=== PATIENT | female | born 1935 | race Caucasian/White ===

== ENCOUNTER 2016-05-27 10:36 | Outpatient (CLI) | payer MEDICARE, OTHER | END 2016-05-27 10:37 | disposition home or self-care (01) | DX: Z00.00 Encounter for general adult medical examination without abnormal findings (principal); E78.5 Hyperlipidemia, unspecified; J30.9 Allergic rhinitis, unspecified; K21.9 Gastro-esophageal reflux disease without esophagitis; M25.552 Pain in left hip; R73.01 Impaired fasting glucose; E66.9 Obesity, unspecified; I83.10 Varicose veins of unspecified lower extremity with inflammation; I10 Essential (primary) hypertension; R32 Unspecified urinary incontinence; I87.2 Venous insufficiency (chronic) (peripheral) ==

== ENCOUNTER 2016-06-18 14:01 | Outpatient (CLI) | payer MEDICARE, OTHER | END 2016-06-18 14:02 | disposition home or self-care (01) | DX: M19.012 Primary osteoarthritis, left shoulder (principal) ==

== ENCOUNTER 2016-07-02 17:47 | Outpatient (CLI) | payer MEDICARE, OTHER | END 2016-07-02 17:48 | disposition home or self-care (01) | DX: M75.102 Unspecified rotator cuff tear or rupture of left shoulder, not specified as traumatic (principal); M19.012 Primary osteoarthritis, left shoulder; M62.512 Muscle wasting and atrophy, not elsewhere classified, left shoulder ==

== ENCOUNTER 2017-05-15 11:55 | Outpatient (CLI) | payer MEDICARE, OTHER | END 2017-05-15 11:56 | disposition critical access hospital (66) | LOC: EMS 11:55 | PROVIDERS: ATTEND Surgery | DX: M25.561 Pain in right knee (principal); R21 Rash and other nonspecific skin eruption | CPT/HCPCS: A0425; A0427 ==

== ENCOUNTER 2017-05-15 12:23 | Inpatient (IN) | payer MEDICARE, OTHER ==
[2017-05-15] MEDS ORDERED: SODIUM CHLORIDE 0.9% 1,000 ML IV ONE (12:42)
[2017-05-15] MEDS ORDERED: ACETAMINOPHEN 1,000 MG/100 ML 100 ML IV STA (12:49)
[2017-05-15 13:14] LABS: BASOPHILS % (AUTO) 0.2 %; HGB - HEMOGLOBIN 12.3 g/dL (12.0-16.0); LYMPHOCYTES # (AUTO) 0.7 10^3/uL (1.5-3.5); LYMPHOCYTES % (AUTO) 4.2 %; MEAN CORPUSCULAR HEMOGLOBIN 29.8 pg (27.0-31.0); MEAN CORPUSCULAR HGB CONC 32.8 g/dL (32.0-36.0); MEAN CORPUSCULAR VOLUME 90.7 fL (81.0-99.0); MEAN PLATELET VOLUME 7.1 fL (7.9-10.8); MONOCYTES # (AUTO) 1.1 10^3/uL (0.0-1.0); MONOCYTES % (AUTO) 6.6 %; NEUTROPHILS # (AUTO) 15.1 10^3/uL (1.5-6.6); PLT - PLATELET COUNT 210 10^3/uL (130-450); RED BLOOD COUNT 4.12 10^6/uL (4.20-5.40); RED CELL DISTRIBUTION WIDTH 14.2 % (12.0-15.0)
[2017-05-15 13:24] LABS: CALCIUM 9.4 mg/dL (8.5-10.3); CREATININE 0.8 mg/dL (0.4-1.0)
[2017-05-15] MEDS ORDERED: VANCOMYCIN INJ 1 GM in SODIUM CHLORIDE 0.9% 250 ML IV STA (13:35)
[2017-05-15] MEDS ORDERED: PIPERACILLIN/TAZOBACTAM 3.375 GM in SODIUM CHLORIDE 0.9% MINIBAG 100 ML IV STA (13:35)
--- NOTE | 2017-05-15 13:55 | ED Physician Documentation ---
History of Present Illness - Stated complaint Stated Complaint: R KNEE PX - Chief complaint Chief Complaint: Ext Problem - Additonal information Additional information: hx from pt 81 female s/p R total knee by Dr Garcia [facility] 2014 has venous insuff and an ulcer to her RLE and recurrent strep cellulitis 4 days of "flu like sx" fever myalgia fatigue and 2 days of severe R knee pain RLE is warm and red more than normal for her no cough NVD Review of Systems Constitutional: reports: Fever, Chills, Myalgias, Fatigue Respiratory: denies: Cough GI: denies: Abdominal Pain, Nausea, Vomiting, Diarrhea : denies: Dysuria Skin: reports: Rash Musculoskeletal: reports: Extremity pain, Joint pain Endocrine: denies: Easy bruising / bleeding Immunocompromised: denies: Immunocompromised PD PAST MEDICAL HISTORY - Past Medical History Neuro: Headache/migraine GI: GERD, Hiatal hernia - Past Surgical History Past Surgical History: Yes Ortho: Knee replacement /OPERATIONS CONSULTANT: Hysterectomy - Present Medications Home Medications: Ambulatory Orders Medication Instructions Recorded Confirmed Fexofenadine HCl 180 mg PO DAILY 02/22/16 02/22/16 Losartan Potassium [Losartan 100 mg PO DAILY 02/22/16 05/15/17 Potassium] Omeprazole 20 mg PO BID 02/22/16 02/22/16 - Allergies Allergies/Adverse Reactions: Allergies Allergy/AdvReac Type Severity Reaction Status Date / Time naproxen AdvReac Unknown Verified 02/22/16 20:27 - Social History Does the pt smoke?: No Smoking Status: Never smoker Does the pt drink ETOH?: Yes Does the pt have substance abuse?: No - Immunizations Immunizations are current?: Yes - POLST Patient has POLST: No PD ED PE NORMAL - Vitals Vital signs reviewed: Yes - General General: Alert and oriented X 3 - Cardiac Cardiac: RRR, No murmur - Respiratory Respiratory: No respiratory distress, Clear bilaterally - Abdomen Abdomen: Soft, Non tender - Derm Derm: Other (cellulitis RLE, approx 2 cm ulcer distal medial pretibial region with eschar, R knee warm red and swollen and severely painful to try and range, + MSV to foot, no crepitus or bullae) - Extremities Extremities: Other (see derm exam) - Neuro Neuro: Alert and oriented X 3, No motor deficit, No sensory deficit - Psych Psych: Normal mood Results - Vitals Vitals: Vital Signs - 24 hr 05/15/17 05/15/17 12:30 16:04 Temperature 36.8 C 36.8 C Heart Rate 87 81 Respiratory 18 20 Rate Blood Pressure 181/69 H 129/72 O2 Saturation 97 97 Oxygen O2 Source Room air - Labs Labs: Microbiology 05/15/17 13:30 Gram Stain - Final Synovial Fluid Laboratory Tests 05/15/17 05/15/17 05/15/17 12:42 13:07 13:07 WBC 17.0 H RBC 4.12 L Hgb 12.3 Hct 37.4 MCV 90.7 MCH 29.8 MCHC 32.8 RDW 14.2 Plt Count 210 MPV 7.1 L Neut # 15.1 H Lymph # 0.7 L Beckham # 1.1 H Eos # 0.0 Baso # 0.0 Absolute Nucleated RBC 0.00 Nucleated RBC % 0.0 Sodium 136 Potassium 3.4 L Chloride 97 L Carbon Dioxide 24 Anion Gap 15.0 H BUN 18 Creatinine 0.8 Estimated GFR (MDRD) 69 L Glucose 156 H Lactic Acid 1.1 Calcium 9.4 Fluid Source Fluid Color Fluid Clarity Fluid WBC Fluid RBC Fluid Neutrophils % Fluid Lymphocytes % Fluid Monocytes % Fld Mesothelial Cell % Fluid Crystals 05/15/17 05/15/17 13:30 13:30 WBC RBC Hgb Hct MCV MCH MCHC RDW Plt Count MPV Neut # Lymph # Beckham # Eos # Baso # Absolute Nucleated RBC Nucleated RBC % Sodium Potassium Chloride Carbon Dioxide Anion Gap BUN Creatinine Estimated GFR (MDRD) Glucose Lactic Acid Calcium Fluid Source SYNOVIAL FLUID Fluid Color BLOODY Fluid Clarity CLOUDY Fluid WBC 95169 Fluid RBC 53764 Fluid Neutrophils % 92 Fluid Lymphocytes % 2 Fluid Monocytes % 6 Fld Mesothelial Cell % Not Reportable Fluid Crystals NONE SEEN - Rads (name of study) knee Radiology: See rad report (total knee hardware, no subcut gas) PD MEDICAL DECISION MAKING - ED course ED course: RLE cellultiis likely 2/2 venous insuff ulcer, hx strep cellulitis, now spread to knee and exam suggests septic prosthetic knee spoke to Prov ortho and Dr Garcia is not the television production technician - so television production technician ortho advises could be tapped here at [facility] by ortho Dr Rios promptly to ER to see pt and agrees with concern and tapped knee - approx 40 cc cloudy pinkish fluid synovial fluid shows 40K WBC which is borderline - no organisms on gram stain d/w ortho Dr Rios again and he rec tx for cellultiis and wait for cultures on synovial fluid - if + growth will need surgery will admit to hospitalist with ortho consulting Departure - Departure Disposition: 66 [facility] DC/Xfer Clinical Impression: Cellulitis Qualifiers: Site of cellulitis: extremity Site of cellulitis of extremity: lower extremity Laterality: right Qualified Code(s): L03.115 - Cellulitis of right lower limb Condition: Fair
--- NOTE | 2017-05-15 13:56 | XRAY Report ---
EXAM: RIGHT KNEE RADIOGRAPHY EXAM DATE: 05/15/2017 01:21 PM. CLINICAL HISTORY: Infected total knee. COMPARISON: None. TECHNIQUE: 2 views. FINDINGS: Bones: Status post total knee arthroplasty with expected position of the components. No rachel-hardware lucency. No acute fracture. Joints: No dislocation. Small effusion. Soft Tissues: Diffuse soft tissue edema. IMPRESSION: Knee joint effusion. No evidence of hardware loosening. LYNDSEY Referring Provider Line: [phone] SITE ID: [id number]
[2017-05-15 14:02] LABS: CC,BF RBC 17188 /mm^3
[2017-05-15 15:30] LABS: LYMPHOCYTES %,BODY FLUID 2
[2017-05-15 15:31] LABS: BF SOURCE SYNOVIAL FLUID; MONOCYTES %,BODY FLUID 6 %
[2017-05-15 15:33] LABS: BF COLOR BLOODY
[2017-05-15] MEDS ORDERED: POTASSIUM CHLORIDE 20 MEQ TABLET PO STA (17:09)
[2017-05-15] MEDS ORDERED: SODIUM CHLORIDE FLUSH 0.9% 10 ML SYRINGE IVP PRN (17:10)
[2017-05-15] MEDS ORDERED: ZOLPIDEM 5 MG TABLET PO PRN (17:10)
[2017-05-15] MEDS ORDERED: ONDANSETRON 4 MG/2 ML VIAL IVP PRN (17:10)
--- NOTE | 2017-05-15 17:20 | HISTORY & PHYSICAL EXAMINATION ---
Chief Complaint - Chief Complaint Chief Complaint: right knee pain History of Present Illness - Admitted From Admitted From:: ER - History Obtained From History obtained from: pt - History of Present Illness HPI Comment/Other: Ms. Jo is a 81-year-old female with a past medical history significant for recurrence cellulits on bilateral lower extremities, mainly on right lower extremity, venous insufficiency, right knee replacement on 2013, headache/ migraine, GERD, hiatal hernia, who present ER complaint of right knee pain. Pt report she had right knee replacement on 2013 on [facility] by Dr. Garcia. Pt report since this surgery her right lower extremity appear size bigger than left one. Pt also report she usually got cellulitis on bilateral lower extremities every six months, right lower extremity more than left one. In last infection, her skin on right lower extremity was teared, and Pt report the wound culture was positive for staphylococcus aureus. Pt report she had 4 days of Flu-like symptoms, lower degree fever at 100.6, fatigue, myalgia. She also report she had 2 days severe right knee pain. She report her right lower extremity is warm, erythema than her normal status. Pt denies chest pain, shortness of breath, cough, abdominal pain, nausea, vomiting, diarrhea, vision changing. Xray of knee reveals joint effusion, but no evidence of hardware loosening. Surgeon Dr. Rios drain synovial fluid from right knee. The fluid reveals no positive gram staining [place] preliminary [place] [address]. The synovial culture is pending. In lab test, there is elevated WBC in CBC, K is 3.4 , otherwise, it is unremarkable. History - Past Medical History Neuro: reports: Headache/migraine GI: reports: GERD, Hiatal hernia MRSA Hx?: No - Past Surgical History Ortho: reports: Knee replacement /BUFFERER: reports: Hysterectomy - Family & Social History Family History Comment/Other: pt with her is living at [facility], no child. Living arrangement: At home Living Situation: With spouse/s.o. Social History Notes: pt denies cigarette smoking, alcoholic or drug abuse. - Substance History Use: Uses substance without health or social issues: NONE Abuse: Recurrent use of substance despite neg consequences: NONE Dependence: Experiences withdrawal or developed tolerances: NONE - POLST Patient has POLST: No POLST Status: Full Code (with CPR but no incubation.) Meds/Allgy - Home Medications Home Medications: Ambulatory Orders Medication Instructions Recorded Confirmed Fexofenadine HCl 180 mg PO DAILY 02/22/16 02/22/16 Losartan Potassium [Losartan 100 mg PO DAILY 02/22/16 05/15/17 Potassium] Omeprazole 20 mg PO BID 02/22/16 02/22/16 - Allergies Allergies/Adverse Reactions: Allergies Allergy/AdvReac Type Severity Reaction Status Date / Time naproxen AdvReac Unknown Verified 02/22/16 20:27 Review of Systems - Constitutional Constitutional: reports: Fever, Chills, Malaise. denies: Fatigue, Weakness, Poor appetite, Diaphoresis, Night sweats - Eyes Eyes: denies: Pain, Irritation, Amaurosis, Blurred vision, Spots in vision, Field loss, Vision loss, Dipolpia - Ears, Nose & Throat Ears, Nose & Throat: denies: Ear pain, Hearing loss, Hearing aids, Vertigo, Nasal pain, Nasal discharge, Nosebleeds, Nasal congestion, Dentures, Sore throat , Hoarseness, Mouth lesions, Bleeding gums - Cardiovascular Cariovascular: denies: Irregular heart rate, Palpitations, Chest pain, Edema, Lightheadedness, Syncope, Exertional dyspnea, Decr. exercise tolerance - Respiratory Respiratory: denies: Cough, Sputum production, Wheezing, Snoring, Hemoptysis, Orthopnea, SOB at rest, SOB with exertion, Apnea - Gastrointestinal Gastrointestinal: denies: Abdominal pain, Abdominal distention, Constipation, Diarrhea, Change in bowel habits, Rectal bleeding, Black stools, Bloody stools, Nausea, Vomiting, Wong blood emesis, Coffee grounds emesis - Genitourinary Genitourinary: denies: Dysuria, Frequency, Urgency, Hematuria, Incontinence, Flank pain, Nocturia - Musculoskeletal Musculoskeletal: reports: Joint pain, Joint swelling. denies: Muscle pain, Back pain, Muscle aches, Stiffness, Limited range of motion, Muscle weakness, Gout - Integumentary Integumentary: reports: Rash. denies: Pruritis, Lesions, Dryness, Lumps, Acne, Pigment changes, Nail changes - Neurological Neurological: denies: General weakness, Focal weakness, Headache, Dizziness, Numbness, Memory problems, Pre-existing deficit, Abnormal gait, Seizures, Incoordination, Slurred speech - Psychiatric Psychiatric: denies: Depression, Anxiety, Suicidal, Delusions, Hallucinations, Homicidal - Endocrine Endocrine: denies: Polyuria, Polydypsia, Polyphagia, Intolerance to cold - Hematologic/Lymphatic Hematologic/Lymphatic: reports: Recurrent infections. denies: Anemia, Bruising , Petechiae, Blood clots, Lymphadenopathy, Bleeding tendencies Exam - Vital Signs Reviewed Vital Signs: Yes Vital Signs: Vital Signs x48h Temp Pulse Resp BP Pulse Ox 05/15/17 16:04 36.8 C 81 20 129/72 97 05/15/17 12:30 36.8 C 87 18 181/69 H 97 - Physical Exam General Appearance: positive: No acute distress, Alert. negative: Lethargic Eyes Bilateral: positive: Normal inspection, PERRL, No lid inflammation, Conjunctivae nml ENT: positive: ENT inspection nml, Pharynx nml, No signs of dehydration. negative: Purulent nasal drainage, Pharyngeal erythema, Oral lesions Neck: positive: Nml inspection, Thyroid nml, No JVD, Trachea midline. negative : Thyromegaly, Lymphadenopathy (R), Lymphadenopathy (L), Stiff neck, Carotid bruit, Swelling/bruising, Tracheal deviation Respiratory: positive: Chest non-tender, No respiratory distress, Breath sounds nml. negative: Wheezes, Rales, Rhonchi Cardiovascular: positive: Regular rate & rhythm, No murmur, No gallop. negative : Irregularly irregular, Extrasystoles, Tachycardia, Bradycardia, Systolic murmur, Diastolic murmur Peripheral Pulses: positive: 2+ Abdomen: positive: Non-tender, No organomegaly, Nml bowel sounds, No distention. negative: Tenderness, Guarding, Rebound Back: positive: Nml inspection. negative: CVA tenderness (R), CVA tenderness (L ) Skin: positive: Color nml, Warm, Dry, Skin rash. negative: Cyanosis, Diaphoresis, Pallor Extremities: positive: Non-tender, Full ROM, Nml appearance. negative: Calf tenderness, Joint swelling, Dolores's sign/cords Neurologic/Psychiatric: positive: Oriented x3, Sensation nml, Mood/affect nml. negative: Sensory loss, Facial droop, Slurred/abnml speech, Depressed mood/ affect Conclusion/Plan - Problem List (1) Cellulitis Conclusion/Plan: recurrent cellulits, positive staph., and possible knee synovial infection. reported fever at home, significant elevated WBC, consideration of SIRS or pre- septic condition Vancomycin Zosyn follow knee synovial culture follow blood culture IVF elevate lower extremity for venous insufficiency Qualifiers: Site of cellulitis: extremity Site of cellulitis of extremity: lower extremity Laterality: right Qualified Code(s): L03.115 - Cellulitis of right lower limb (2) Right knee pain Conclusion/Plan: consult with Orthopedics follow up synovial culture continue antibiotics pain control status post of knee replacement, consult with PT (3) HTN (hypertension) Conclusion/Plan: stable, resume of Losartan vital monitor (4) Migraine Conclusion/Plan: hx of headache/migraine, stable, continue monitor (5) GERD (gastroesophageal reflux disease) Conclusion/Plan: stable, Pepcid prophylaxis daily (6) DVT prophylaxis Conclusion/Plan: SCD and Lovenox (7) Full code status Conclusion/Plan: pt request clearly full code with CPR but without incubation. - Lab Results Fish Bones: 05/16/17 05:00 05/16/17 05:00 Core Measures - Anticipated LOS I expect patient to be DC'd or transferred within 96 hours.: Yes
[2017-05-15] MEDS ORDERED: VANCOMYCIN PER PHARMACY 1.5 GM in SODIUM CHLORIDE 0.9% 250 ML IV SCH (18:00)
[2017-05-15] MEDS: ACETAMINOPHEN 325 MG TABLET PO PRN (18:37)
[2017-05-15] MEDS: PIPERACILLIN/TAZOBACTAM 3.375 GM in SODIUM CHLORIDE 0.9% MINIBAG 100 ML IV SCH (19:43)
[2017-05-15] MEDS: SODIUM CHLORIDE 0.9% 1,000 ML IV SCH (19:43)
[2017-05-15] MEDS: SODIUM CHLORIDE FLUSH 0.9% 10 ML SYRINGE IVP SCH (19:49)
[2017-05-16] MEDS: ACETAMINOPHEN 325 MG TABLET PO PRN ×5 (00:35→22:45)
[2017-05-16] MEDS: PIPERACILLIN/TAZOBACTAM 3.375 GM in SODIUM CHLORIDE 0.9% MINIBAG 100 ML IV SCH ×4 (02:14→20:02)
[2017-05-16] MEDS: SODIUM CHLORIDE FLUSH 0.9% 10 ML SYRINGE IVP SCH ×3 (03:37→22:27)
[2017-05-16 05:23] LABS: BASOPHILS % (AUTO) 0.3 %; HGB - HEMOGLOBIN 11.4 g/dL (12.0-16.0); LYMPHOCYTES # (AUTO) 1.1 10^3/uL (1.5-3.5); LYMPHOCYTES % (AUTO) 8.5 %; MEAN CORPUSCULAR HEMOGLOBIN 30.1 pg (27.0-31.0); MEAN CORPUSCULAR VOLUME 91.3 fL (81.0-99.0); MEAN PLATELET VOLUME 7.5 fL (7.9-10.8); NEUTROPHILS # (AUTO) 10.7 10^3/uL (1.5-6.6); NEUTROPHILS % (AUTO) 83.2 %; PLT - PLATELET COUNT 202 10^3/uL (130-450); RED BLOOD COUNT 3.78 10^6/uL (4.20-5.40); RED CELL DISTRIBUTION WIDTH 14.2 % (12.0-15.0); WHITE BLOOD COUNT 12.8 x10^3/uL (4.8-10.8)
[2017-05-16 05:32] LABS: ALBUMIN 2.8 g/dL (3.2-5.5); ALBUMIN/GLOBULIN RATIO 0.9 (1.0-2.2); BILIRUBIN,TOTAL 0.7 mg/dL (0.2-1.0); CALCIUM 8.1 mg/dL (8.5-10.3); CREATININE 0.8 mg/dL (0.4-1.0); MAGNESIUM 1.9 mg/dL (1.7-2.8)
[2017-05-16] MEDS: SODIUM CHLORIDE 0.9% 1,000 ML IV SCH (08:12)
[2017-05-16] MEDS ORDERED: VANCOMYCIN INJ 1.25 GM in SODIUM CHLORIDE 0.9% 250 ML IV SCH (09:00)
[2017-05-16] MEDS ORDERED: VANCOMYCIN 1.5 GM/NS 500 ML 1.5 GM/500 ML BAG IV SCH (10:00)
[2017-05-16] MEDS: ENOXAPARIN 40 MG/0.4 ML SYRINGE SUBQ SCH (10:01)
[2017-05-16] MEDS: LOSARTAN 50 MG TABLET PO SCH (10:02)
[2017-05-16] MEDS: FAMOTIDINE 20 MG TABLET PO SCH (10:02)
[2017-05-16] MEDS: POLYETHYLENE GLYCOL 3350 17 GM PACKET PO SCH (10:07)
--- NOTE | 2017-05-16 12:36 | PROVIDER PROGRESS NOTE ---
Subjective - Prog Note Date Prog Note Date: 05/16/17 Prog Note Time: 12:34 - Subjective Pt reports feeling: Improved (Less pain. Still painful with knee motion.) Objective - Vital Signs/Intake & Output Vital Signs: Vital Signs x48h Temp Pulse Resp BP Pulse Ox 05/16/17 12:26 36.6 C 90 20 154/45 H 98 05/16/17 08:07 36.9 C 83 18 146/50 H 96 05/16/17 05:00 36.9 C 85 18 133/89 H 95 Intake & Output: Intake & Output 05/13/17 05/14/17 05/15/17 05/16/17 23:59 23:59 23:59 23:59 Intake Total 200 1877.583 Balance 200 1877.583 - Lab Results Fish Bones: 05/16/17 05:00 05/16/17 05:00 Other Labs: Lab Results x24hrs 05/16/17 05/16/17 Range/Units 05:00 05:00 WBC 12.8 H (4.8-10.8) x10^3/uL RBC 3.78 L (4.20-5.40) 10^6/uL Hgb 11.4 L (12.0-16.0) g/dL Hct 34.5 L (37.0-47.0) % MCV 91.3 (81.0-99.0) fL MCH 30.1 (27.0-31.0) pg MCHC 33.0 (32.0-36.0) g/dL RDW 14.2 (12.0-15.0) % Plt Count 202 (130-450) 10^3/uL MPV 7.5 L (7.9-10.8) fL Neut # 10.7 H (1.5-6.6) 10^3/uL Lymph # 1.1 L (1.5-3.5) 10^3/uL Ashley # 1.0 (0.0-1.0) 10^3/uL Eos # 0.0 (0.0-0.7) 10^3/uL Baso # 0.0 (0.0-0.1) 10^3/uL Absolute Nucleated RBC 0.00 x10^3/uL Nucleated RBC % 0.0 /100WBC Sodium 140 (135-145) mmol/L Potassium 3.7 (3.5-5.0) mmol/L Chloride 108 (101-111) mmol/L Carbon Dioxide 22 (21-32) mmol/L Anion Gap 10.0 (6-13) BUN 15 (6-20) mg/dL Creatinine 0.8 (0.4-1.0) mg/dL Estimated GFR (MDRD) 69 L (>89) Glucose 150 H (70-100) mg/dL Calcium 8.1 L (8.5-10.3) mg/dL Magnesium 1.9 (1.7-2.8) mg/dL Total Bilirubin 0.7 (0.2-1.0) mg/dL AST 14 (10-42) IU/L ALT 15 (10-60) IU/L Alkaline Phosphatase 53 (42-121) IU/L Total Protein 6.0 L (6.7-8.2) g/dL Albumin 2.8 L (3.2-5.5) g/dL Globulin 3.2 (2.1-4.2) g/dL Albumin/Globulin Ratio 0.9 L (1.0-2.2) - Other Results/Comments Other Results/Comments: EXAM: Less calf swelling/tenderness/redness. Knee swelling less since aspiration. ROM: 20 degrees and painful. C&S: preliminary finding of probable beta streptococcal species growing out. 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 Cultures are growing out Streptococcal organisms from knee aspiration done in ER yesterday. PLAN: Will transfer to [facility] to patient's operating surgeon, Dr. Jose French , if possible, for definitive surgical treatment of infection. Qualifiers: Encounter type: initial encounter Qualified Code(s): T84.53XA - Infection and inflammatory reaction due to internal right knee prosthesis, initial encounter
--- NOTE | 2017-05-16 12:58 | PROVIDER PROGRESS NOTE ---
Subjective - Prog Note Date Prog Note Date: 05/16/17 - Subjective Pt reports feeling: Improved Subjective: pt report her pain in knee is improved. Erythema and swelling in right lower extremity is better improved. Pt denies fever, chill, cough,chest pain, shortness of breath, headache. Dr Rios call me say, the synovial Cultures are growing out Streptococcal organisms from knee aspiration done in ER yesterday, pt may be transferred to [facility] to patient's operating surgeon, Dr. Jose French , if possible, for definitive surgical treatment of infection Current Medications - Current Medications Current Medications: Active Medications Acetaminophen (Tylenol) 650 mg PO Q4HR PRN PRN Reason: Pain 1 to 4 Last Admin: 05/16/17 11:11 Dose: 650 mg Enoxaparin Sodium (Lovenox) 40 mg SUBQ DAILY [facility] Last Admin: 05/16/17 10:01 Dose: 40 mg Famotidine (Pepcid) 20 mg PO DAILY [facility] Last Admin: 05/16/17 10:02 Dose: 20 mg Sodium Chloride (Normal Saline 0.9%) 1,000 mls @ 85 mls/hr IV .[id number] [facility] Last Infusion: 05/16/17 10:05 Dose: 0 mls/hr Piperacillin Sod/Tazobactam (Sod 3.375 gm/ Sodium Chloride) 100 mls @ 200 mls/ hr IV Q6H [facility] Last Infusion: 05/16/17 08:45 Dose: Infused Vancomycin/Sodium Chloride (Vanco/Sod Chloride 0.9%) 1.5 gm in 500 mls @ 250 mls/hr IV Q24H [facility] Last Admin: 05/16/17 10:02 Dose: 250 mls/hr Losartan Potassium (Cozaar) 100 mg PO DAILY [facility] Last Admin: 05/16/17 10:02 Dose: 100 mg Ondansetron HCl (Zofran Inj) 4 mg IVP Q6HR PRN PRN Reason: Nausea / Vomiting Polyethylene Glycol (Miralax) 17 gm PO DAILY [facility] Last Admin: 05/16/17 10:07 Dose: Not Given Sodium Chloride (Normal Saline Flush 0.9%) 10 ml IVP PRN PRN PRN Reason: NEEDED PER PROVIDER ORDERS Sodium Chloride (Normal Saline Flush 0.9%) 10 ml IVP Q8HR [facility] Last Admin: 05/16/17 03:37 Dose: Not Given Zolpidem Tartrate (Ambien) 5 mg PO QPM PRN PRN Reason: Insomnia Fexofenadine HCl 180 mg PO DAILY 02/22/16 Losartan Potassium [Losartan Potassium] 100 mg PO DAILY 02/22/16 raNITIdine [Zantac] 150 mg PO BID 05/16/17 Objective - Vital Signs/Intake & Output Reviewed Vital Signs: Yes Vital Signs: Vital Signs x48h Temp Pulse Resp BP Pulse Ox 05/16/17 12:26 36.6 C 90 20 154/45 H 98 05/16/17 08:07 36.9 C 83 18 146/50 H 96 05/16/17 05:00 36.9 C 85 18 133/89 H 95 Intake & Output: Intake & Output 05/13/17 05/14/17 05/15/17 05/16/17 23:59 23:59 23:59 23:59 Intake Total 200 1877.583 Balance 200 1877.583 - Objective General Appearance: positive: No acute distress, Alert. negative: Lethargic Eyes Bilateral: positive: Normal inspection, PERRL, No lid inflammation, Conjunctivae nml ENT: positive: ENT inspection nml, Pharynx nml, No signs of dehydration. negative: Purulent nasal drainage, Pharyngeal erythema, Oral lesions, Dry mucous membranes Neck: positive: Nml inspection, Thyroid nml, No JVD, Trachea midline. negative : Thyromegaly, Lymphadenopathy (R), Lymphadenopathy (L), Stiff neck, Carotid bruit, Swelling/bruising, Tracheal deviation Respiratory: positive: Chest non-tender, No respiratory distress, Breath sounds nml. negative: Wheezes, Rales, Rhonchi Cardiovascular: positive: Regular rate & rhythm, No murmur, No gallop. negative : Irregularly irregular, Extrasystoles, Tachycardia, Bradycardia, Systolic murmur, Diastolic murmur Peripheral Pulses: 2+ Radial (R), 2+ Radial (L), 2+ Dorsalis pedis (R), 2+ Dorsalis pedis (L) Abdomen: positive: Non-tender, No organomegaly, Nml bowel sounds, No distention. negative: Tenderness, Guarding, Rebound Back: positive: Nml inspection. negative: CVA tenderness (R), CVA tenderness (L ) Skin: positive: Color nml, Warm, Dry. negative: Cyanosis, Diaphoresis, Pallor, Skin rash Extremities: positive: Non-tender, Nml appearance. negative: Calf tenderness, Joint swelling, Dolores's sign/cords Neurologic/Psychiatric: positive: Oriented x3, Sensation nml, Mood/affect nml. negative: Sensory loss, Facial droop, Slurred/abnml speech - Lab Results Fish Bones: 05/16/17 05:00 05/16/17 05:00 Other Labs: Lab Results x24hrs 05/16/17 05/16/17 Range/Units 05:00 05:00 WBC 12.8 H (4.8-10.8) x10^3/uL RBC 3.78 L (4.20-5.40) 10^6/uL Hgb 11.4 L (12.0-16.0) g/dL Hct 34.5 L (37.0-47.0) % MCV 91.3 (81.0-99.0) fL MCH 30.1 (27.0-31.0) pg MCHC 33.0 (32.0-36.0) g/dL RDW 14.2 (12.0-15.0) % Plt Count 202 (130-450) 10^3/uL MPV 7.5 L (7.9-10.8) fL Neut # 10.7 H (1.5-6.6) 10^3/uL Lymph # 1.1 L (1.5-3.5) 10^3/uL [place]ham # 1.0 (0.0-1.0) 10^3/uL Eos # 0.0 (0.0-0.7) 10^3/uL Baso # 0.0 (0.0-0.1) 10^3/uL Absolute Nucleated RBC 0.00 x10^3/uL Nucleated RBC % 0.0 /100WBC Sodium 140 (135-145) mmol/L Potassium 3.7 (3.5-5.0) mmol/L Chloride 108 (101-111) mmol/L Carbon Dioxide 22 (21-32) mmol/L Anion Gap 10.0 (6-13) BUN 15 (6-20) mg/dL Creatinine 0.8 (0.4-1.0) mg/dL Estimated GFR (MDRD) 69 L (>89) Glucose 150 H (70-100) mg/dL Calcium 8.1 L (8.5-10.3) mg/dL Magnesium 1.9 (1.7-2.8) mg/dL Total Bilirubin 0.7 (0.2-1.0) mg/dL AST 14 (10-42) IU/L ALT 15 (10-60) IU/L Alkaline Phosphatase 53 (42-121) IU/L Total Protein 6.0 L (6.7-8.2) g/dL Albumin 2.8 L (3.2-5.5) g/dL Globulin 3.2 (2.1-4.2) g/dL Albumin/Globulin Ratio 0.9 L (1.0-2.2) Assessment/Plan - Problem List (1) Cellulitis Impression: (1) Cellulitis Conclusion/Plan: pt report she feel better. Erythema and swelling are better, WBc from 17 to 12 continue antibiotics follow up blood culture recurrent cellulits, positive staph., and possible knee synovial infection. reported fever at home, significant elevated WBC, consideration of SIRS or pre- septic condition Vancomycin Zosyn follow knee synovial culture follow blood culture IVF elevate lower extremity for venous insufficiency (2) Right knee pain Conclusion/Plan: culture of synovial fluid reveals positive to Strep Agalactiae, per orthopedics recommend, pt is planned to transfer to [facility] her original knee replacement surgeon for advanced care on tomorrow. continue current antibiotics, sensitive study is pending now. consult with Orthopedics follow up synovial culture continue antibiotics pain control status post of knee replacement, consult with PT (3) HTN (hypertension) Conclusion/Plan: stable, continue current regime stable, resume of Losartan vital monitor (4) Migraine Conclusion/Plan: denies headache hx of headache/migraine, stable, continue monitor (5) GERD (gastroesophageal reflux disease) Conclusion/Plan: stable, Pepcid prophylaxis daily Qualifiers: Site of cellulitis: extremity Site of cellulitis of extremity: lower extremity Laterality: right Qualified Code(s): L03.115 - Cellulitis of right lower limb
--- NOTE | 2017-05-16 13:26 | CONSULTATION NOTE ---
DATE OF SERVICE: 05/16/2017 Physician: Les Rios MD REFERRING PHYSICIAN: Dr. Sharmila Cazares of the Emergency Room Department. 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 Garcia of [facility] in [place] in 2013, who presents initially to the emergency room with acute onset of right knee swelling and painful motion along with a flare-up of her right lower extremity cellulitis. She was seen in the emergency room and we were highly suspicious of possible infected right total knee. An aspiration was done in the emergency room after sterile skin preparation, and we obtained approximately 25 mL of cloudy fluid from her knee. The initial synovial fluid analysis showed a white count of 40,828, which were 92% neutrophils with no crystals seen. The initial Gram stain showed many white cells, but no organisms seen. She was admitted to the hospitalist service for IV antibiotics for treatment of her cellulitis as well as waiting for any culture results from the knee aspiration. This morning, check with microbiology shows that her initial plates from the knee aspirate fluid is growing out organisms which are presumably beta streptococcal organisms. PHYSICAL EXAMINATION: Patient initially presented with a swollen, somewhat tense knee effusion on the right knee. Has a healed anterior skin incision consistent with her prior total knee replacement. The patient only had about a 10-15 degrees of motion, which was very painful. Today, her exam has little change from her presentation in the emergency room. Neurovascularly she is intact. This redness and swelling in her distal calf is improving. MICROBIOLOGY: Discussion with the resource technician this morning indicates that she is preliminarily is growing out what appears to be beta streptococcal organisms from her knee aspirate. ASSESSMENT: 1. 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 2. 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 PLAN: Patient will continue with IV antibiotics, as she has already been started. I have discussed with the patient the need for her to be transferred to another facility to have definitive surgical management for her infected knee prostheses. Best recommendation would be to have her return to Dr. Garcia 's service over in [facility] for definitive orthopedic management of this infected total knee. TD: 05/16/2017 14:20
[2017-05-17] MEDS: SODIUM CHLORIDE 0.9% 1,000 ML IV SCH ×3 (01:58→20:47)
[2017-05-17] MEDS: PIPERACILLIN/TAZOBACTAM 3.375 GM in SODIUM CHLORIDE 0.9% MINIBAG 100 ML IV SCH ×4 (02:10→20:42)
[2017-05-17] MEDS: ACETAMINOPHEN 325 MG TABLET PO PRN ×4 (06:07→23:42)
[2017-05-17] MEDS: SODIUM CHLORIDE FLUSH 0.9% 10 ML SYRINGE IVP SCH ×3 (06:08→20:46)
[2017-05-17 06:35] LABS: BASOPHILS % (AUTO) 0.4 %; EOSINOPHILS % (AUTO) 0.1 %; HGB - HEMOGLOBIN 10.9 g/dL (12.0-16.0); LYMPHOCYTES % (AUTO) 7.9 %; MEAN CORPUSCULAR HEMOGLOBIN 29.9 pg (27.0-31.0); MEAN CORPUSCULAR HGB CONC 32.6 g/dL (32.0-36.0); MEAN CORPUSCULAR VOLUME 91.8 fL (81.0-99.0); MEAN PLATELET VOLUME 7.8 fL (7.9-10.8); MONOCYTES % (AUTO) 7.7 %; NEUTROPHILS # (AUTO) 10.5 10^3/uL (1.5-6.6); NEUTROPHILS % (AUTO) 83.9 %; PLT - PLATELET COUNT 216 10^3/uL (130-450); RED BLOOD COUNT 3.64 10^6/uL (4.20-5.40); RED CELL DISTRIBUTION WIDTH 14.3 % (12.0-15.0); WHITE BLOOD COUNT 12.5 x10^3/uL (4.8-10.8)
[2017-05-17 06:51] LABS: ALBUMIN 2.7 g/dL (3.2-5.5); ALBUMIN/GLOBULIN RATIO 0.8 (1.0-2.2); BILIRUBIN,TOTAL 0.7 mg/dL (0.2-1.0); CALCIUM 7.9 mg/dL (8.5-10.3); CREATININE 0.7 mg/dL (0.4-1.0); TOTAL PROTEIN 6.3 g/dL (6.7-8.2)
[2017-05-17] MEDS ORDERED: POTASSIUM CHLORIDE 20 MEQ TABLET PO ONE (07:47)
[2017-05-17] MEDS ORDERED: CALCIUM GLUCONATE 1,000 MG in SODIUM CHLORIDE 0.9% 50 ML IV ONE (08:30)
[2017-05-17] MEDS: LOSARTAN 50 MG TABLET PO SCH (08:49)
[2017-05-17] MEDS: FAMOTIDINE 20 MG TABLET PO SCH (08:50)
[2017-05-17] MEDS: ENOXAPARIN 40 MG/0.4 ML SYRINGE SUBQ SCH (08:50)
[2017-05-17] MEDS: POLYETHYLENE GLYCOL 3350 17 GM PACKET PO SCH (08:51)
--- NOTE | 2017-05-17 09:06 | PROVIDER PROGRESS NOTE ---
Subjective - Prog Note Date Prog Note Date: 05/17/17 Prog Note Time: 09:04 - Subjective Pt reports feeling: No change Objective - Vital Signs/Intake & Output Vital Signs: Vital Signs x48h Temp Pulse Resp BP Pulse Ox 05/17/17 08:00 36.5 C 88 28 H 153/52 H 97 05/17/17 05:00 37.7 C H 98 18 143/87 H 96 Intake & Output: Intake & Output 05/14/17 05/15/17 05/16/17 05/17/17 23:59 23:59 23:59 23:59 Intake Total 200 3630.750 565.667 Balance 200 3630.750 565.667 - Lab Results Fish Bones: 05/17/17 05:58 05/17/17 05:58 Other Labs: Lab Results x24hrs 05/17/17 05/17/17 Range/Units 05:58 05:58 WBC 12.5 H (4.8-10.8) x10^3/uL RBC 3.64 L (4.20-5.40) 10^6/uL Hgb 10.9 L (12.0-16.0) g/dL Hct 33.4 L (37.0-47.0) % MCV 91.8 (81.0-99.0) fL MCH 29.9 (27.0-31.0) pg MCHC 32.6 (32.0-36.0) g/dL RDW 14.3 (12.0-15.0) % Plt Count 216 (130-450) 10^3/uL MPV 7.8 L (7.9-10.8) fL Neut # 10.5 H (1.5-6.6) 10^3/uL Lymph # 1.0 L (1.5-3.5) 10^3/uL Door # 1.0 (0.0-1.0) 10^3/uL Eos # 0.0 (0.0-0.7) 10^3/uL Baso # 0.0 (0.0-0.1) 10^3/uL Absolute Nucleated RBC 0.00 x10^3/uL Nucleated RBC % 0.0 /100WBC Sodium 138 (135-145) mmol/L Potassium 3.3 L (3.5-5.0) mmol/L Chloride 109 (101-111) mmol/L Carbon Dioxide 21 (21-32) mmol/L Anion Gap 8.0 (6-13) BUN 10 (6-20) mg/dL Creatinine 0.7 (0.4-1.0) mg/dL Estimated GFR (MDRD) 81 L (>89) Glucose 150 H (70-100) mg/dL Calcium 7.9 L (8.5-10.3) mg/dL Total Bilirubin 0.7 (0.2-1.0) mg/dL AST 12 (10-42) IU/L ALT 15 (10-60) IU/L Alkaline Phosphatase 57 (42-121) IU/L Total Protein 6.3 L (6.7-8.2) g/dL Albumin 2.7 L (3.2-5.5) g/dL Globulin 3.6 (2.1-4.2) g/dL Albumin/Globulin Ratio 0.8 L (1.0-2.2) - Other Results/Comments Other Results/Comments: Exam: Knee still swolen and painful motion Assessment/Plan - Problem List (1) Infection of prosthetic right knee joint Impression: stable PLAN: Discussed with orthopedic hospitalist communications planner at [facility]. They will be the consulting service for patient's infect right TKR when she is transferred back to [facility] onto medical hospitalist service. Qualifiers: Encounter type: initial encounter Qualified Code(s): T84.53XA - Infection and inflammatory reaction due to internal right knee prosthesis, initial encounter
[2017-05-17] MEDS ORDERED: VANCOMYCIN INJ 1 GM, VANCOMYCIN INJ 500 MG in SODIUM CHLORIDE 0.9% 500 ML IV SCH (10:00)
--- NOTE | 2017-05-17 15:33 | PROVIDER PROGRESS NOTE ---
Subjective - Prog Note Date Prog Note Date: 05/17/17 - Subjective Pt reports feeling: Improved Subjective: pt's pain on righ knee is continuing to be improved. I called [facility] twice, there is no bed is available. I will call on 4pm again to see if available bed. Current Medications - Current Medications Current Medications: Active Medications Acetaminophen (Tylenol) 650 mg PO Q4HR PRN PRN Reason: Pain 1 to 4 Last Admin: 05/17/17 15:06 Dose: 650 mg Enoxaparin Sodium (Lovenox) 40 mg SUBQ DAILY [facility] Last Admin: 05/17/17 08:50 Dose: 40 mg Famotidine (Pepcid) 20 mg PO DAILY [facility] Last Admin: 05/17/17 08:50 Dose: 20 mg Sodium Chloride (Normal Saline 0.9%) 1,000 mls @ 85 mls/hr IV .[id number] [facility] Last Infusion: 05/17/17 06:02 Dose: 85 mls/hr Piperacillin Sod/Tazobactam (Sod 3.375 gm/ Sodium Chloride) 100 mls @ 200 mls/ hr IV Q6H [facility] Last Infusion: 05/17/17 14:59 Dose: Infused Vancomycin HCl 1 gm/Vancomycin HCl 500 mg/ Sodium Chloride 500 mls @ 250 mls/ hr IV Q24H [facility] Last Infusion: 05/17/17 13:01 Dose: Infused Losartan Potassium (Cozaar) 100 mg PO DAILY [facility] Last Admin: 05/17/17 08:49 Dose: 100 mg Ondansetron HCl (Zofran Inj) 4 mg IVP Q6HR PRN PRN Reason: Nausea / Vomiting Polyethylene Glycol (Miralax) 17 gm PO DAILY [facility] Last Admin: 05/17/17 08:51 Dose: Not Given Sodium Chloride (Normal Saline Flush 0.9%) 10 ml IVP PRN PRN PRN Reason: NEEDED PER PROVIDER ORDERS Sodium Chloride (Normal Saline Flush 0.9%) 10 ml IVP Q8HR [facility] Last Admin: 05/17/17 14:30 Dose: Not Given Zolpidem Tartrate (Ambien) 5 mg PO QPM PRN PRN Reason: Insomnia Fexofenadine HCl 180 mg PO DAILY 02/22/16 Losartan Potassium [Losartan Potassium] 100 mg PO DAILY 02/22/16 raNITIdine [Zantac] 150 mg PO BID 05/16/17 Objective - Vital Signs/Intake & Output Vital Signs: Vital Signs x48h Temp Pulse Resp BP Pulse Ox 05/17/17 13:00 37.4 C 95 16 161/64 H 95 05/17/17 08:00 36.5 C 88 28 H 153/52 H 97 Intake & Output: Intake & Output 05/14/17 05/15/17 05/16/17 05/17/17 23:59 23:59 23:59 23:59 Intake Total 200 3630.750 1860.667 Balance 200 3630.750 1860.667 - Objective General Appearance: positive: No acute distress, Alert. negative: Lethargic Eyes Bilateral: positive: Normal inspection, PERRL, No lid inflammation, Conjunctivae nml ENT: positive: ENT inspection nml, Pharynx nml, No signs of dehydration. negative: Purulent nasal drainage, Pharyngeal erythema, Oral lesions Neck: positive: Nml inspection, Thyroid nml, No JVD, Trachea midline. negative : Thyromegaly, Lymphadenopathy (R), Lymphadenopathy (L), Stiff neck, Carotid bruit, Swelling/bruising, Tracheal deviation Respiratory: positive: Chest non-tender, No respiratory distress, Breath sounds nml. negative: Wheezes, Rales, Rhonchi Cardiovascular: positive: Regular rate & rhythm, No murmur, No gallop. negative : Irregularly irregular, Extrasystoles, Tachycardia, Bradycardia, Systolic murmur, Diastolic murmur Peripheral Pulses: 2+ Radial (R), 2+ Radial (L), 2+ Dorsalis pedis (R), 2+ Dorsalis pedis (L) Abdomen: positive: Non-tender, No organomegaly, Nml bowel sounds, No distention. negative: Tenderness, Guarding, Rebound Back: positive: Nml inspection. negative: CVA tenderness (R), CVA tenderness (L ) Skin: positive: Color nml, No rash, Warm, Dry. negative: Cyanosis, Diaphoresis , Pallor Extremities: positive: Non-tender, Full ROM, Nml appearance. negative: Calf tenderness, Joint swelling, Dolores's sign/cords Neurologic/Psychiatric: positive: Oriented x3, Sensation nml, Mood/affect nml. negative: Sensory loss, Facial droop, Slurred/abnml speech, Depressed mood/ affect - Lab Results Fish Bones: 05/17/17 05:58 05/17/17 05:58 Other Labs: Lab Results x24hrs 05/17/17 05/17/17 Range/Units 05:58 05:58 WBC 12.5 H (4.8-10.8) x10^3/uL RBC 3.64 L (4.20-5.40) 10^6/uL Hgb 10.9 L (12.0-16.0) g/dL Hct 33.4 L (37.0-47.0) % MCV 91.8 (81.0-99.0) fL MCH 29.9 (27.0-31.0) pg MCHC 32.6 (32.0-36.0) g/dL RDW 14.3 (12.0-15.0) % Plt Count 216 (130-450) 10^3/uL MPV 7.8 L (7.9-10.8) fL Neut # 10.5 H (1.5-6.6) 10^3/uL Lymph # 1.0 L (1.5-3.5) 10^3/uL Davie # 1.0 (0.0-1.0) 10^3/uL Eos # 0.0 (0.0-0.7) 10^3/uL Baso # 0.0 (0.0-0.1) 10^3/uL Absolute Nucleated RBC 0.00 x10^3/uL Nucleated RBC % 0.0 /100WBC Sodium 138 (135-145) mmol/L Potassium 3.3 L (3.5-5.0) mmol/L Chloride 109 (101-111) mmol/L Carbon Dioxide 21 (21-32) mmol/L Anion Gap 8.0 (6-13) BUN 10 (6-20) mg/dL Creatinine 0.7 (0.4-1.0) mg/dL Estimated GFR (MDRD) 81 L (>89) Glucose 150 H (70-100) mg/dL Calcium 7.9 L (8.5-10.3) mg/dL Total Bilirubin 0.7 (0.2-1.0) mg/dL AST 12 (10-42) IU/L ALT 15 (10-60) IU/L Alkaline Phosphatase 57 (42-121) IU/L Total Protein 6.3 L (6.7-8.2) g/dL Albumin 2.7 L (3.2-5.5) g/dL Globulin 3.6 (2.1-4.2) g/dL Albumin/Globulin Ratio 0.8 L (1.0-2.2) Assessment/Plan - Problem List (1) Cellulitis Impression: (1) Cellulitis Conclusion/Plan: pt report she feel better. Erythema and swelling in the right lower extremity are much better, WBc from 17 to 12 continue antibiotics blood culture preliminary is negative recurrent cellulits, positive staph., and possible knee synovial infection. reported fever at home, significant elevated WBC, consideration of SIRS or pre- septic condition Vancomycin Zosyn follow knee synovial culture follow blood culture IVF elevate lower extremity for venous insufficiency (2) Right knee pain Conclusion/Plan: I called for transferring pt to [place]. The first twice, [facility] state they did not have bad available. The third time they asked me wait for hospitalist to call me back. But as far no hospitalist called me. Dr. rios called at this morning, per Dr. Rios state the on-call orthopedics in [place] accepted pt. culture of synovial fluid reveals positive to Strep Agalactiae, per orthopedics recommend, pt is planned to transfer to [facility] [place], her original knee replacement surgeon for advanced care on tomorrow. continue current antibiotics, sensitive study is pending now. consult with Orthopedics follow up synovial culture continue antibiotics pain control status post of knee replacement, consult with PT (3) HTN (hypertension) Conclusion/Plan: stable stable, continue current regime stable, resume of Losartan vital monitor (4) Migraine Conclusion/Plan: denies headache hx of headache/migraine, stable, continue monitor (5) GERD (gastroesophageal reflux disease) Conclusion/Plan: stable, Pepcid prophylaxis daily Qualifiers: Site of cellulitis: extremity Site of cellulitis of extremity: lower extremity Laterality: right Qualified Code(s): L03.115 - Cellulitis of right lower limb
[2017-05-17] MEDS: SACCHAROMYCES BOULARDII 250 MG CAPSULE PO SCH (23:42)
[2017-05-18] MEDS: PIPERACILLIN/TAZOBACTAM 3.375 GM in SODIUM CHLORIDE 0.9% MINIBAG 100 ML IV SCH ×2 (02:03→08:27)
[2017-05-18] MEDS: ACETAMINOPHEN 325 MG TABLET PO PRN (05:42)
[2017-05-18 05:48] LABS: BASOPHILS % (AUTO) 0.4 %; EOSINOPHILS # (AUTO) 0.1 10^3/uL (0.0-0.7); EOSINOPHILS % (AUTO) 0.6 %; LYMPHOCYTES % (AUTO) 9.2 %; MEAN CORPUSCULAR HGB CONC 31.5 g/dL (32.0-36.0); MEAN CORPUSCULAR VOLUME 95.1 fL (81.0-99.0); MEAN PLATELET VOLUME 7.8 fL (7.9-10.8); MONOCYTES # (AUTO) 0.8 10^3/uL (0.0-1.0); MONOCYTES % (AUTO) 7.3 %; NEUTROPHILS # (AUTO) 8.9 10^3/uL (1.5-6.6); NEUTROPHILS % (AUTO) 82.5 %; PLT - PLATELET COUNT 233 10^3/uL (130-450); RED BLOOD COUNT 3.67 10^6/uL (4.20-5.40); RED CELL DISTRIBUTION WIDTH 15.2 % (12.0-15.0); WHITE BLOOD COUNT 10.8 x10^3/uL (4.8-10.8)
[2017-05-18 06:02] LABS: ALBUMIN 2.7 g/dL (3.2-5.5); ALBUMIN/GLOBULIN RATIO 0.7 (1.0-2.2); BILIRUBIN,TOTAL 0.8 mg/dL (0.2-1.0); CALCIUM 8.2 mg/dL (8.5-10.3); CREATININE 0.7 mg/dL (0.4-1.0); TOTAL PROTEIN 6.4 g/dL (6.7-8.2)
[2017-05-18] MEDS: SODIUM CHLORIDE FLUSH 0.9% 10 ML SYRINGE IVP SCH ×2 (06:56→08:55)
[2017-05-18] MEDS ORDERED: POTASSIUM CHLORIDE 20 MEQ TABLET PO ONE (07:16)
[2017-05-18] MEDS: LOSARTAN 50 MG TABLET PO SCH (08:26)
[2017-05-18] MEDS: SACCHAROMYCES BOULARDII 250 MG CAPSULE PO SCH (08:26)
[2017-05-18] MEDS: ENOXAPARIN 40 MG/0.4 ML SYRINGE SUBQ SCH ×2 (08:26→08:41)
--- NOTE | 2017-05-18 08:27 | DISCHARGE SUMMARY ---
"Discharge Summary Discharge Date: 05/18/17 Discharging Provider: DUDLEY Primary Care Provider: Ronald Fuentes Condition at Discharge: Fair Discharge Disposition: 02 Transfer Acute Care Hosp Discharge Facility Name: [facility] - DIAGNOSES Admission Diagnoses: (1) Cellulitis (2) Right knee pain (3) HTN (hypertension) (4) Migraine (5) GERD (gastroesophageal reflux disease) Discharge Diagnoses with Status of Each Condition: (1) Cellulitis Great improved after treated with Vancomycin and Zosyn, transfer pt to [facility] for continue treatment (2) Right knee pain pain is controlled by pain management (3) knee synovial fluid infection fluid culture is positive for Strep., Agalactiae. Pt is transferred to [facility] for advanced care. (4) HTN (hypertension) stable (5) Migraine stable, no migraine headache (6) GERD (gastroesophageal reflux disease) stable - HPI History of Present Illness: Ms. Jo is a 81-year-old female with a past medical history significant for recurrence cellulits on bilateral lower extremities, mainly on right lower extremity, venous insufficiency, right knee replacement on 2013, headache/ migraine, GERD, hiatal hernia, who present ER complaint of right knee pain. Pt report she had right knee replacement on 2013 on [facility] by Dr. Garcia. Pt report since this surgery her right lower extremity appear size bigger than left one. Pt also report she usually got cellulitis on bilateral lower extremities every six months, right lower extremity more than left one. In last infection, her skin on right lower extremity was teared, and Pt report the wound culture was positive for staphylococcus aureus. Pt report she had 4 days of Flu-like symptoms, lower degree fever at 100.6, fatigue, myalgia. She also report she had 2 days severe right knee pain. She report her right lower extremity is warm, erythema than her normal status. Pt denies chest pain, shortness of breath, cough, abdominal pain, nausea, vomiting, diarrhea, vision changing. Xray of knee reveals joint effusion, but no evidence of hardware loosening. Surgeon Dr. Rios drain synovial fluid from right knee. The fluid reveals no positive gram staining [place] [address]. The synovial culture is pending. In lab test, there is elevated WBC in CBC, K is 3.4 , otherwise, it is unremarkable. - CONSULTS | PROCEDURES Consultations: Dr. Les Rios Procedures: right knee aspiration - HOSPITAL COURSE Hospital Course: Pt was admitted for right lower extremity cellulitis and right knee pain. Pt had right knee synovial fluid aspiration by Dr. Rios. The preliminary staining of fluid reveals no Gram positive or negative. But the culture of knee fluid was positive for Strep., Agalactiae. Pt was transferred to [facility] for advanced care of pt's right knee. Pt was treated with Vancomycin and Zosyn. The cellulitis has great improved. The erythema, swelling, and tenderness are great improved. Pt state she feels much better. - ALLERGIES Allergies/Adverse Reactions: Allergies Allergy/AdvReac Type Severity Reaction Status Date / Time naproxen AdvReac Unknown Verified 02/22/16 20:27 - MEDICATIONS Home Medications: Ambulatory Orders Medication Instructions Recorded Confirmed Fexofenadine HCl 180 mg PO DAILY 02/22/16 05/16/17 Losartan Potassium [Losartan 100 mg PO DAILY 02/22/16 05/15/17 Potassium] raNITIdine [Zantac] 150 mg PO BID 05/16/17 05/16/17 - PHYSICAL EXAM AT DISCHARGE General Appearance: positive: No acute distress, Alert. negative: Lethargic Eyes Bilateral: positive: Normal inspection, PERRL, No lid inflammation, Conjunctivae nml ENT: positive: ENT inspection nml, Pharynx nml, No signs of dehydration. negative: Purulent nasal drainage, Pharyngeal erythema, Oral lesions Neck: positive: Nml inspection, Thyroid nml, No JVD, Trachea midline. negative : Thyromegaly, Lymphadenopathy (R), Lymphadenopathy (L), Stiff neck, Carotid bruit, Swelling/bruising, Tracheal deviation Respiratory: positive: Chest non-tender, No respiratory distress, Breath sounds nml. negative: Wheezes, Rales, Rhonchi Cardiovascular: positive: Regular rate & rhythm, No murmur, No gallop. negative : Irregularly irregular, Extrasystoles, Tachycardia, Bradycardia, JVD present, Systolic murmur, Diastolic murmur Peripheral Pulses: positive: 2+ Abdomen: positive: Non-tender, No organomegaly, Nml bowel sounds, No distention. negative: Tenderness, Guarding, Rebound Back: positive: Nml inspection. negative: CVA tenderness (R), CVA tenderness (L ) Skin: positive: Color nml, Warm, Dry, Skin rash. negative: Cyanosis, Diaphoresis, Pallor Extremities: positive: Non-tender, Nml appearance. negative: Pedal edema, Calf tenderness, Joint swelling, Dolores's sign/cords Neurologic/Psychiatric: positive: Oriented x3, Motor nml, Sensation nml, Mood/ affect nml. negative: Sensory loss, Facial droop, Slurred/abnml speech, Depressed mood/affect - LABS Result Diagrams: 05/18/17 05:26 05/18/17 05:26 - FOLLOW UP Follow Up: pt was transferred to [facility] for advanced care - TIME SPENT Time Spent in Discharge (Minutes): 50"
[2017-05-18] MEDS: FAMOTIDINE 20 MG TABLET PO SCH (08:29)
[2017-05-18] MEDS: POLYETHYLENE GLYCOL 3350 17 GM PACKET PO SCH (08:29)
[2017-05-18] MEDS ORDERED: hydrALAZINE INJ 20 MG/ML VIAL IVP PRN (08:48)
[2017-05-18] MEDS ORDERED: hydrALAZINE INJ 20 MG/ML VIAL ONE (08:59)
[2017-05-18 10:04] VITALS: BP 181/75
== END 2017-05-18 09:25 | disposition short-term general hospital (02) | DRG 560 ==
LOC: ED 12:23 → MS2 17:10
PROVIDERS: ADMIT Nurse Practitioner Gerontology; ATTEND Nurse Practitioner Gerontology
DX: T84.53XA Infection and inflammatory reaction due to internal right knee prosthesis, initial encounter (principal); B95.5 Unspecified streptococcus as the cause of diseases classified elsewhere; Z96.651 Presence of right artificial knee joint; L03.115 Cellulitis of right lower limb; L97.819 Non-pressure chronic ulcer of other part of right lower leg with unspecified severity; B95.1 Streptococcus, group B, as the cause of diseases classified elsewhere; B95.61 Methicillin susceptible Staphylococcus aureus infection as the cause of diseases classified elsewhere; Y83.1 Surgical operation with implant of artificial internal device as the cause of abnormal reaction of the patient, or of later complication, without mention of misadventure at the time of the procedure; I87.2 Venous insufficiency (chronic) (peripheral); I10 Essential (primary) hypertension; K21.9 Gastro-esophageal reflux disease without esophagitis; G43.909 Migraine, unspecified, not intractable, without status migrainosus
CPT/HCPCS: 36415; 80048; 80053; 83605; 83735; 85025; 87040; 87070; 87205; 87493; 89051; 89060; 96365; 96366; 96367; 96368; 99283; 99284

== ENCOUNTER 2017-05-18 09:32 | Outpatient (CLI) | payer MEDICARE, OTHER | END 2017-05-18 09:33 | disposition short-term general hospital (02) | LOC: EMS 09:32 | PROVIDERS: ATTEND Surgery | DX: L03.115 Cellulitis of right lower limb (principal); Z96.651 Presence of right artificial knee joint | CPT/HCPCS: A0425; A0428 ==

== ENCOUNTER 2017-07-27 08:00 | Outpatient (CLI) | payer MEDICARE, OTHER | END 2017-07-27 23:59 | disposition home or self-care (01) | LOC: LAB.R 08:00 | PROVIDERS: ATTEND Internal Medicine Infectious Disease | DX: R19.7 Diarrhea, unspecified (principal) | CPT/HCPCS: 87493 ==

== ENCOUNTER 2017-08-18 06:08 | Outpatient (CLI) | payer MEDICARE, OTHER | END 2017-08-18 06:09 | disposition EMS.NT | LOC: EMS 06:08 | PROVIDERS: ATTEND Surgery | DX: Z03.89 Encounter for observation for other suspected diseases and conditions ruled out (principal); W18.39XA Other fall on same level, initial encounter; Y93.01 Activity, walking, marching and hiking; Y92.002 Bathroom of unspecified non-institutional (private) residence as the place of occurrence of the external cause ==

== ENCOUNTER 2017-08-18 08:43 | Outpatient (CLI) | payer MEDICARE, OTHER | END 2017-08-18 08:44 | disposition critical access hospital (66) | LOC: EMS 08:43 | PROVIDERS: ATTEND Surgery | DX: R53.1 Weakness (principal); R11.2 Nausea with vomiting, unspecified; R19.7 Diarrhea, unspecified; S09.90XA Unspecified injury of head, initial encounter; W18.30XA Fall on same level, unspecified, initial encounter; W22.8XXA Striking against or struck by other objects, initial encounter; Y92.002 Bathroom of unspecified non-institutional (private) residence as the place of occurrence of the external cause | CPT/HCPCS: A0425; A0429 ==

== ENCOUNTER 2017-08-18 09:11 | Inpatient (IN) | payer MEDICARE, OTHER ==
[2017-08-18] MEDS ORDERED: ACETAMINOPHEN 325 MG TABLET PO STA (09:19)
--- NOTE | 2017-08-18 09:22 | ED Physician Documentation ---
History of Present Illness - Stated complaint Stated Complaint: GLF - Chief complaint Chief Complaint: General - Additonal information Additional information: 82 female just released from [facility] 08[facility]16 after prosthetic knee infection wash out dc dx infected prothetic knee and c-diff (dx by stool cx and txed with flagyl for 10 days) dc on keflex and probiotics ws not having diarrhea until today - then TNTC, no blood felt weak and dizzy with standing up and fell several times hit her head on shower and has large L frontal hematoma and a MONCADA, no LOC mild neck pain no numbness or weakness no CP no SOA cough no NV no abd pain L knee bruised and swollen R knee pain as well (has been addressed by ortho and being txed) Review of Systems Constitutional: denies: Fever Cardiac: denies: Chest pain / pressure Respiratory: denies: Dyspnea, Cough GI: reports: Diarrhea. denies: Vomiting Skin: denies: Rash Musculoskeletal: reports: Neck pain, Joint pain Neurologic: reports: Generalized weakness, Headache, Head injury. 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 HEENT: Tonsil/Adenoidectomy - Present Medications Home Medications: Ambulatory Orders Medication Instructions Recorded Confirmed Fexofenadine HCl 180 mg PO DAILY 02/22/16 05/16/17 Losartan Potassium [Losartan 100 mg PO DAILY 02/22/16 05/15/17 Potassium] Cephalexin [Keflex] 500 mg TID 08/18/17 08/18/17 Pantoprazole [Protonix] 40 mg DAILY 08/18/17 08/18/17 Vancomycin [Vancocin] 125 mg PO QID 10 Days #39 capsule 08/18/17 traZODone [Desyrel] 50 mg DAILY 08/18/17 08/18/17 - Allergies Allergies/Adverse Reactions: Allergies Allergy/AdvReac Type Severity Reaction Status Date / Time naproxen AdvReac Unknown Verified 08/18/17 09:18 - Social History Does the pt smoke?: No Smoking Status: Former smoker Does the pt drink ETOH?: Yes Does the pt have substance abuse?: No - Immunizations Immunizations are current?: Yes - POLST Patient has POLST: No POLST Status: Full Code (with CPR but no incubation.) PD ED PE NORMAL - Vitals Vital signs reviewed: Yes - HEENT HEENT: PERRL. No: Atraumatic (large L frontal hematoma) - Neck Neck: No: No bony TTP (+ mild diffuse TTP) - Cardiac Cardiac: RRR - Respiratory Respiratory: No respiratory distress, Clear bilaterally - Abdomen Abdomen: Soft, Non tender - Derm Derm: Normal color - Extremities Extremities: Other (R knee swollen, surgical scar, this is knee pt just had washed out, L knee with prepatellar bruise and swelling, full ROM, MSV intact, both hips NT and full ROM, abrasion to palm L hand but no sig wrist or hand TTP or deformity) - Neuro Neuro: Alert and oriented X 3, top hat body maker 2-12 intact, No motor deficit, No sensory deficit, Normal speech Eye Opening: Spontaneous Motor: Obeys Commands Verbal: Oriented GCS Score: 15 Results - Vitals Vitals: Vital Signs - 24 hr 08/18/17 08/18/17 08/18/17 09:15 11:23 13:35 Temperature 37.3 C Heart Rate 99 85 83 Respiratory 16 16 18 Rate Blood Pressure 161/136 H 159/61 H 164/58 H O2 Saturation 96 97 99 Oxygen O2 Source Room air - Labs Labs: Laboratory Tests 08/18/17 08/18/17 08/18/17 09:30 09:30 11:22 WBC 17.7 H RBC 3.86 L Hgb 11.3 L Hct 34.1 L MCV 88.3 MCH 29.4 MCHC 33.3 RDW 14.9 Plt Count 307 MPV 6.5 L Neut # 15.8 H Lymph # 0.5 L Teller # 1.3 H Eos # 0.0 Baso # 0.0 Absolute Nucleated RBC 0.00 Nucleated RBC % 0.0 Sodium 133 L Potassium 3.0 L Chloride 101 Carbon Dioxide 23 Anion Gap 9.0 BUN 11 Creatinine 0.8 Estimated GFR (MDRD) 69 L Glucose 179 H Calcium 8.6 Urine Color LT. YELLOW Urine Clarity CLEAR Urine pH 5.5 Ur Specific [place] <=1.005 Urine Protein NEGATIVE Urine Glucose (UA) NEGATIVE Urine Ketones NEGATIVE Urine Occult Blood TRACE-LYSE Urine Nitrite NEGATIVE Urine Bilirubin NEGATIVE Urine Urobilinogen 0.2 (NORMAL) Ur Leukocyte Esterase NEGATIVE Ur Microscopic Review NOT INDICATED Urine Culture Comments NOT INDICATED - Rads (name of study) C spine Radiology: See rad report (no fx or sublux) knee L Radiology: See rad report CTH Radiology: See rad report (large ST cephalohematoma, no ICH no skull fx, fluid in maxillary sinus could be blood) PD MEDICAL DECISION MAKING - ED course ED course: first recurrence c diff after intial tx with flagyl - tx is vanco PO 125 QID X 10 days CTH neg CS and knee xrays neg labs OK except WBC elev as expected and low K which was repleted gave IVF and planned to dc if feeling better once hydrated, even started prepping dc isntructions but has had diarrhea fluid losses and despote IVF is too weak to safely stand and ambulate and she and her do not feel safe going home so will need admit spoke to hospitalist at 1530 and he will admit inpt Departure - Departure Disposition: 66 [facility] DC/Xfer Clinical Impression: C. difficile colitis, Hypokalemia, Dehydration, Weakness Closed head injury Qualifiers: Encounter type: initial encounter Qualified Code(s): S09.90XA - Unspecified injury of head, initial encounter Fall Qualifiers: Encounter type: initial encounter Qualified Code(s): W19.XXXA - Unspecified fall, initial encounter Instructions: Diet High Potassium Dc, Clostridium Difficile Infec Prescriptions: Vancomycin [Vancocin] 125 mg PO QID 10 Days #39 capsule Comments: The xrays of your knee and spine showed no fracture The CT of you head showed soft tissue swelling and some fluid or perhaps small amount of blood in your maxillary sinuses - but no skull fracture or brain bleeding It looks like your c -diff has come back so i have prescribed you an antibiotic call vancomycin - it may be very hard to clear this infection while you are on antibiotics for your knee so please stay in close communication with your clinical operations specialist and do not take the keflex any longer than he/she feels absolutely necessary. I think you were weak from dehydration secondary to your diarrhea today and that may be why you fell. Your labs looked fine except for a high white blood cell count which is not surprising since you have two infections going on, and a low potassium level which we have repleted We gave you IV fluids in the ER
[2017-08-18 09:35] LABS: BASOPHILS % (AUTO) 0.2 %; HGB - HEMOGLOBIN 11.3 g/dL (12.0-16.0); LYMPHOCYTES # (AUTO) 0.5 10^3/uL (1.5-3.5); LYMPHOCYTES % (AUTO) 3.1 %; MEAN CORPUSCULAR HEMOGLOBIN 29.4 pg (27.0-31.0); MEAN CORPUSCULAR HGB CONC 33.3 g/dL (32.0-36.0); MEAN CORPUSCULAR VOLUME 88.3 fL (81.0-99.0); MEAN PLATELET VOLUME 6.5 fL (7.9-10.8); MONOCYTES # (AUTO) 1.3 10^3/uL (0.0-1.0); MONOCYTES % (AUTO) 7.6 %; NEUTROPHILS # (AUTO) 15.8 10^3/uL (1.5-6.6); NEUTROPHILS % (AUTO) 89.1 %; PLT - PLATELET COUNT 307 10^3/uL (130-450); RED BLOOD COUNT 3.86 10^6/uL (4.20-5.40); RED CELL DISTRIBUTION WIDTH 14.9 % (12.0-15.0); WHITE BLOOD COUNT 17.7 x10^3/uL (4.8-10.8)
[2017-08-18 09:49] LABS: CALCIUM 8.6 mg/dL (8.5-10.3); CREATININE 0.8 mg/dL (0.4-1.0)
[2017-08-18] MEDS ORDERED: BACITRACIN OINT TOP ONE (09:59)
[2017-08-18] MEDS ORDERED: POTASSIUM CHLOR 10 MEQ/100 ML 10 MEQ/100 ML BAG IV ONE (10:18)
[2017-08-18] MEDS ORDERED: POTASSIUM CHLORIDE 20 MEQ TABLET PO STA (10:18)
[2017-08-18] MEDS ORDERED: VANCOMYCIN 125 MG CAPSULE PO STA (10:19)
--- NOTE | 2017-08-18 11:06 | XRAY Preliminary Report ---
Exam: XR CERVICAL SPINE 2 VIEW IMPRESSION: 1. No fracture or subluxation. 2. Mild degenerative disk disease C4-C5 through C6-C7. RADIA SITE ID: [id number]
--- NOTE | 2017-08-18 11:07 | XRAY Report ---
EXAM: CERVICAL SPINE RADIOGRAPHY EXAM DATE: 08/18/2017 10:58 AM. CLINICAL HISTORY: Fall, neck pain. COMPARISONS: None. TECHNIQUE: 3 views. FINDINGS: Alignment: Normal. No spondylolisthesis or scoliosis. Bones: The cervical vertebral bodies and posterior elements are well visualized from the skull base t hrough C7-T1. No fractures or bone lesions. Disks: Mild disk height loss consistent with degenerative disk disease at C4-C5, C5-C6, C6-C7. Facets: Minimal multilevel hypertrophy on the right. Soft Tissues: Normal. No prevertebral soft tissue swelling. The visualized lung apices are clear. IMPRESSION: 1. No fracture or subluxation. 2. Mild degenerative disk disease C4-C5 through C6-C7. [facility] Referring Provider Line: [phone] SITE ID: [id number]
--- NOTE | 2017-08-18 11:09 | XRAY Report ---
EXAM: LEFT KNEE RADIOGRAPHY EXAM DATE: 08/18/2017 10:58 AM. CLINICAL HISTORY: Fall L knee injury. COMPARISON: None. TECHNIQUE: 4 views. FINDINGS: Left total knee arthroplasty shows grossly-anatomic alignment. No fracture or evidence of l oosening. No joint effusion. Mild subcutaneous soft tissue swelling over the anteromedial knee. IMPRESSION: Left total knee arthroplasty showing grossly anatomic alignment. No fracture or joint eff usion. [facility] Referring Provider Line: [phone] SITE ID: [id number]
--- NOTE | 2017-08-18 11:09 | XRAY Preliminary Report ---
Exam: XR KNEE 4 VIEW LT IMPRESSION: Left total knee arthroplasty showing grossly anatomic alignment. No fracture or joint eff usion. [facility] SITE ID: [id number]
[2017-08-18 11:31] LABS: BILIRUBIN,URINE NEGATIVE (NEGATIVE); GLUCOSE, URINE (UA) NEGATIVE (NEGATIVE); KETONES,URINE (UA) NEGATIVE (NEGATIVE); LEUKOCYTE ESTERASE, URINE NEGATIVE (NEGATIVE); NITRITE,URINE NEGATIVE (NEGATIVE); OCCULT BLOOD,URINE TRACE-LYSE (NEGATIVE); PH,URINE 5.5 PH (5.0-7.5); PROTEIN,URINE NEGATIVE (NEGATIVE); UROBILINOGEN,URINE 0.2 (NORMAL) E.U./dL (NORMAL)
[2017-08-18 11:34] LABS: CLARITY,URINE CLEAR (CLEAR)
[2017-08-18] MEDS ORDERED: SODIUM CHLORIDE 0.9% 1,000 ML IV ONE (13:12)
--- NOTE | 2017-08-18 14:01 | CT Preliminary Report ---
Exam: CT HEAD W/O IMPRESSION: 1. Prominent superficial soft tissue swelling with cephalhematoma. 2. Maxillary sinus air-fluid levels, acute sinusitis versus bleeding into the sinuses. 3. Generalized age-related cortical atrophic changes without evidence of acute intracranial abnormali ty. [facility] SITE ID: [id number]
--- NOTE | 2017-08-18 14:01 | CT Report ---
EXAM: CT HEAD EXAM DATE: 08/18/2017 01:51 PM. CLINICAL HISTORY: Fall HI no LOC large frontal hematoma. COMPARISON: 02/22/2016. TECHNIQUE: Multiaxial CT images were obtained from the foramen magnum to the vertex. Reformats: Coron al. IV contrast: None. In accordance with CT protocol optimization, one or more of the following dose reduction techniques w ere utilized for this exam: automated exposure control, adjustment of mA and/or KV based on patient s ize, or use of iterative reconstructive technique. FINDINGS: Parenchyma: No intraparenchymal hemorrhage. No evidence of mass, midline shift, or CT findings of acu te infarction. Putnam-white differentiation is distinct. Diffuse chronic microangiopathic white matter changes. Extraaxial Spaces: Normal for age. Small calcified meningioma over right vertex. No subdural or epidu ral collections. Ventricles: The ventricles and cortical sulci are enlarged, consistent with age-related tissue loss. Sinuses and orbits: Air-fluid levels in both maxillary sinuses with mild mucosal thickening and 2.2 c m mucous retention cyst in base of right maxillary sinus. Otherwise clear. Bones: Unremarkable. Other: Prominent soft tissue swelling over left forehead with cephalhematoma measuring about 18 mm in depth and 64 mm in diameter. IMPRESSION: 1. Prominent superficial soft tissue swelling with cephalhematoma. 2. Maxillary sinus air-fluid levels, acute sinusitis versus bleeding into the sinuses. 3. Generalized age-related cortical atrophic changes without evidence of acute intracranial abnormali ty. [facility] Referring Provider Line: [phone] SITE ID: [id number]
[2017-08-18] MEDS ORDERED: PROMETHAZINE 25 MG/1 ML VIAL IM PRN (15:26)
[2017-08-18] MEDS ORDERED: oxyCODONE 5 MG TABLET PO PRN (15:26)
[2017-08-18] MEDS ORDERED: SODIUM CHLORIDE FLUSH 0.9% 10 ML SYRINGE IVP PRN (15:26)
[2017-08-18] MEDS ORDERED: PROCHLORPERAZINE 10 MG/2 ML VIAL IVP PRN (15:26)
[2017-08-18] MEDS ORDERED: TEMAZEPAM 15 MG CAPSULE PO PRN (15:26)
[2017-08-18] MEDS ORDERED: ONDANSETRON 4 MG/2 ML VIAL IVP PRN (15:26)
[2017-08-18] MEDS: ACETAMINOPHEN 325 MG TABLET PO PRN (17:11)
[2017-08-18] MEDS: SODIUM CHLORIDE FLUSH 0.9% 10 ML SYRINGE IVP SCH (17:11)
[2017-08-18] MEDS: VANCOMYCIN 125 MG CAPSULE PO SCH ×3 (17:11→21:00)
[2017-08-18] MEDS: NS W/20 MEQ KCL 1,000 ML IV SCH (17:11)
--- NOTE | 2017-08-18 19:31 | HISTORY & PHYSICAL EXAMINATION ---
Chief Complaint - Chief Complaint Chief Complaint: Diarrhea History of Present Illness - Admitted From Admitted From:: Emergency department - History Obtained From Records Reviewed: Yes History obtained from: Patient Exam Limitations: None - History of Present Illness HPI Comment/Other: Patient is an 82-year-old female with a past medical history significant for hypertension and osteoarthritis with bilateral knee replacements who presented to the emergency department with a chief complaint of diarrhea. About 3 months ago the patient had a hospitalization here at [facility] where she was found to have an infected right knee joint. She was sent to [facility] where she had an I&D performed and was placed on IV antibiotics. The patient received 7 weeks of IV antibiotics to complete treatment for her septic joint. After completing treatment the patient developed diarrhea which was diffuse and she was tested for C. difficile and the test was positive. The patient was placed on oral Flagyl which she took for 10 days. She completed treatment 1 week ago and had had complete resolution of her symptoms. She states that today she began having abdominal cramping and then began having diffuse diarrhea. She states the diarrhea was very similar to when she had C. difficile. It was foul-smelling and loose. She states that she had multiple bouts of diarrhea and then when she got off the toilet she states that she felt lightheaded and collapsed to the floor. She hit her left knee on the floor but did not lose consciousness. She states that she was very weak and could not get up and therefore came into the hospital. The patient denies any headaches, blurred vision, runny nose, sore throat, nasal congestion, difficulty swallowing, fevers, chills, chest pain, shortness of air, orthopnea, PND, increased lower extremity swelling, palpitations, cough , nausea, vomiting, urinary urgency, urinary frequency, dysuria, joint pain, muscle aches, back pain, neck stiffness, changes in her appetite, recent unintentional weight loss, skin changes, hair loss, or any focal neurologic deficits. On presentation to the emergency department the patient was afebrile but she was tachycardic hypertensive and was not in any respiratory distress. The patient's initial lab work showed a leukocytosis of 17.7 and a potassium of 3.0. Patient was extremely weak and continuing to have diarrhea. Given that patient has severe c diff with reoccurrence and appears very dehydrated. She will be admitted for treatment of c diff, electrolyte replacement and hydration. History - Past Medical History Cardiovascular: reports: Hypertension Respiratory: reports: None Neuro: reports: Headache/migraine Endocrine/Autoimmune: reports: None GI: reports: GERD, Hiatal hernia : reports: Incontinence HEENT: reports: Other Psych: reports: None Musculoskeletal: reports: Osteopenia Derm: reports: None MRSA Hx?: No Other Past Medical History: Chronic Sinusitis - Past Surgical History Ortho: reports: Knee replacement /[employer]IA [employer]: reports: Hysterectomy HEENT: reports: Tonsil/Adenoidectomy - Family & Social History Family History Comment/Other: pt with her is living at [facility], no child. Social History Notes: pt denies cigarette smoking, alcoholic or drug abuse. - Substance History Use: Uses substance without health or social issues: NONE - POLST Patient has POLST: No POLST Status: Full Code (with CPR but no incubation.) Meds/Allgy - Home Medications Home Medications: Ambulatory Orders Medication Instructions Recorded Confirmed Losartan Potassium [Losartan 100 mg PO DAILY 02/22/16 08/18/17 Potassium] Amlodipine Besylate [Amlodipine 10 mg PO DAILY 08/18/17 08/18/17 Besylate] Metoprolol Tartrate [Metoprolol 25 mg PO BID 08/18/17 08/18/17 Tartrate] Pantoprazole [Protonix] 40 mg DAILY 08/18/17 08/18/17 traZODone [Desyrel] 25 mg PO QPM PRN 08/18/17 08/18/17 - Allergies Allergies/Adverse Reactions: Allergies Allergy/AdvReac Type Severity Reaction Status Date / Time naproxen AdvReac Unknown Verified 08/18/17 09:18 Review of Systems - Other Findings Other Findings: A comprehensive review of systems was performed the pertinent positives and negatives are stated above in the HPI and the remainder of the review of systems is negative. Exam - Vital Signs Reviewed Vital Signs: Yes Vital Signs: Vital Signs x48h Temp Pulse Resp BP Pulse Ox 08/18/17 16:42 37.1 C 99 16 181/62 H 94 - Physical Exam General Appearance: positive: Alert, Mild distress (Appears sick and very dehydrated) Eyes Bilateral: positive: Normal inspection, PERRL, EOMI, No lid inflammation, Conjunctivae nml, No scleral icterus ENT: positive: ENT inspection nml, Pharynx nml, Dry mucous membranes. negative : Purulent nasal drainage, Pharyngeal erythema, Oral lesions Neck: positive: Nml inspection, Thyroid nml, No JVD, Trachea midline. negative : Thyromegaly, Lymphadenopathy (R), Lymphadenopathy (L), Carotid bruit, Tracheal deviation Respiratory: positive: Chest non-tender, No respiratory distress, Breath sounds nml. negative: Wheezes, Rales, Rhonchi Cardiovascular: positive: Regular rate & rhythm, No murmur, No gallop Peripheral Pulses: positive: 2+ Abdomen: positive: Non-tender, No organomegaly, Nml bowel sounds, No distention. negative: Guarding, Rebound, Hepatomegaly Back: positive: Nml inspection. negative: CVA tenderness (R), CVA tenderness (L ) Skin: positive: Color nml, No rash, Dry. negative: Cyanosis, Diaphoresis, Pallor Extremities: positive: Non-tender, Full ROM, Nml appearance, No pedal edema Neurologic/Psychiatric: positive: Oriented x3, CN's nml (2-12), Motor nml, Sensation nml, Mood/affect nml Conclusion/Plan - Problem List (1) C. difficile diarrhea Conclusion/Plan: Patient initially was diagnosed with c diff on 07/27/2017 after receiving 7 weeks of IV antibiotics for a septic joint infection She completed treatment with flagyl 1 week ago and was symptom free until today She has had several bouts of diarrhea and abdominal cramping today She collapsed to the floor at home and could not get up secondary to weakness from dehydration throughout the day On presentation to the ER she has WBC of 17.7, appears dry and has K of 3.0 She was too weak to be able to stand up in the ER Admitted for reoccurrence of c diff Plan: PO vancomycin 125 mg QID will need a 21 day taper IVFs Electrolyte replacement If patient continues to be weak she will need to be seen by PT (2) Hypokalemia Conclusion/Plan: Secondary to diarrhea K is 3.0 on presentation Replace K Treat c diff Monitor K (3) Hyponatremia Conclusion/Plan: Appears hypovolemic likely from diarrhea Na 133 Give IVF Monitor Na (4) HTN (hypertension) Conclusion/Plan: BP elevated on presentation Restart BP meds Monitor BP Qualifiers: Hypertension type: essential hypertension Qualified Code(s): I10 - Essential (primary) hypertension (5) History of knee replacement Conclusion/Plan: Right knee was infected and patient received 7 weeks of IV abx knee appears normal Pain is controlled Tylenol prn Qualifiers: Laterality: bilateral Qualified Code(s): Z96.653 - Presence of artificial knee joint, bilateral - Lab Results Lab results reviewed: Yes Fish Bones: 08/19/17 05:54 08/19/17 05:54 Other Lab Results: Laboratory Results WBC 17.7 x10^3/uL (4.8-10.8) H 08/18/17 09:30 RBC 3.86 10^6/uL (4.20-5.40) L 08/18/17 09:30 Hgb 11.3 g/dL (12.0-16.0) L 08/18/17 09:30 Hct 34.1 % (37.0-47.0) L 08/18/17 09:30 MCV 88.3 fL (81.0-99.0) 08/18/17 09:30 MCH 29.4 pg (27.0-31.0) 08/18/17 09:30 MCHC 33.3 g/dL (32.0-36.0) 08/18/17 09:30 RDW 14.9 % (12.0-15.0) 08/18/17 09:30 Plt Count 307 10^3/uL (130-450) 08/18/17 09:30 MPV 6.5 fL (7.9-10.8) L 08/18/17 09:30 Neut # 15.8 10^3/uL (1.5-6.6) H 08/18/17 09:30 Lymph # 0.5 10^3/uL (1.5-3.5) L 08/18/17 09:30 [place] # 1.3 10^3/uL (0.0-1.0) H 08/18/17 09:30 Eos # 0.0 10^3/uL (0.0-0.7) 08/18/17 09:30 Baso # 0.0 10^3/uL (0.0-0.1) 08/18/17 09:30 Absolute Nucleated RBC 0.00 x10^3/uL 08/18/17 09:30 Nucleated RBC % 0.0 /100WBC 08/18/17 09:30 Sodium 133 mmol/L (135-145) L 08/18/17 09:30 Potassium 3.0 mmol/L (3.5-5.0) L 08/18/17 09:30 Chloride 101 mmol/L (101-111) 08/18/17 09:30 Carbon Dioxide 23 mmol/L (21-32) 08/18/17 09:30 Anion Gap 9.0 (6-13) 08/18/17 09:30 BUN 11 mg/dL (6-20) 08/18/17 09:30 Creatinine 0.8 mg/dL (0.4-1.0) 08/18/17 09:30 Estimated GFR (MDRD) 69 (>89) L 08/18/17 09:30 Glucose 179 mg/dL (70-100) H 08/18/17 09:30 Calcium 8.6 mg/dL (8.5-10.3) 08/18/17 09:30 Urine Color LT. YELLOW 08/18/17 11:22 Urine Clarity CLEAR (CLEAR) 08/18/17 11:22 Urine pH 5.5 PH (5.0-7.5) 08/18/17 11:22 Ur Specific [place] <=1.005 (1.002-1.030) 08/18/17 11:22 Urine Protein NEGATIVE mg/dL (NEGATIVE) 08/18/17 11:22 Urine Glucose (UA) NEGATIVE mg/dL (NEGATIVE) 08/18/17 11:22 Urine Ketones NEGATIVE mg/dL (NEGATIVE) 08/18/17 11:22 Urine Occult Blood TRACE-LYSE (NEGATIVE) 08/18/17 11:22 Urine Nitrite NEGATIVE (NEGATIVE) 08/18/17 11:22 Urine Bilirubin NEGATIVE (NEGATIVE) 08/18/17 11:22 Urine Urobilinogen 0.2 (NORMAL) E.U./dL (NORMAL) 08/18/17 11:22 Ur Leukocyte Esterase NEGATIVE (NEGATIVE) 08/18/17 11:22 Ur Microscopic Review NOT INDICATED 08/18/17 11:22 Urine Culture Comments NOT INDICATED 08/18/17 11:22 Core Measures - Anticipated LOS I expect patient to be DC'd or transferred within 96 hours.: Yes - DVT/VTE - Prophylaxis VTE/DVT Prophylaxis med ordered at admit?: Yes
[2017-08-18] MEDS: traMADol 50 MG TABLET PO SCH (20:05)
[2017-08-18] MEDS: METOPROLOL TARTRATE 25 MG TABLET PO SCH (21:01)
[2017-08-19] MEDS: SODIUM CHLORIDE FLUSH 0.9% 10 ML SYRINGE IVP SCH ×3 (00:57→20:20)
[2017-08-19] MEDS: NS W/20 MEQ KCL 1,000 ML IV SCH ×3 (01:23→20:20)
[2017-08-19] MEDS: ACETAMINOPHEN 325 MG TABLET PO PRN (04:45)
[2017-08-19 06:10] LABS: BASOPHILS % (AUTO) 0.4 %; EOSINOPHILS % (AUTO) 0.3 %; HGB - HEMOGLOBIN 10.1 g/dL (12.0-16.0); LYMPHOCYTES # (AUTO) 1.7 10^3/uL (1.5-3.5); LYMPHOCYTES % (AUTO) 12.5 %; MEAN CORPUSCULAR HEMOGLOBIN 29.2 pg (27.0-31.0); MEAN CORPUSCULAR HGB CONC 32.5 g/dL (32.0-36.0); MEAN CORPUSCULAR VOLUME 89.9 fL (81.0-99.0); MONOCYTES # (AUTO) 1.1 10^3/uL (0.0-1.0); NEUTROPHILS % (AUTO) 78.8 %; RED BLOOD COUNT 3.45 10^6/uL (4.20-5.40); RED CELL DISTRIBUTION WIDTH 15.2 % (12.0-15.0)
[2017-08-19 07:01] LABS: ALBUMIN/GLOBULIN RATIO 1.1 (1.0-2.2); BILIRUBIN,TOTAL 0.4 mg/dL (0.2-1.0); CALCIUM 8.4 mg/dL (8.5-10.3); CREATININE 0.7 mg/dL (0.4-1.0); MAGNESIUM 1.8 mg/dL (1.7-2.8); PHOSPHORUS 2.2 mg/dL (2.5-4.6); TOTAL PROTEIN 5.8 g/dL (6.7-8.2)
[2017-08-19 07:08] LABS: PLATELET ESTIMATE, MANUAL NORMAL (130-450,000) (NORMAL); PLATELET MORPHOLOGY PLATELET CLUMPING (NORMAL); RBC MORPHOLOGY (MULTIPLE) NORMAL APPEARANCE (NORMAL)
[2017-08-19] MEDS: amLODIPine 5 MG TABLET PO SCH (09:04)
[2017-08-19] MEDS: ENOXAPARIN 40 MG/0.4 ML SYRINGE SUBQ SCH (09:05)
[2017-08-19] MEDS: POLYETHYLENE GLYCOL 3350 17 GM PACKET PO SCH (09:05)
[2017-08-19] MEDS: METOPROLOL TARTRATE 25 MG TABLET PO SCH ×2 (09:06→21:51)
[2017-08-19] MEDS: FAMOTIDINE 20 MG TABLET PO SCH (09:06)
[2017-08-19] MEDS: traMADol 50 MG TABLET PO SCH ×2 (09:06→21:52)
[2017-08-19] MEDS: LOSARTAN 50 MG TABLET PO SCH (09:06)
[2017-08-19] MEDS: POTASSIUM CHLORIDE 20 MEQ TABLET PO SCH (09:06)
[2017-08-19] MEDS: VANCOMYCIN 125 MG CAPSULE PO SCH ×4 (09:06→21:52)
[2017-08-19] MEDS: NEUTRA-PHOS 250 MG TABLET PO SCH ×3 (09:06→16:31)
--- NOTE | 2017-08-19 16:26 | PROVIDER PROGRESS NOTE ---
Assessment/Plan - Problem List (1) C. difficile diarrhea Assessment/Plan: Patient initially was diagnosed with c diff on 07/27/2017 after receiving 7 weeks of IV antibiotics for a septic joint infection and currently on chronic PO keflex as she still has prosthetic joint She completed treatment with PO flagyl 1 week ago and was symptom free until today She has had several bouts of diarrhea and abdominal cramping She collapsed to the floor at home and could not get up secondary to weakness from dehydration throughout the day On presentation to the ER she has WBC of 17.7, appeared dry and had K of 3.0 She was too weak to be able to stand up in the ER Admitted for reoccurrence of c diff Plan: Started on PO vancomycin 125 mg QID spoke with ID from [facility] who was not convinced that this was a reoccurrence of c diff or residual diarrhea after C diff treatment especially given that C diff PCR was negative. He advised that patient be treated with PO vanco x 14 days and continue on PO kelflex for joint infection IVFs Electrolyte replacement Patients strength is improving but still pretty weak WBC improved to 14.0 (2) Hypokalemia Conclusion/Plan: Secondary to diarrhea K is 3.0 on presentation K improved to 3.3 Continue to replace K and treat c diff (3) Hyponatremia Conclusion/Plan: Appears hypovolemic likely from diarrhea Na 133 at presentation Resolved with IVFs (4) HTN (hypertension) Conclusion/Plan: BP elevated on presentation Restarted BP meds Still high Monitor BP and titrate meds Qualifiers: Hypertension type: essential hypertension Qualified Code(s): I10 - Essential (primary) hypertension (5) History of knee replacement Conclusion/Plan: Right knee was infected and patient received 7 weeks of IV abx still has prosthetic joint so on chronic keflex Spoke with ID from [facility] who recommended restarting Keflex today knee appears normal Pain is controlled Tylenol prn Qualifiers: Laterality: bilateral Qualified Code(s): Z96.653 - Presence of artificial knee joint, bilateral - Current Meds Current Meds: Current Medications Generic Name Dose Route Start Last Admin Trade Name Freq PRN Reason Stop Dose Admin Acetaminophen 650 mg 08/18/17 15:26 08/19/17 04:45 Tylenol PO 650 mg Q4HR PRN Administration Pain 1 to 4 Amlodipine Besylate 10 mg 08/19/17 09:00 08/19/17 09:04 Norvasc PO 10 mg DAILY JONO Administration Enoxaparin Sodium 40 mg 08/19/17 09:00 08/19/17 09:05 Lovenox SUBQ 40 mg DAILY JONO Administration Famotidine 20 mg 08/19/17 09:00 08/19/17 09:06 Pepcid PO 20 mg DAILY JONO Administration Potassium Chloride/Sodium Chloride 1,000 mls @ 125 mls/hr 08/18/17 16:00 07/04 09:04 Normal Saline 0.9% W/20 Meq Kcl IV Infused .Q8H JONO Infusion Losartan Potassium 100 mg 08/19/17 09:00 08/19/17 09:06 Cozaar PO 100 mg DAILY JONO Administration Metoprolol Tartrate 25 mg 08/18/17 21:00 08/19/17 09:06 Lopressor PO 25 mg BID JONO Administration Polyethylene Glycol 17 gm 08/19/17 09:00 08/19/17 09:05 Miralax PO Not Given DAILY JONO Potassium Chloride 40 meq 08/19/17 09:00 08/19/17 09:06 K-Dur PO 40 meq DAILYWM JONO Administration Sodium Chloride 10 ml 08/18/17 17:00 08/19/17 09:06 Normal Saline Flush 0.9% IVP Not Given 0100,0900,1700 JONO Sodium Phosphate 250 mg 08/19/17 09:00 08/19/17 13:16 K-Phos Neutral PO 250 mg TIDWM JONO Administration Tramadol HCl 50 mg 08/18/17 21:00 08/19/17 09:06 Ultram PO Not Given BID JONO Vancomycin HCl 125 mg 08/18/17 16:00 08/19/17 13:16 Vancocin PO 125 mg QID JONO Administration - Lab Result Lab results reviewed: Yes Fish Bone Diagrams: 08/19/17 05:54 08/19/17 05:54 - Diagnostic Imaging Results Diagnostic Imaging Results: Final report reviewed - Additional Planning Condition/Complexity: Improved My Orders: My Active Orders 08/18/17 21:00 Metoprolol Tartrate [Lopressor] 25 mg PO BID traMADol [Ultram] 50 mg PO BID 08/19/17 09:00 Losartan [Cozaar] 100 mg PO DAILY Neutra-Phos [K-Phos Neutral] 250 mg PO TIDWM Potassium Chloride [K-Dur] 40 meq PO DAILYWM amLODIPine [Norvasc] 10 mg PO DAILY 08/19/17 15:00 Saccharomyces Boulardii [Florastor] 250 mg PO BIDWM cephALEXin [Keflex] 500 mg PO Q8H Plan Discussed with:: Patient, Spouse Time Spent: 31-60 minutes Subjective - Subjective Patient Reports: Feeling Better, Diarrhea (Improving), Other (No fevers, abdominal cramping has resolved. She is still weak but feeling stronger.) Nursing Reports: No Complaints Objective Vital Signs: Vital Signs - 24 hr 08/18/17 08/18/17 08/18/17 16:42 20:21 21:01 Temperature 37.1 C Heart Rate [ 99 87 Radial] Respiratory 16 Rate Blood Pressure 166/80 H Blood Pressure 181/62 H 166/80 H [Right Brachial artery] O2 Saturation 94 08/18/17 08/19/17 08/19/17 23:45 08:00 09:06 Temperature 36.4 C L 36.9 C Heart Rate [ 78 85 Radial] Respiratory 16 14 Rate Blood Pressure 155/70 H Blood Pressure 164/58 H 150/70 H [Right Brachial artery] O2 Saturation 95 97 Oxygen O2 Source Room air I&O (Last 24 Hrs): Intake and Output Totals x24h 08/17/17 08/18/17 08/19/17 23:59 23:59 23:59 Intake Total 1800 3180 Balance 1800 3180 General: Alert, Oriented x3, Cooperative, No acute distress HEENT: Atraumatic, PERRLA, EOMI, Other (dry mucus membranes) Neck: Supple, No JVD, No thyromegaly, +2 carotid pulse wo bruit, No LAD Lymphatic: no adenopathy Neuro: Alert, Non Focal, CN 2-12 Grossly Intact, Oriented Times 3 Cardiovascular: Regular rate, Normal S1, Normal S2, No murmurs Respiratory: Chest non-tender, No respiratory distress, Breath sounds nml Abdomen: Normal bowel sounds, Soft, No tenderness, No hepatospenomegaly, No masses Extremities: No clubbing, No cyanosis, No edema, Normal pulses Skin: No rashes, No breakdown - Results Results: Laboratory Results WBC 14.0 x10^3/uL (4.8-10.8) H 08/19/17 05:54 RBC 3.45 10^6/uL (4.20-5.40) L 08/19/17 05:54 Hgb 10.1 g/dL (12.0-16.0) L 08/19/17 05:54 Hct 31.0 % (37.0-47.0) L 08/19/17 05:54 MCV 89.9 fL (81.0-99.0) 08/19/17 05:54 MCH 29.2 pg (27.0-31.0) 08/19/17 05:54 MCHC 32.5 g/dL (32.0-36.0) 08/19/17 05:54 RDW 15.2 % (12.0-15.0) H 08/19/17 05:54 Plt Count TNP 08/19/17 05:54 MPV TNP 08/19/17 05:54 Neut # 11.0 10^3/uL (1.5-6.6) H 08/19/17 05:54 Lymph # 1.7 10^3/uL (1.5-3.5) 08/19/17 05:54 [place] # 1.1 10^3/uL (0.0-1.0) H 08/19/17 05:54 Eos # 0.0 10^3/uL (0.0-0.7) 08/19/17 05:54 Baso # 0.0 10^3/uL (0.0-0.1) 08/19/17 05:54 Absolute Nucleated RBC 0.01 x10^3/uL 08/19/17 05:54 Nucleated RBC % 0.1 /100WBC 08/19/17 05:54 Manual Slide Review Indicated 08/19/17 05:54 Platelet Estimate NORMAL (130-450,000) (NORMAL) 08/19/17 05:54 Platelet Morphology PLATELET CLUMPING (NORMAL) 08/19/17 05:54 RBC Morph Micro Appear NORMAL APPEARANCE (NORMAL) 08/19/17 05:54 Sodium 140 mmol/L (135-145) 08/19/17 05:54 Potassium 3.3 mmol/L (3.5-5.0) L 08/19/17 05:54 Chloride 114 mmol/L (101-111) H 08/19/17 05:54 Carbon Dioxide 20 mmol/L (21-32) L 08/19/17 05:54 Anion Gap 6.0 (6-13) 08/19/17 05:54 BUN 6 mg/dL (6-20) 08/19/17 05:54 Creatinine 0.7 mg/dL (0.4-1.0) 08/19/17 05:54 Estimated GFR (MDRD) 81 (>89) L 08/19/17 05:54 Glucose 114 mg/dL (70-100) H 08/19/17 05:54 Lactic Acid 0.6 mmol/L (0.5-2.2) 08/19/17 05:54 Calcium 8.4 mg/dL (8.5-10.3) L 08/19/17 05:54 Phosphorus 2.2 mg/dL (2.5-4.6) L 08/19/17 05:54 Magnesium 1.8 mg/dL (1.7-2.8) 08/19/17 05:54 Total Bilirubin 0.4 mg/dL (0.2-1.0) 08/19/17 05:54 AST 16 IU/L (10-42) 08/19/17 05:54 ALT 11 IU/L (10-60) 08/19/17 05:54 Alkaline Phosphatase 41 IU/L (42-121) L 08/19/17 05:54 Total Protein 5.8 g/dL (6.7-8.2) L 08/19/17 05:54 Albumin 3.0 g/dL (3.2-5.5) L 08/19/17 05:54 Globulin 2.8 g/dL (2.1-4.2) 08/19/17 05:54 Albumin/Globulin Ratio 1.1 (1.0-2.2) 08/19/17 05:54 Urine Color LT. YELLOW 08/18/17 11:22 Urine Clarity CLEAR (CLEAR) 08/18/17 11:22 Urine pH 5.5 PH (5.0-7.5) 08/18/17 11:22 Ur Specific [place] <=1.005 (1.002-1.030) 08/18/17 11:22 Urine Protein NEGATIVE mg/dL (NEGATIVE) 08/18/17 11:22 Urine Glucose (UA) NEGATIVE mg/dL (NEGATIVE) 08/18/17 11:22 Urine Ketones NEGATIVE mg/dL (NEGATIVE) 08/18/17 11:22 Urine Occult Blood TRACE-LYSE (NEGATIVE) 08/18/17 11:22 Urine Nitrite NEGATIVE (NEGATIVE) 08/18/17 11:22 Urine Bilirubin NEGATIVE (NEGATIVE) 08/18/17 11:22 Urine Urobilinogen 0.2 (NORMAL) E.U./dL (NORMAL) 08/18/17 11:22 Ur Leukocyte Esterase NEGATIVE (NEGATIVE) 08/18/17 11:22 Ur Microscopic Review NOT INDICATED 08/18/17 11:22 Urine Culture Comments NOT INDICATED 08/18/17 11:22
[2017-08-19] MEDS: cephALEXin 250 MG CAPSULE PO SCH ×2 (16:31→21:52)
[2017-08-19] MEDS: SACCHAROMYCES BOULARDII 250 MG CAPSULE PO SCH ×2 (16:31→20:20)
[2017-08-19] MEDS: CALCIUM CARBONATE CHEW 500 MG TABLET PO SCH (22:32)
--- NOTE | 2017-08-19 23:10 | XRAY Preliminary Report ---
Exam: XR KNEE 2 VIEW RT IMPRESSION: 1. No right knee fracture or malalignment seen. 2. There is new subtle periosteal reaction involving the distal right femoral metadiaphysis of uncert ain etiology. Differential would include early infection and stress reaction/fracture. If clinical in dicated, MRI can be considered. [facility] SITE ID: [id number]
--- NOTE | 2017-08-19 23:22 | XRAY Report ---
EXAM: RIGHT KNEE RADIOGRAPHY EXAM DATE: 08/19/2017 10:24 PM. CLINICAL HISTORY: Fall days ago and knee hurts. COMPARISON: 05/15/2017. TECHNIQUE: 2 views. FINDINGS: Bones and joints: Right knee prosthesis appears unremarkable. No acute fracture or malalignment seen. Subtle new periosteal reaction over the distal femoral metadiaphysis. Soft Tissues: Normal. No soft tissue swelling. IMPRESSION: 1. No right knee fracture or malalignment seen. 2. There is new subtle periosteal reaction involving the distal right femoral metadiaphysis of uncert ain etiology. Differential would include early infection and stress reaction/fracture. If clinical in dicated, MRI can be considered. [facility] Referring Provider Line: [phone] SITE ID: [id number]
[2017-08-20] MEDS: SODIUM CHLORIDE FLUSH 0.9% 10 ML SYRINGE IVP SCH ×2 (00:15→08:28)
[2017-08-20] MEDS: NS W/20 MEQ KCL 1,000 ML IV SCH ×2 (00:15→08:27)
[2017-08-20 05:42] LABS: BASOPHILS # (AUTO) 0.1 10^3/uL (0.0-0.1); BASOPHILS % (AUTO) 0.7 %; EOSINOPHILS # (AUTO) 0.2 10^3/uL (0.0-0.7); EOSINOPHILS % (AUTO) 1.5 %; HGB - HEMOGLOBIN 9.9 g/dL (12.0-16.0); LYMPHOCYTES # (AUTO) 1.7 10^3/uL (1.5-3.5); LYMPHOCYTES % (AUTO) 16.6 %; MEAN CORPUSCULAR HEMOGLOBIN 29.1 pg (27.0-31.0); MEAN CORPUSCULAR HGB CONC 32.6 g/dL (32.0-36.0); MEAN CORPUSCULAR VOLUME 89.1 fL (81.0-99.0); MEAN PLATELET VOLUME 6.6 fL (7.9-10.8); MONOCYTES # (AUTO) 0.8 10^3/uL (0.0-1.0); MONOCYTES % (AUTO) 7.3 %; NEUTROPHILS # (AUTO) 7.8 10^3/uL (1.5-6.6); NEUTROPHILS % (AUTO) 73.9 %; PLT - PLATELET COUNT 275 10^3/uL (130-450); RED BLOOD COUNT 3.42 10^6/uL (4.20-5.40); WHITE BLOOD COUNT 10.5 x10^3/uL (4.8-10.8)
[2017-08-20 05:54] LABS: ALBUMIN/GLOBULIN RATIO 0.9 (1.0-2.2); ALKALINE PHOSPHATASE 46 IU/L (42-121); ALT ALANINE AMINOTRANSFERASE 11 IU/L (10-60); AST ASPARTATE AMINOTRANSFERASE 15 IU/L (10-42); BILIRUBIN,TOTAL 0.4 mg/dL (0.2-1.0); BUN - BLOOD UREA NITROGEN < 5 mg/dL (6-20); CALCIUM 8.7 mg/dL (8.5-10.3); CARBON DIOXIDE - CO2 22 mmol/L (21-32); CHLORIDE 111 mmol/L (101-111); CREATININE 0.6 mg/dL (0.4-1.0); GFR - MDRD 96 (>89); GLUCOSE 106 mg/dL (70-100); MAGNESIUM 1.7 mg/dL (1.7-2.8); PHOSPHORUS 2.4 mg/dL (2.5-4.6); SODIUM 140 mmol/L (135-145); TOTAL PROTEIN 6.2 g/dL (6.7-8.2)
[2017-08-20] MEDS: cephALEXin 250 MG CAPSULE PO SCH ×2 (06:53→12:41)
[2017-08-20 08:06] VITALS: BP 183/60
[2017-08-20] MEDS: POTASSIUM CHLORIDE 20 MEQ TABLET PO SCH (08:11)
[2017-08-20] MEDS: VANCOMYCIN 125 MG CAPSULE PO SCH ×2 (08:12→12:42)
[2017-08-20] MEDS: METOPROLOL TARTRATE 25 MG TABLET PO SCH (08:12)
[2017-08-20] MEDS: LOSARTAN 50 MG TABLET PO SCH (08:12)
[2017-08-20] MEDS: CALCIUM CARBONATE CHEW 500 MG TABLET PO SCH (08:12)
[2017-08-20] MEDS: traMADol 50 MG TABLET PO SCH ×2 (08:12→08:29)
[2017-08-20] MEDS: amLODIPine 5 MG TABLET PO SCH (08:12)
[2017-08-20] MEDS: NEUTRA-PHOS 250 MG TABLET PO SCH ×3 (08:12→12:42)
[2017-08-20] MEDS: POLYETHYLENE GLYCOL 3350 17 GM PACKET PO SCH (08:13)
[2017-08-20] MEDS: FAMOTIDINE 20 MG TABLET PO SCH (08:13)
[2017-08-20] MEDS: ENOXAPARIN 40 MG/0.4 ML SYRINGE SUBQ SCH (08:13)
[2017-08-20] MEDS: SACCHAROMYCES BOULARDII 250 MG CAPSULE PO SCH (08:13)
--- NOTE | 2017-08-20 08:43 | Discharge Plan ---
Discharge Plan Disposition: 01 Home, Self Care Condition: Good Prescriptions: Vancomycin [Vancocin] 125 mg PO QID #56 capsule Diet: Regular Activity Restrictions: Activity as Tolerated Shower Restrictions: No Driving Restrictions: No Weight Bearing: Full Weight Instruction Topics: Diet High Potassium Dc, Clostridium Difficile Infec Additional Instructions or Follow Up instructions: You presented to the emergency department after falling at home due to lightheadedness and generalized weakness. This likely occurred due to the fact that you were dehydrated from diarrhea which may have been a recurrence of your C. difficile. We spoke with your infectious disease doctor Dr. Wall and he advised that you continue on your home dose of Keflex for chronic treatment of your right knee infection. He also recommended that you take oral vancomycin for C. difficile for 14 days. I have prescribed you oral vancomycin. You did receive IV fluids and electrolyte replacement while you were hospitalized and you appear to be well-hydrated at this point. Your diarrhea has been improving significantly since hospitalization. You also had an elevated WBC count when you came in which is now improved to normal. We did obtain x-rays of both of your knees and there does not appear to be any acute fracture. He also had CT of your spine after you have the fall and that was also negative for fracture. You will need to follow-up with Dr. Wall in the next week and a half. Please call his office to make an appointment. No Smoking: If you smoke, Please STOP! Call for help.
--- NOTE | 2017-08-20 13:40 | DISCHARGE SUMMARY ---
Discharge Summary Admit Date: 08/18/17 Discharge Date: 08/20/17 Discharging Provider: Milton Waldrop MD Primary Care Provider: Ronald Pena MD Code Status: Attempt Resuscitation Condition at Discharge: Good Discharge Disposition: 01 Home, Self Care - DIAGNOSES Admission Diagnoses: 1. C. difficile diarrhea 2. Hypokalemia 3. Hyponatremia 4. Hypertension 5. History of knee replacement Discharge Diagnoses with Status of Each Condition: 1. C. difficile diarrhea: Improving 2. Hypokalemia: Resolved 3. Hyponatremia: Resolved 4. Hypertension: Stable 5. History of knee replacement: Stable - HPI History of Present Illness: Patient is an 82-year-old female with a past medical history significant for hypertension and osteoarthritis with bilateral knee replacements who presented to the emergency department with a chief complaint of diarrhea. About 3 months ago the patient had a hospitalization here at [facility] where she was found to have an infected right knee joint. She was sent to [facility] where she had an I&D performed and was placed on IV antibiotics. The patient received 7 weeks of IV antibiotics to complete treatment for her septic joint. After completing treatment the patient developed diarrhea which was diffuse and she was tested for C. difficile and the test was positive. The patient was placed on oral Flagyl which she took for 10 days. She completed treatment 1 week ago and had had complete resolution of her symptoms. She states that today she began having abdominal cramping and then began having diffuse diarrhea. She states the diarrhea was very similar to when she had C. difficile. It was foul-smelling and loose. She states that she had multiple bouts of diarrhea and then when she got off the toilet she states that she felt lightheaded and collapsed to the floor. She hit her left knee on the floor but did not lose consciousness. She states that she was very weak and could not get up and therefore came into the hospital. The patient denies any headaches, blurred vision, runny nose, sore throat, nasal congestion, difficulty swallowing, fevers, chills, chest pain, shortness of air, orthopnea, PND, increased lower extremity swelling, palpitations, cough , nausea, vomiting, urinary urgency, urinary frequency, dysuria, joint pain, muscle aches, back pain, neck stiffness, changes in her appetite, recent unintentional weight loss, skin changes, hair loss, or any focal neurologic deficits. On presentation to the emergency department the patient was afebrile but she was tachycardic hypertensive and was not in any respiratory distress. The patient's initial lab work showed a leukocytosis of 17.7 and a potassium of 3.0. Patient was extremely weak and continuing to have diarrhea. Given that patient has severe c diff with reoccurrence and appears very dehydrated. She will be admitted for treatment of c diff, electrolyte replacement and hydration. - HOSPITAL COURSE Hospital Course: (1) C. difficile diarrhea Assessment/Plan: Patient initially was diagnosed with c diff on 07/27/2017 after receiving 7 weeks of IV antibiotics for a septic joint infection and currently on chronic PO keflex as she still has prosthetic joint She completed treatment with PO flagyl 1 week ago and was symptom free She then had several bouts of diarrhea and abdominal cramping She collapsed to the floor at home and could not get up secondary to weakness from dehydration throughout the day On presentation to the ER she has WBC of 17.7, appeared dry and had K of 3.0 She was too weak to be able to stand up in the ER Admitted for reoccurrence of c diff Started on PO vancomycin 125 mg QID spoke with ID from [facility] who was not convinced that this was a reoccurrence of c diff or residual diarrhea after C diff treatment especially given that C diff PCR was negative. He advised that patient be treated with PO vanco x 14 days and continue on PO kelflex for joint infection She will follow up in the ID clinic in 1-2 weeks WBC improved to 10.5 Diarrhea resolved Patients strength improved (2) Hypokalemia Conclusion/Plan: Secondary to diarrhea K is 3.0 on presentation Resolved with replacement (3) Hyponatremia Conclusion/Plan: Appears hypovolemic likely from diarrhea Na 133 at presentation Resolved with IVFs (4) HTN (hypertension) Conclusion/Plan: BP elevated on presentation Restarted BP meds Continued to be high Patient will need follow up with PCP for adjustment of meds Qualifiers: Hypertension type: essential hypertension Qualified Code(s): I10 - Essential (primary) hypertension (5) History of knee replacement Conclusion/Plan: Right knee was infected and patient received 7 weeks of IV abx still has prosthetic joint so on chronic keflex Spoke with ID from [facility] who recommended restarting Keflex and continuing keflex indefinitely knee appears normal and x rays of both knees revealed no acute fractures Pain was controlled - ALLERGIES Allergies/Adverse Reactions: Allergies Allergy/AdvReac Type Severity Reaction Status Date / Time naproxen AdvReac Unknown Verified 08/18/17 09:18 - MEDICATIONS Home Medications: Ambulatory Orders Medication Instructions Recorded Confirmed Losartan Potassium 100 mg PO DAILY 02/22/16 08/18/17 Amlodipine Besylate 10 mg PO DAILY 08/18/17 08/18/17 Metoprolol Tartrate 25 mg PO BID 08/18/17 08/18/17 Pantoprazole [Protonix] 40 mg DAILY 08/18/17 08/18/17 traZODone [Desyrel] 25 mg PO QPM PRN 08/18/17 08/18/17 Vancomycin [Vancocin] 125 mg PO QID #56 capsule 08/20/17 cephALEXin [Keflex] 500 mg PO Q8H capsule 08/20/17 - PHYSICAL EXAM AT DISCHARGE General Appearance: positive: No acute distress, Alert Eyes Bilateral: positive: Normal inspection, PERRL, EOMI, No lid inflammation, Conjunctivae nml, No scleral icterus ENT: positive: ENT inspection nml, Pharynx nml, No signs of dehydration. negative: Purulent nasal drainage, Pharyngeal erythema, Oral lesions Neck: positive: Nml inspection, Thyroid nml, No JVD, Trachea midline. negative : Thyromegaly, Lymphadenopathy (R), Lymphadenopathy (L), Carotid bruit, Tracheal deviation Respiratory: positive: Chest non-tender, No respiratory distress, Breath sounds nml. negative: Wheezes, Rales, Rhonchi Cardiovascular: positive: Regular rate & rhythm, No murmur, No gallop Peripheral Pulses: positive: 2+ Abdomen: positive: Non-tender, No organomegaly, Nml bowel sounds, No distention. negative: Guarding, Rebound, Hepatomegaly Back: positive: Nml inspection. negative: CVA tenderness (R), CVA tenderness (L ) Skin: positive: Color nml, No rash, Warm. negative: Cyanosis, Pallor, Skin rash Extremities: positive: Non-tender, Full ROM, Nml appearance, No pedal edema Neurologic/Psychiatric: positive: Oriented x3, CN's nml (2-12), Motor nml, Sensation nml, Mood/affect nml - LABS Result Diagrams: 08/20/17 05:20 08/20/17 05:20 - DIAGNOSTIC IMAGING Diagnostic Imaging Results: Final report reviewed Diagnostic Imaging Results Comments: Cervical spine x-ray Impression: 1. No fracture or subluxation 2. Mild degenerative disc disease C4-C5 through C5-C6 CT head Impression: 1. Prominent superficial soft tissue swelling with cephalic hematoma 2. Maxillary sinus air-fluid levels, acute sinusitis versus bleeding into the sinuses 3. Generalized age-related cortical atrophic changes without evidence of acute intracranial abnormality. Knee x-ray Impression: Left total knee arthroplasty showing grossly and now anatomic alignment. No fracture or joint effusion. Knee x-ray Impression: 1. No right knee fracture or malalignment seen 2. There is new subtle periosteal reaction involving distal right femoral metadiaphysis of uncertain etiology. Differential would include early infection and stress reaction/fracture. If clinically indicated MRI can be considered. - FOLLOW UP Follow Up: Patient will follow up with her primary care physician and infectious disease Dr. Wall in 1-2 weeks. She will be continued on oral vancomycin for treatment of C. difficile recurrence for 14 days. She will continue to take oral Keflex and will need to follow-up with orthopedics regarding her right knee. - TIME SPENT Time Spent in Discharge (Minutes): 35
== END 2017-08-20 13:00 | disposition home or self-care (01) | DRG 372 ==
LOC: EDUNIT# → ED 09:11 → MS2 15:27
PROVIDERS: ADMIT Internal Medicine; ATTEND Internal Medicine
DX: S00.83XA Contusion of other part of head, initial encounter (principal); S80.02XA Contusion of left knee, initial encounter; S60.512A Abrasion of left hand, initial encounter; M54.2 Cervicalgia; W18.2XXA Fall in (into) shower or empty bathtub, initial encounter; A04.71 Enterocolitis due to Clostridium difficile, recurrent; Y83.1 Surgical operation with implant of artificial internal device as the cause of abnormal reaction of the patient, or of later complication, without mention of misadventure at the time of the procedure; E87.1 Hypo-osmolality and hyponatremia; E86.0 Dehydration; E87.6 Hypokalemia; Z87.891 Personal history of nicotine dependence; Z91.81 History of falling; E86.1 Hypovolemia; M25.561 Pain in right knee; M25.562 Pain in left knee; W18.12XA Fall from or off toilet with subsequent striking against object, initial encounter; Y92.002 Bathroom of unspecified non-institutional (private) residence as the place of occurrence of the external cause; I10 Essential (primary) hypertension; Z96.653 Presence of artificial knee joint, bilateral; Z79.2 Long term (current) use of antibiotics
CPT/HCPCS: 36415; 51701; 70450; 72040; 80048; 80053; 81001; 81003; 83605; 83735; 84100; 85025; 87086; 87493; 96361; 96365; 96366; 99283; 99284

== ENCOUNTER 2017-09-29 08:00 | Outpatient (CLI) | payer MEDICARE, OTHER | END 2017-09-29 08:01 | LOC: LAB.R 08:00 | PROVIDERS: ATTEND Internal Medicine Infectious Disease | DX: R19.7 Diarrhea, unspecified (principal) | CPT/HCPCS: 87493 ==

== ENCOUNTER 2017-11-12 20:21 | Outpatient (CLI) | payer MEDICARE, OTHER | END 2017-11-12 20:22 | disposition critical access hospital (66) | LOC: EMS 20:21 | PROVIDERS: ATTEND Surgery | DX: R41.82 Altered mental status, unspecified (principal) | CPT/HCPCS: A0425; A0427 ==

== ENCOUNTER 2017-11-12 20:49 | Inpatient (IN) | payer MEDICARE, OTHER ==
--- NOTE | 2017-11-12 20:59 | ED Physician Documentation ---
PD HPI ALTERED MENTAL STATUS - Stated complaint Stated Complaint: LOC S/P RECENT FALL - History obtained from History obtained from: Patient, Family, EMS - History of Present Illness Timing - onset: Enter time (10:00), Today Timing - duration: Hours Timing - details: Abrupt onset Quality / character: Confused Associated symptoms: Fever (Tmax 100.4) Contributing factors: Recent injury. No: Anticoagulated Basline status: Alert and oriented X 3, Ambulatory, Independent, Home Treatment HARDBOARD GRINDER: Accucheck (189) Recently seen: Not recently seen - Additional information Additional information: BIBA for AMS. Per and EMS report, patient was well until approximately 10 AM when she sat down in a chair at home and then did not get up for the rest of the day until medics arrived. says she was confused, became incontinent of urine during the day (which is abnormal for her). Medics found patient to be confused on their initial assessment, although she has improved en route and arrives AAOx3. She c/o fatigue to me and tells the triaging RN that she feels confused. fell 3 days ago, fell back in chair while seated at home. Denies LOC, denies MONCADA. Completed course of vancomycin for clostridium difficile (finished abx. approximately 1 week ago) Review of Systems Constitutional: reports: Fever (medics measured temperature HARDBOARD GRINDER, 100.4), Fatigue Eyes: reports: Reviewed and negative Ears: reports: Reviewed and negative Nose: reports: Reviewed and negative Throat: reports: Reviewed and negative Cardiac: reports: Reviewed and negative Respiratory: reports: Reviewed and negative GI: reports: Nausea, Vomiting. denies: Abdominal Pain, Constipation, Diarrhea : reports: Incontinent. denies: Dysuria, Frequency Skin: reports: Reviewed and negative Musculoskeletal: reports: Reviewed and negative Neurologic: reports: Generalized weakness, Confused. 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 TRANSFERRER: Hysterectomy HEENT: Tonsil/Adenoidectomy - Present Medications Home Medications: Ambulatory Orders Medication Instructions Recorded Confirmed Losartan Potassium 100 mg PO DAILY 02/22/16 08/18/17 - Allergies Allergies/Adverse Reactions: Allergies Allergy/AdvReac Type Severity Reaction Status Date / Time naproxen AdvReac Unknown Verified 08/18/17 09:18 - Social History Does the pt smoke?: No Smoking Status: Former smoker Does the pt drink ETOH?: Yes Does the pt have substance abuse?: No - Immunizations Immunizations are current?: Yes - POLST Patient has POLST: No POLST Status: Full Code (with CPR but no incubation.) PD ED PE NORMAL - Vitals Vital signs reviewed: Yes - General General: Alert and oriented X 3, No acute distress, Well developed/nourished - HEENT HEENT: PERRL, EOMI, Moist mucous membranes, Pharynx benign - Neck Neck: Supple, no meningeal sign - Cardiac Cardiac: RRR, No gallop, No rub - Respiratory Respiratory: No respiratory distress, Clear bilaterally - Abdomen Abdomen: Normal bowel sounds, Soft, Non tender, Non distended - Back Back: No CVA TTP - Derm Derm: Normal color, Warm and dry, No rash - Extremities Extremities: Other (mild bilateral edema proximal lower leg with hyperpigmentation of bilateral pretibial surfaces) - Neuro Neuro: Alert and oriented X 3, credit risk officer 2-12 intact, No motor deficit, No sensory deficit, Normal speech Eye Opening: Spontaneous Motor: Obeys Commands Verbal: Oriented GCS Score: 15 PD ED PE EXPANDED - Cardiac Cardiac: Murmur Present (2/6 JAROCHO at base) Results - Vitals Vitals: Vital Signs - 24 hr 11/12/17 11/12/17 11/12/17 20:50 21:59 22:46 Temperature 37.2 C 37.3 C 37.4 C Heart Rate 98 90 99 Respiratory 18 26 H 25 H Rate Blood Pressure 172/68 H 172/68 H 155/108 H O2 Saturation 98 95 96 Oxygen O2 Source Room air - EKG (time done) No standard instances Rate: Rate (enter#) (90) Rhythm: NSR Baring: Normal Intervals: Normal ND QRS: Normal Ischemia: Normal ST segments Other comments: Other comments (PAC) - Labs Labs: Laboratory Tests 11/12/17 11/12/17 11/12/17 21:15 21:15 21:15 WBC 20.2 H RBC 4.28 Hgb 12.7 Hct 38.7 MCV 90.5 MCH 29.8 MCHC 32.9 RDW 14.5 Plt Count 233 MPV 7.1 L Neut # (Auto) 18.3 H Lymph # (Auto) 0.7 L Pierce # (Auto) 1.1 H Eos # (Auto) 0.0 Baso # (Auto) 0.1 Absolute Nucleated RBC 0.01 Nucleated RBC % 0.1 Manual Slide Review Indicated WBC Morphology NORMAL APPEARANCE Platelet Estimate NORMAL (130-450,000) Platelet Morphology PLATELET CLUMPING RBC Morph Micro Appear NORMAL APPEARANCE Sodium 132 L Potassium 3.3 L Chloride 100 L Carbon Dioxide 22 Anion Gap 10.0 BUN 16 Creatinine 0.9 Estimated GFR (MDRD) 60 L Glucose 158 H Lactic Acid Calcium 8.7 Total Bilirubin 1.2 H AST 17 ALT 11 Alkaline Phosphatase 77 Troponin I < 0.04 Total Protein 6.9 Albumin 3.6 Globulin 3.3 Albumin/Globulin Ratio 1.1 Lipase 20 L Urine Color Urine Clarity Urine pH Ur Specific [place] Urine Protein Urine Glucose (UA) Urine Ketones Urine Occult Blood Urine Nitrite Urine Bilirubin Urine Urobilinogen Ur Leukocyte Esterase Ur Microscopic Review Urine Culture Comments 11/12/17 11/12/17 21:15 21:30 WBC RBC Hgb Hct MCV MCH MCHC RDW Plt Count MPV Neut # (Auto) Lymph # (Auto) Pierce # (Auto) Eos # (Auto) Baso # (Auto) Absolute Nucleated RBC Nucleated RBC % Manual Slide Review WBC Morphology Platelet Estimate Platelet Morphology RBC Morph Micro Appear Sodium Potassium Chloride Carbon Dioxide Anion Gap BUN Creatinine Estimated GFR (MDRD) Glucose Lactic Acid 1.3 Calcium Total Bilirubin AST ALT Alkaline Phosphatase Troponin I Total Protein Albumin Globulin Albumin/Globulin Ratio Lipase Urine Color YELLOW Urine Clarity CLEAR Urine pH 5.5 Ur Specific [place] 1.025 Urine Protein NEGATIVE Urine Glucose (UA) NEGATIVE Urine Ketones 15 H Urine Occult Blood TRACE-INTA Urine Nitrite NEGATIVE Urine Bilirubin NEGATIVE Urine Urobilinogen 0.2 (NORMAL) Ur Leukocyte Esterase NEGATIVE Ur Microscopic Review NOT INDICATED Urine Culture Comments NOT INDICATED - Rads (name of study) CT head Radiology: Prelim report reviewed, See rad report chest xray Radiology: Prelim report reviewed, See rad report PD MEDICAL DECISION MAKING - ED course Complexity details: reviewed old records, reviewed results, re-evaluated patient , considered differential, d/w patient, d/w family - Sepsis Event Vital Signs: Vital Signs - 24 hr 11/12/17 11/12/1711/12/18 20:50 21:59 22:46 Temperature 37.2 C 37.3 C 37.4 C Heart Rate 98 90 99 Respiratory 18 26 H 25 H Rate Blood Pressure 172/68 H 172/68 H 155/108 H O2 Saturation 98 95 96 Oxygen O2 Source Room air Departure - Departure Disposition: ED Place in Observation Clinical Impression: Altered mental status, Weakness Condition: Stable Discharge Date/Time: 11/13/17 00:10
[2017-11-12 21:37] LABS: BASOPHILS # (AUTO) 0.1 10^3/uL (0.0-0.1); BASOPHILS % (AUTO) 0.3 %; HGB - HEMOGLOBIN 12.7 g/dL (12.0-16.0); LYMPHOCYTES # (AUTO) 0.7 10^3/uL (1.5-3.5); LYMPHOCYTES % (AUTO) 3.6 %; MEAN CORPUSCULAR HEMOGLOBIN 29.8 pg (27.0-31.0); MEAN CORPUSCULAR HGB CONC 32.9 g/dL (32.0-36.0); MEAN CORPUSCULAR VOLUME 90.5 fL (81.0-99.0); MEAN PLATELET VOLUME 7.1 fL (7.9-10.8); MONOCYTES # (AUTO) 1.1 10^3/uL (0.0-1.0); MONOCYTES % (AUTO) 5.6 %; NEUTROPHILS # (AUTO) 18.3 10^3/uL (1.5-6.6); NEUTROPHILS % (AUTO) 90.5 %; PLT - PLATELET COUNT 233 10^3/uL (130-450); RED BLOOD COUNT 4.28 10^6/uL (4.20-5.40); RED CELL DISTRIBUTION WIDTH 14.5 % (12.0-15.0); WHITE BLOOD COUNT 20.2 x10^3/uL (4.8-10.8)
[2017-11-12 21:40] LABS: ALBUMIN 3.6 g/dL (3.2-5.5); ALBUMIN/GLOBULIN RATIO 1.1 (1.0-2.2); BILIRUBIN,TOTAL 1.2 mg/dL (0.2-1.0); CALCIUM 8.7 mg/dL (8.5-10.3); CREATININE 0.9 mg/dL (0.4-1.0); TOTAL PROTEIN 6.9 g/dL (6.7-8.2)
[2017-11-12 21:41] LABS: BILIRUBIN,URINE NEGATIVE (NEGATIVE); GLUCOSE, URINE (UA) NEGATIVE (NEGATIVE); KETONES,URINE (UA) 15 mg/dL (NEGATIVE); LEUKOCYTE ESTERASE, URINE NEGATIVE (NEGATIVE); NITRITE,URINE NEGATIVE (NEGATIVE); OCCULT BLOOD,URINE TRACE-INTA (NEGATIVE); PH,URINE 5.5 PH (5.0-7.5); PROTEIN,URINE NEGATIVE (NEGATIVE); UROBILINOGEN,URINE 0.2 (NORMAL) E.U./dL (NORMAL)
[2017-11-12 21:43] LABS: CLARITY,URINE CLEAR (CLEAR)
[2017-11-12 21:50] LABS: PLATELET ESTIMATE, MANUAL NORMAL (130-450,000) (NORMAL); PLATELET MORPHOLOGY PLATELET CLUMPING (NORMAL); RBC MORPHOLOGY (MULTIPLE) NORMAL APPEARANCE (NORMAL)
--- NOTE | 2017-11-12 22:34 | CT Report ---
Procedure Date: 11/12/2017 Accession Number: [id number] / [id number] Procedure: CT - Head W/O CPT Code: FULL RESULT: EXAM: CT HEAD EXAM DATE: 11/12/2017 10:13 PM. CLINICAL HISTORY: Weakness, altered mental status. COMPARISON: HEAD W/O 08/18/2017. TECHNIQUE: Multiaxial CT images were obtained from the foramen magnum to the vertex. Reformats: Coronal. IV contrast: None. In accordance with CT protocol optimization, one or more of the following dose reduction techniques were utilized for this exam: automated exposure control, adjustment of mA and/or KV based on patient size, or use of iterative reconstructive technique. FINDINGS: Parenchyma: No intraparenchymal hemorrhage. No evidence of mass, midline shift, or CT findings of acute infarction. 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 Putnam-white differentiation is distinct. Mild diffuse chronic microangiopathic white matter changes are evident. Extraaxial Spaces: Normal for age. No subdural or epidural collections identified. Ventricles: The ventricles and cortical sulci are moderately enlarged, consistent with age-related tissue loss. Sinuses and orbits: Postsurgical changes from cataract extractions are noted in the globes. The paranasal and mastoid sinuses are not opacified. Bones: A small left frontal scalp hematoma is present without an underlying calvarial fracture. Other: Mild intracranial atherosclerosis is noted. IMPRESSION: 1. No acute intracranial process. 2. Small left frontal scalp hematoma without calvarial fracture. RADIA
--- NOTE | 2017-11-12 22:49 | XRAY Report ---
Procedure Date: 11/12/2017 Accession Number: [id number] / [id number] Procedure: XR - Chest 2 View X-Ray CPT Code: 76352 FULL RESULT: EXAM: CHEST RADIOGRAPHY EXAM DATE: 11/12/2017 10:26 PM. CLINICAL HISTORY: Fever. COMPARISON: CHEST 2 VIEW PA/LAT 04/27/2013. TECHNIQUE: 2 views. FINDINGS: Lungs/Pleura: No focal opacities evident. No pleural effusion. No pneumothorax. Normal volumes. Mediastinum: Normal heart size. There is thoracic aortic tortuosity. Other: None. IMPRESSION: No acute intrathoracic plain film abnormality. RADIA
--- NOTE | 2017-11-12 23:06 | HISTORY & PHYSICAL EXAMINATION ---
Chief Complaint - Chief Complaint Chief Complaint: Decreased level of consciousness History of Present Illness - Admitted From Admitted From:: Emergency Department - History Obtained From Records Reviewed: Yes History obtained from: Patient and pateints Exam Limitations: Patient was drowsy but arousable and answered appropriately - History of Present Illness HPI Comment/Other: Patient is an 82-year-old female with a past medical history significant for hypertension, osteoarthritis with bilateral knee replacements and recurrent C. difficile infection who presented to the emergency department with a chief complaint of decreased level of consciousness. The patient was admitted to [facility] about 5 months ago at which time she was found to have an infected knee joint. She was sent to [facility] where she underwent an I&D and was placed on IV antibiotics. The patient received 7 weeks of IV antibiotics to complete treatment for her septic joint. The patient was then continued on p.o. Keflex. After completing treatment with IV antibiotics the patient developed diarrhea which was diffuse and she was tested for C. difficile and test was positive. Patient was then placed on Flagyl which she took for 10 days. After completing treatment with Flagyl the patient seems to be doing well but about a week later she began developing abdominal cramping and diffuse diarrhea. The patient was found to have C. difficile and admitted to [facility] on 08/18/2017. She was hospitalized for 2 days and discharged home on oral vancomycin. She was also continued on oral Keflex. The patient was followed by infectious disease at [facility] Dr. Wall. The patient's oral vancomycin and Keflex were stopped about 1 month ago. The patient states that over the last month she has been feeling well and has had no further episodes of diarrhea. She also states that her right knee has not had any swelling or pain. She has been working with physical therapy to improve her range of motion in bilateral lower extremities. According to the patient's the patient was doing well until yesterday. He states that last night the patient did not sleep well and was agitated throughout the night. He states that this morning she had to take him to an appointment in [place] and drove. When she returned home the patient prepared breakfast but then sat at the table and had no appetite. He states that she vomited and then had some incontinence of urine while at the table. He states that she was very lethargic. He states that she has been sleeping off and on for most of the day. The patient has had no energy, generalized weakness and lethargy throughout the day. He states this evening she she continued to be very drowsy and he became concerned therefore he decided to bring the patient to the emergency department. According to the patient she has been having abdominal cramping since later this afternoon. She also states that she is having body aches and had a fever prior to coming to the emergency department. The patient denies any chills, diarrhea, cough, urinary urgency, urinary frequency, dysuria , seizures, focal neurologic deficits or any neck stiffness. The patient also denies any new rashes or swelling in her joints. The patient states that she did have a fall 2 nights ago when she lost her balance getting up from a chair and fell and hit her head on a cabinet. The patient denies having had recurrent falls and states that she was not having any of the above symptoms at that time. Patient denies any headaches, blurred vision, runny nose, sore throat, nasal congestion, difficulty swallowing, chest pain, shortness of air, orthopnea, PND , increased lower extremity swelling, back pain, recent unintentional weight loss, hair loss, polyuria, polydipsia, night sweats. On arrival of EMS to the patient's home the patient was found to be febrile with a temperature of 100.4 Fahrenheit. On presentation to the emergency department the patient's temperature was 37.2, she was tachycardic with a heart rate of 98, she was hypertensive with a blood pressure of 172/68 and was significantly tachypneic with respiratory rate in the high 20s. The patient was saturating well on room air but appeared quite ill and was very lethargic. The patient underwent routine lab work which showed a leukocytosis of 20.2 with a left shift. Patient was hyponatremic with a sodium of 132 and hypokalemic with a potassium of 3.3. Patient's glucose was elevated at 158 and her bilirubin was slightly elevated at 1.2. The patient's UA was negative. Given her decreased mentation the patient also underwent a CT of her head which showed no acute intracranial process. There was a small left frontal scalp hematoma without calvarial fracture. The patient's chest x-ray showed no acute intrathoracic plain film abnormality. The patient did undergo an EKG which showed sinus rhythm without any ST elevations or ischemic changes. Given the patient's continued lethargy, low-grade fever, tachypnea, tachycardia, leukocytosis and just ill appearance it was felt that the patient has early sepsis and needs to be monitored closely overnight in observation. Blood cultures were obtained in the emergency department and will need to be followed up. History - Past Medical History Cardiovascular: reports: Hypertension Respiratory: reports: None Endocrine/Autoimmune: reports: None GI: reports: GERD, Hiatal hernia, C.difficile (Recurrent) : reports: Incontinence HEENT: reports: Other Psych: reports: None Musculoskeletal: reports: Osteoarthritis (s/p bilateral knee replacments), Osteopenia Derm: reports: None MRSA Hx?: No - Past Surgical History Ortho: reports: Knee replacement /CLAMMER: reports: Hysterectomy HEENT: reports: Tonsil/Adenoidectomy - Family & Social History Family History: Mother: (Mother at the age of 97), Cancer, Father : , CAD Living arrangement: At home Living Situation: With spouse/s.o. Social History Notes: The patient lives with her in [place], [place]. They have been living on [facility] for 23 years. Previously they lived in [place]. Together they have one son who lives in [place]. They last visited their son in [place] 5 years ago but he was here in 2016 to visit them. The patient is a former smoker quit smoking 25 years ago. She smoked about half a pack a day for 25-30 years. She does drink a glass of wine daily. She denies any illicit drug use. At home the patient ambulates independently without a walker or cane. She does undergo physical therapy and is still very independent in her activities of daily living. - Substance History Use: Uses substance without health or social issues: NONE - POLST Patient has POLST: No POLST Status: Full Code (with CPR but no incubation.) Meds/Allgy - Home Medications Home Medications: Ambulatory Orders Medication Instructions Recorded Confirmed Losartan Potassium 100 mg PO DAILY 02/22/16 08/18/17 - Allergies Allergies/Adverse Reactions: Allergies Allergy/AdvReac Type Severity Reaction Status Date / Time naproxen AdvReac Unknown Verified 08/18/17 09:18 Review of Systems - Other Findings Other Findings: A comprehensive review of systems was performed the pertinent positives and negatives are stated above in the HPI and the remainder of the review of systems is negative. Exam - Vital Signs Reviewed Vital Signs: Yes Vital Signs: Vital Signs x48h Temp Pulse Resp BP Pulse Ox 11/12/17 22:46 37.4 C 99 25 H 155/108 H 96 11/12/17 21:59 37.3 C 90 26 H 172/68 H 95 11/12/17 20:50 37.2 C 98 18 172/68 H 98 - Physical Exam General Appearance: positive: Mild distress (Patient looks unwell, is tachypneic and very lethargic.), Lethargic (Has 2 be aroused repeatedly to answer many of my questions.) Eyes Bilateral: positive: Normal inspection, PERRL, EOMI, No lid inflammation, Conjunctivae nml, No scleral icterus ENT: positive: ENT inspection nml, Pharynx nml, Dry mucous membranes. negative : Purulent nasal drainage, Pharyngeal erythema, Oral lesions Neck: positive: Nml inspection, Thyroid nml, No JVD, Trachea midline. negative : Thyromegaly, Lymphadenopathy (R), Lymphadenopathy (L), Carotid bruit, Tracheal deviation Respiratory: positive: Chest non-tender, Breath sounds nml, Other (The patient is tachypneic). negative: Wheezes, Rales, Rhonchi Cardiovascular: positive: No murmur, No gallop, Tachycardia Peripheral Pulses: positive: 2+ Abdomen: positive: No organomegaly, No distention, Tenderness (Patient has tenderness in her abdomen diffusely, there are no peritoneal signs and patient' s abdomen is soft.), Abnml bowel sounds (Patient has increased bowel sounds). negative: Guarding, Rebound Back: positive: Nml inspection. negative: CVA tenderness (R), CVA tenderness (L ) Skin: positive: Color nml, No rash, Warm, Dry. negative: Diaphoresis, Pallor Extremities: positive: Non-tender, Full ROM, Nml appearance, No pedal edema, Other (Bilateral knees appear normal without any swelling or erythema. There is scarring from her previous surgeries) Neurologic/Psychiatric: positive: Oriented x3, CN's nml (2-12), Motor nml, Sensation nml, Mood/affect nml, Other (Lethargic) Conclusion/Plan - Problem List (1) Sepsis Conclusion/Plan: The patient presents with a leukocytosis in conjunction with decreased level of consciousness, increasing fatigue, decreased appetite, generalized weakness, fever and abdominal cramping. The patient appears to be septic with tachycardia , tachypnea, leukocytosis of 20,000 and low-grade fever. Currently the source of sepsis is unknown. Patient has undergone chest x-ray, urine analysis and CT of her head all of which were negative. On patient's last hospitalization the patient had a leukocytosis that was secondary to C. difficile infection. The patient has also had infection of her right knee joint with a septic joint. The patient's presentation is concerning for early sepsis and a brewing infection. Although we will hold off on starting antibiotics at this point we will monitor her closely and place her in observation. Plan: Follow-up blood cultures Monitor closely for diarrhea or other symptoms IV fluids Monitor CBC Qualifiers: Sepsis type: sepsis due to unspecified organism Qualified Code(s): A41.9 - Sepsis, unspecified organism (2) Decreased level of consciousness Conclusion/Plan: The patient presented with decreased level of consciousness, generalized weakness, decreased energy, decreased appetite, nausea, abdominal cramping and fever. The patient's decreased level of consciousness appears to be secondary to sepsis. The patient's white blood cell count is elevated at 20,000 and she had low-grade fever on presentation. The patient had a negative chest x-ray and urine analysis. Given the patient's history of Clostridium difficile infection it is very likely that the patient has a brewing C. difficile infection but has not yet began having diarrhea. Her symptoms appear to be systemic therefore it is felt that the patient needs to be kept in observation for sepsis with unknown source. The patient's CT head was negative. Plan: Monitor closely in observation IV fluids If patient has diarrhea we will check stools for C. difficile Follow-up blood cultures (3) Hypokalemia Conclusion/Plan: The patient is hypokalemic on presentation with a potassium of 3.3. This is likely secondary to her nausea and ongoing sepsis. The patient will be given potassium replacement and we will continue to monitor her potassium. (4) Hyponatremia Conclusion/Plan: Patient presents with hyponatremia as her sodium is 132. The patient appears to have hypovolemic hyponatremia as she has dry mucous membranes. Patient likely has hyponatremia secondary to ongoing sepsis which is caused dehydration. Patient will be given IV fluids and will continue to monitor her sodium. (5) History of bilateral knee replacement Conclusion/Plan: The patient does have history of bilateral knee replacements with septic joint on the right knee. Although the patient has completed both IV and oral treatment for this septic joint along with I&D given her presentation with what appears to be early sepsis we will need to monitor closely for recurrence of septic joint. Patient has not been started on antibiotics as we will await blood cultures and hope to find source of this ongoing sepsis. (6) History of Clostridium difficile infection Conclusion/Plan: The patient has a history of recurrent C. difficile and her presentation today is very suspicious for early C. difficile infection. Although the patient has not started to have diarrhea she is having systemic symptoms which suggest that she has an infection. The patient has a leukocytosis of 20,000 with low-grade fever and lethargy. The patient is also tachypneic suggesting that she may be headed towards sepsis. The patient is having abdominal cramping and feels similar to when she did have her most recent C. difficile infection. The patient has now been off of vancomycin oral for 1 month. Plan: Monitor for diarrhea and send stool for C. difficile if patient has diarrhea Contact Dr. Wall if the patient does have positive C. difficile as he had told the patient that he did not want her to receive vancomycin in the future. Dr. Wall's phone number is [phone]. (7) HTN (hypertension) Conclusion/Plan: Patient is a history of hypertension and blood pressure is elevated on presentation. Although the patient appears to be borderline septic with tachycardia, tachypnea, leukocytosis and low-grade fever we will continue the patient's home dose of antihypertensive. We will monitor her blood pressure closely if the patient's blood pressure begins to drop we will need to hold antihypertensives and continue with IV fluids. Qualifiers: Hypertension type: essential hypertension Qualified Code(s): I10 - Essential (primary) hypertension - Lab Results Lab results reviewed: Yes Fish Bones: 11/12/17 21:15 11/12/17 21:15 Other Lab Results: Laboratory Results WBC 20.2 x10^3/uL (4.8-10.8) H 11/12/17 21:15 RBC 4.28 10^6/uL (4.20-5.40) 11/12/17 21:15 Hgb 12.7 g/dL (12.0-16.0) 11/12/17 21:15 Hct 38.7 % (37.0-47.0) 11/12/17 21:15 MCV 90.5 fL (81.0-99.0) 11/12/17 21:15 MCH 29.8 pg (27.0-31.0) 11/12/17 21:15 MCHC 32.9 g/dL (32.0-36.0) 11/12/17 21:15 RDW 14.5 % (12.0-15.0) 11/12/17 21:15 Plt Count 233 10^3/uL (130-450) 11/12/17 21:15 MPV 7.1 fL (7.9-10.8) L 11/12/17 21:15 Neut # (Auto) 18.3 10^3/uL (1.5-6.6) H 11/12/17 21:15 Lymph # (Auto) 0.7 10^3/uL (1.5-3.5) L 11/12/17 21:15 [place] # (Auto) 1.1 10^3/uL (0.0-1.0) H 11/12/17 21:15 Eos # (Auto) 0.0 10^3/uL (0.0-0.7) 11/12/17 21:15 Baso # (Auto) 0.1 10^3/uL (0.0-0.1) 11/12/17 21:15 Absolute Nucleated RBC 0.01 x10^3/uL 11/12/17 21:15 Nucleated RBC % 0.1 /100WBC 11/12/17 21:15 Manual Slide Review Indicated 11/12/17 21:15 WBC Morphology NORMAL APPEARANCE (NORMAL) 11/12/17 21:15 Platelet Estimate NORMAL (130-450,000) (NORMAL) 11/12/17 21:15 Platelet Morphology PLATELET CLUMPING (NORMAL) 11/12/17 21:15 RBC Morph Micro Appear NORMAL APPEARANCE (NORMAL) 11/12/17 21:15 Sodium 132 mmol/L (135-145) L 11/12/17 21:15 Potassium 3.3 mmol/L (3.5-5.0) L 11/12/17 21:15 Chloride 100 mmol/L (101-111) L 11/12/17 21:15 Carbon Dioxide 22 mmol/L (21-32) 11/12/17 21:15 Anion Gap 10.0 (6-13) 11/12/17 21:15 BUN 16 mg/dL (6-20) 11/12/17 21:15 Creatinine 0.9 mg/dL (0.4-1.0) 11/12/17 21:15 Estimated GFR (MDRD) 60 (>89) L 11/12/17 21:15 Glucose 158 mg/dL (70-100) H 11/12/17 21:15 Lactic Acid 1.3 mmol/L (0.5-2.2) 11/12/17 21:15 Calcium 8.7 mg/dL (8.5-10.3) 11/12/17 21:15 Total Bilirubin 1.2 mg/dL (0.2-1.0) H 11/12/17 21:15 AST 17 IU/L (10-42) 11/12/17 21:15 ALT 11 IU/L (10-60) 11/12/17 21:15 Alkaline Phosphatase 77 IU/L (42-121) 11/12/17 21:15 Troponin I < 0.04 ng/mL (<0.49) 11/12/17 21:15 Total Protein 6.9 g/dL (6.7-8.2) 11/12/17 21:15 Albumin 3.6 g/dL (3.2-5.5) 11/12/17 21:15 Globulin 3.3 g/dL (2.1-4.2) 11/12/17 21:15 Albumin/Globulin Ratio 1.1 (1.0-2.2) 11/12/17 21:15 Lipase 20 U/L (22-51) L 11/12/17 21:15 Urine Color YELLOW 11/12/17 21:30 Urine Clarity CLEAR (CLEAR) 11/12/17 21:30 Urine pH 5.5 PH (5.0-7.5) 11/12/17 21:30 Ur Specific [place] 1.025 (1.002-1.030) 11/12/17 21:30 Urine Protein NEGATIVE mg/dL (NEGATIVE) 11/12/17 21:30 Urine Glucose (UA) NEGATIVE mg/dL (NEGATIVE) 11/12/17 21:30 Urine Ketones 15 mg/dL (NEGATIVE) H 11/12/17 21:30 Urine Occult Blood TRACE-INTA (NEGATIVE) 11/12/17 21:30 Urine Nitrite NEGATIVE (NEGATIVE) 11/12/17 21:30 Urine Bilirubin NEGATIVE (NEGATIVE) 11/12/17 21:30 Urine Urobilinogen 0.2 (NORMAL) E.U./dL (NORMAL) 11/12/17 21:30 Ur Leukocyte Esterase NEGATIVE (NEGATIVE) 11/12/17 21:30 Ur Microscopic Review NOT INDICATED 11/12/17 21:30 Urine Culture Comments NOT INDICATED 11/12/17 21:30 - Diagnostic Imaging Results Diagnostic Imaging Results: positive: Final report reviewed Diagnostic Imaging Results Comments: Chest x-ray Impression: No acute intrathoracic plain film abnormality. CT head Impression: 1. No acute intracranial process. 2. Small left frontal scalp hematoma without calvarial fracture. - EKG Results EKG Interpreted Independently: Yes EKG Findings: No ST elevations or ischemic changes. Core Measures - Anticipated LOS I expect patient to be DC'd or transferred within 96 hours.: Yes - DVT/VTE - Prophylaxis VTE/DVT Prophylaxis med ordered at admit?: Yes
[2017-11-12] MEDS ORDERED: PROMETHAZINE 25 MG/1 ML VIAL IM PRN (23:07)
[2017-11-12] MEDS ORDERED: IBUPROFEN 600 MG TABLET PO PRN (23:07)
[2017-11-12] MEDS ORDERED: SODIUM CHLORIDE FLUSH 0.9% 10 ML SYRINGE IVP PRN (23:07)
[2017-11-12] MEDS ORDERED: PROCHLORPERAZINE 10 MG/2 ML VIAL IVP PRN (23:07)
[2017-11-12] MEDS ORDERED: ACETAMINOPHEN 325 MG TABLET PO PRN (23:07)
[2017-11-12] MEDS ORDERED: ONDANSETRON 4 MG/2 ML VIAL IVP PRN (23:07)
[2017-11-13] MEDS: NS W/20 MEQ KCL 1,000 ML IV SCH ×3 (00:32→22:01)
[2017-11-13] MEDS: SODIUM CHLORIDE FLUSH 0.9% 10 ML SYRINGE IVP SCH ×3 (00:32→18:32)
[2017-11-13 05:02] LABS: BASOPHILS % (AUTO) 0.1 %; EOSINOPHILS % (AUTO) 0.2 %; HGB - HEMOGLOBIN 11.4 g/dL (12.0-16.0); LYMPHOCYTES % (AUTO) 3.9 %; MEAN CORPUSCULAR HEMOGLOBIN 29.3 pg (27.0-31.0); MEAN CORPUSCULAR HGB CONC 32.5 g/dL (32.0-36.0); MEAN CORPUSCULAR VOLUME 90.2 fL (81.0-99.0); MONOCYTES % (AUTO) 5.4 %; NEUTROPHILS % (AUTO) 90.4 %; PLT - PLATELET COUNT 247 10^3/uL (130-450); RED BLOOD COUNT 3.88 10^6/uL (4.20-5.40); RED CELL DISTRIBUTION WIDTH 14.4 % (12.0-15.0); WHITE BLOOD COUNT 21.3 x10^3/uL (4.8-10.8)
[2017-11-13 05:14] LABS: ABNORMAL LYMPHS % (MANUAL) 0 %
[2017-11-13 05:16] LABS: ALBUMIN 3.4 g/dL (3.2-5.5); ALBUMIN/GLOBULIN RATIO 1.1 (1.0-2.2); BILIRUBIN,TOTAL 1.2 mg/dL (0.2-1.0); CALCIUM 8.6 mg/dL (8.5-10.3); CREATININE 0.9 mg/dL (0.4-1.0); MAGNESIUM 1.5 mg/dL (1.7-2.8); PHOSPHORUS 3.4 mg/dL (2.5-4.6); TOTAL PROTEIN 6.5 g/dL (6.7-8.2)
--- NOTE | 2017-11-13 06:53 | Ultrasound Report ---
Procedure Date: 11/13/2017 Accession Number: [id number] / [id number] Procedure: US - Abdomen Complete CPT Code: FULL RESULT: EXAM: ABDOMEN ULTRASOUND EXAM DATE: 11/13/2017 06:14 AM. CLINICAL HISTORY: Fever, leukocytosis, decreased mental status and elevated bilirubin. COMPARISON: None. TECHNIQUE: Real-time scanning was performed with static images obtained. FINDINGS: Liver: Coarse echotexture. Suboptimally seen due to body habitus and inability to hold breath. 14.9 cm. Main portal vein flow: Hepatopetal. Gallbladder: Not seen. Biliary System: Common bile duct measures 6 mm. No intrahepatic or extrahepatic ductal dilatation. Pancreas: Echogenic. Kidneys: Right: 9.5 cm longitudinally. Normal. No contour-deforming mass, stones, or hydronephrosis. Left: 10.5 cm longitudinally. Normal. No contour-deforming mass, stones, or hydronephrosis. Spleen: 11.9 cm. Normal in size and echotexture. Aorta and Inferior Vena Cava: No aneurysm seen. Atherosclerotic plaquing. Inferior vena cava is patent where seen. Other: None. IMPRESSION: 1. Gallbladder is not seen. Has there been prior cholecystectomy? 2. Coarse echotexture of the liver. 3. No other acute abnormality seen. RADIA
[2017-11-13 07:22] LABS: BAND NEUTROPHILS % (MANUAL) 19 %; DIFFERENTIAL COMMENT MANUAL DIFFERENTIAL; LYMPHOCYTES # (MANUAL) 1.1 10^3/uL (1.5-3.5); LYMPHOCYTES % (MANUAL) 5 %; MONOCYTES # (MANUAL) 1.1 10^3/uL (0.0-1.0); NEUTROPHILS # (MANUAL) 19.2 10^3/uL (1.5-6.6); NEUTROPHILS % (MANUAL) 71 %; PLATELET ESTIMATE, MANUAL NORMAL (130-450,000) (NORMAL); RBC MORPHOLOGY (MULTIPLE) NORMAL APPEARANCE (NORMAL)
[2017-11-13] MEDS ORDERED: MAGNESIUM SULFATE 1 GM in SODIUM CHLORIDE 0.9% 50 ML IV ONE (07:32)
[2017-11-13] MEDS ORDERED: FIDAXOMICIN 200 MG TABLET PO SCH (08:00)
[2017-11-13] MEDS: ENOXAPARIN 40 MG/0.4 ML SYRINGE SUBQ SCH (09:31)
[2017-11-13] MEDS: LOSARTAN 50 MG TABLET PO SCH (09:32)
[2017-11-13] MEDS: FAMOTIDINE 20 MG TABLET PO SCH (09:32)
[2017-11-13] MEDS: POLYETHYLENE GLYCOL 3350 17 GM PACKET PO SCH (09:36)
[2017-11-13 10:03] LABS: FOLATE 9.1 ng/mL (5.90 - >24.8)
[2017-11-13] MEDS: VANCOMYCIN 125 MG CAPSULE PO SCH ×3 (13:21→22:02)
--- NOTE | 2017-11-13 14:14 | PROVIDER PROGRESS NOTE ---
Subjective - Prog Note Date Prog Note Date: 11/13/17 - Subjective Pt reports feeling: Improved Subjective: pt is alert and oriented. pt report this is her third episode of diarrhea with positive C.diff. I called Dr. Wall, pt's ID doctor office. Dr. London is outside solar sales consultant. He recommend pt still use PO vancomycin, and follow up Dr. Wall's office on next week. I discuss with pt. pt agree the plan Current Medications - Current Medications Current Medications: Active Medications Acetaminophen (Tylenol) 650 mg PO Q4HR PRN PRN Reason: Pain 1 to 4 Last Admin: 11/13/17 01:21 Dose: 650 mg Enoxaparin Sodium (Lovenox) 40 mg SUBQ DAILY [facility] Last Admin: 11/13/17 09:31 Dose: 40 mg Famotidine (Pepcid) 20 mg PO DAILY [facility] Last Admin: 11/13/17 09:32 Dose: 20 mg Potassium Chloride/Sodium Chloride (Normal Saline 0.9% W/20 Meq Kcl) 1,000 mls @ 100 mls/hr IV .Q10H [facility] Last Admin: 11/13/17 09:37 Dose: 100 mls/hr Ibuprofen (Motrin) 600 mg PO Q6HR PRN PRN Reason: Pain 1 to 4 Losartan Potassium (Cozaar) 100 mg PO DAILY [facility] Last Admin: 11/13/17 09:32 Dose: 100 mg Ondansetron HCl (Zofran Inj) 4 mg IVP Q6HR PRN PRN Reason: Nausea / Vomiting Polyethylene Glycol (Miralax) 17 gm PO DAILY [facility] Last Admin: 11/13/17 09:36 Dose: Not Given Prochlorperazine Edisylate (Compazine Inj) 10 mg IVP Q6HR PRN PRN Reason: Nausea / Vomiting Promethazine HCl (Phenergan Inj) 25 mg IM Q6HR PRN PRN Reason: Nausea / Vomiting Sodium Chloride (Normal Saline Flush 0.9%) 10 ml IVP PRN PRN PRN Reason: NEEDED PER PROVIDER ORDERS Sodium Chloride (Normal Saline Flush 0.9%) 10 ml IVP 0100,0900,1700 [facility] Last Admin: 11/13/17 09:32 Dose: 10 ml Vancomycin HCl (Vancocin) 125 mg PO QID [facility] Last Admin: 11/13/17 13:21 Dose: 125 mg Losartan Potassium 100 mg PO DAILY 02/22/16 Objective - Vital Signs/Intake & Output Reviewed Vital Signs: Yes Vital Signs: Vital Signs x48h Temp Pulse Resp BP Pulse Ox 11/13/17 13:31 36.8 C 73 20 125/45 L 96 Intake & Output: Intake & Output 11/10/17 11/11/17 11/12/17 11/13/17 23:59 23:59 23:59 23:59 Intake Total 400 Balance 400 - Objective General Appearance: positive: No acute distress, Alert. negative: Lethargic Eyes Bilateral: positive: Normal inspection, PERRL, No lid inflammation, Conjunctivae nml ENT: positive: ENT inspection nml, Pharynx nml, No signs of dehydration. negative: Purulent nasal drainage, Pharyngeal erythema, Oral lesions Neck: positive: Nml inspection, Thyroid nml, No JVD, Trachea midline. negative : Thyromegaly, Lymphadenopathy (R), Lymphadenopathy (L), Stiff neck, Carotid bruit, Swelling/bruising, Tracheal deviation Respiratory: positive: Chest non-tender, No respiratory distress, Breath sounds nml. negative: Wheezes, Rales, Rhonchi Cardiovascular: positive: Regular rate & rhythm, No murmur, No gallop. negative : Irregularly irregular, Extrasystoles, Tachycardia, Bradycardia, JVD present, Systolic murmur, Diastolic murmur Peripheral Pulses: 2+ Radial (R), 2+ Radial (L), 2+ Dorsalis pedis (R), 2+ Dorsalis pedis (L) Abdomen: positive: Non-tender, No organomegaly, Nml bowel sounds, No distention. negative: Tenderness, Guarding, Rebound Back: positive: Nml inspection. negative: CVA tenderness (R), CVA tenderness (L ) Skin: positive: Color nml, No rash, Warm, Dry. negative: Cyanosis, Diaphoresis , Pallor Extremities: positive: Non-tender, Full ROM, Nml appearance. negative: Calf tenderness, Joint swelling, Dolores's sign/cords Neurologic/Psychiatric: positive: Oriented x3, Motor nml, Sensation nml, Mood/ affect nml. negative: Weakness, Sensory loss, Facial droop, Slurred/abnml speech, Depressed mood/affect - Lab Results Fish Bones: 11/13/17 04:50 11/13/17 04:50 ABX Reporting Has patient been on IV antibiotics over the past 48 hours?: Yes Assessment/Plan - Problem List (1) C. difficile diarrhea Impression: Conclusion/Plan: 11/13 pt had hx of diarrhea with C.Diff, this is the third time she had diarrhea. WBC is continue to have high at 21.3, higher than WBC 20.3 on admission. The test come back it is positive for C.diff. I called Dr. Wall's office. Dr. London called me back. He recommend to continue to use PO vancomycin, and follow Dr. Wall's office on next week. PO vancomycin 125mg QID The patient has a history of recurrent C. difficile and her presentation today is very suspicious for early C. difficile infection. Although the patient has not started to have diarrhea she is having systemic symptoms which suggest that she has an infection. The patient has a leukocytosis of 20,000 with low-grade fever and lethargy. The patient is also tachypneic suggesting that she may be headed towards sepsis. The patient is having abdominal cramping and feels similar to when she did have her most recent C. difficile infection. The patient has now been off of vancomycin oral for 1 month. Plan: Monitor for diarrhea and send stool for C. difficile if patient has diarrhea Contact Dr. Wall if the patient does have positive C. difficile as he had told the patient that he did not want her to receive vancomycin in the future. Dr. Wall's phone number is [phone]. (2) Decreased level of consciousness Conclusion/Plan: 11/13 resolved. pt is alert and oriented, and ate her breakfast. The patient presented with decreased level of consciousness, generalized weakness, decreased energy, decreased appetite, nausea, abdominal cramping and fever. The patient's decreased level of consciousness appears to be secondary to sepsis. The patient's white blood cell count is elevated at 20,000 and she had low-grade fever on presentation. The patient had a negative chest x-ray and urine analysis. Given the patient's history of Clostridium difficile infection it is very likely that the patient has a brewing C. difficile infection but has not yet began having diarrhea. Her symptoms appear to be systemic therefore it is felt that the patient needs to be kept in observation for sepsis with unknown source. The patient's CT head was negative. Plan: Monitor closely in observation IV fluids If patient has diarrhea we will check stools for C. difficile Follow-up blood cultures (3) Hypokalemia Conclusion/Plan: resolved The patient is hypokalemic on presentation with a potassium of 3.3. This is likely secondary to her nausea and ongoing sepsis. The patient will be given potassium replacement and we will continue to monitor her potassium. (4) Hyponatremia Conclusion/Plan: resolved Patient presents with hyponatremia as her sodium is 132. The patient appears to have hypovolemic hyponatremia as she has dry mucous membranes. Patient likely has hyponatremia secondary to ongoing sepsis which is caused dehydration. Patient will be given IV fluids and will continue to monitor her sodium. (5) History of bilateral knee replacement Conclusion/Plan: 11/13. There is no erythema, swelling, warm or pain on her left knee or bilateral of her knee. It seems stable. The patient does have history of bilateral knee replacements with septic joint on the right knee. Although the patient has completed both IV and oral treatment for this septic joint along with I&D given her presentation with what appears to be early sepsis we will need to monitor closely for recurrence of septic joint. Patient has not been started on antibiotics as we will await blood cultures and hope to find source of this ongoing sepsis. (6) HTN (hypertension) Conclusion/Plan: stable. Patient is a history of hypertension and blood pressure is elevated on presentation. Although the patient appears to be borderline septic with tachycardia, tachypnea, leukocytosis and low-grade fever we will continue the patient's home dose of antihypertensive. We will monitor her blood pressure closely if the patient's blood pressure begins to drop we will need to hold antihypertensives and continue with IV fluids.
[2017-11-14] MEDS: SODIUM CHLORIDE FLUSH 0.9% 10 ML SYRINGE IVP SCH ×3 (00:59→17:39)
[2017-11-14 05:06] LABS: BASOPHILS % (AUTO) 0.4 %; EOSINOPHILS # (AUTO) 0.1 10^3/uL (0.0-0.7); EOSINOPHILS % (AUTO) 1.1 %; HGB - HEMOGLOBIN 10.8 g/dL (12.0-16.0); LYMPHOCYTES # (AUTO) 1.8 10^3/uL (1.5-3.5); LYMPHOCYTES % (AUTO) 13.7 %; MEAN CORPUSCULAR HEMOGLOBIN 29.6 pg (27.0-31.0); MEAN CORPUSCULAR HGB CONC 32.7 g/dL (32.0-36.0); MEAN CORPUSCULAR VOLUME 90.6 fL (81.0-99.0); MONOCYTES # (AUTO) 0.8 10^3/uL (0.0-1.0); MONOCYTES % (AUTO) 6.2 %; NEUTROPHILS # (AUTO) 10.2 10^3/uL (1.5-6.6); NEUTROPHILS % (AUTO) 78.6 %; PLT - PLATELET COUNT 221 10^3/uL (130-450); RED BLOOD COUNT 3.65 10^6/uL (4.20-5.40); RED CELL DISTRIBUTION WIDTH 14.9 % (12.0-15.0)
[2017-11-14 05:17] LABS: ALBUMIN 2.6 g/dL (3.2-5.5); ALBUMIN/GLOBULIN RATIO 0.9 (1.0-2.2); BILIRUBIN,TOTAL 0.8 mg/dL (0.2-1.0); CALCIUM 8.1 mg/dL (8.5-10.3); CREATININE 0.7 mg/dL (0.4-1.0); PHOSPHORUS 1.9 mg/dL (2.5-4.6); TOTAL PROTEIN 5.5 g/dL (6.7-8.2)
[2017-11-14] MEDS: POLYETHYLENE GLYCOL 3350 17 GM PACKET PO SCH (07:40)
[2017-11-14] MEDS ORDERED: POTASSIUM CHLORIDE 20 MEQ TABLET PO ONE (07:58)
[2017-11-14] MEDS: LOSARTAN 50 MG TABLET PO SCH (09:34)
[2017-11-14] MEDS: NS W/20 MEQ KCL 1,000 ML IV SCH ×3 (09:35→21:16)
[2017-11-14] MEDS: ENOXAPARIN 40 MG/0.4 ML SYRINGE SUBQ SCH (09:35)
[2017-11-14] MEDS: VANCOMYCIN 125 MG CAPSULE PO SCH ×4 (09:35→21:14)
[2017-11-14] MEDS: FAMOTIDINE 20 MG TABLET PO SCH (09:35)
--- NOTE | 2017-11-14 13:54 | PROVIDER PROGRESS NOTE ---
Subjective - Prog Note Date Prog Note Date: 11/14/17 - Subjective Pt reports feeling: Improved Subjective: pt report she feel much better, no complaints. No chest pain, SOB, fever, chill , cough Current Medications - Current Medications Current Medications: Active Medications Acetaminophen (Tylenol) 650 mg PO Q4HR PRN PRN Reason: Pain 1 to 4 Last Admin: 11/13/17 01:21 Dose: 650 mg Enoxaparin Sodium (Lovenox) 40 mg SUBQ DAILY [facility] Last Admin: 11/14/17 09:35 Dose: 40 mg Famotidine (Pepcid) 20 mg PO DAILY [facility] Last Admin: 11/14/17 09:35 Dose: 20 mg Potassium Chloride/Sodium Chloride (Normal Saline 0.9% W/20 Meq Kcl) 1,000 mls @ 75 mls/hr IV .[id number] [facility] Last Admin: 11/14/17 09:35 Dose: 75 mls/hr Ibuprofen (Motrin) 600 mg PO Q6HR PRN PRN Reason: Pain 1 to 4 Losartan Potassium (Cozaar) 100 mg PO DAILY [facility] Last Admin: 11/14/17 09:34 Dose: 100 mg Ondansetron HCl (Zofran Inj) 4 mg IVP Q6HR PRN PRN Reason: Nausea / Vomiting Polyethylene Glycol (Miralax) 17 gm PO DAILY [facility] Last Admin: 11/14/17 07:40 Dose: Not Given Prochlorperazine Edisylate (Compazine Inj) 10 mg IVP Q6HR PRN PRN Reason: Nausea / Vomiting Promethazine HCl (Phenergan Inj) 25 mg IM Q6HR PRN PRN Reason: Nausea / Vomiting Sodium Chloride (Normal Saline Flush 0.9%) 10 ml IVP PRN PRN PRN Reason: NEEDED PER PROVIDER ORDERS Sodium Chloride (Normal Saline Flush 0.9%) 10 ml IVP 0100,0900,1700 [facility] Last Admin: 11/14/17 07:41 Dose: Not Given Vancomycin HCl (Vancocin) 125 mg PO QID [facility] Last Admin: 11/14/17 12:50 Dose: 125 mg Losartan Potassium 100 mg PO DAILY 02/22/16 Objective - Vital Signs/Intake & Output Reviewed Vital Signs: Yes Vital Signs: Vital Signs x48h Temp Pulse Resp BP Pulse Ox 11/14/17 07:24 36.6 C 75 19 143/46 H 98 Intake & Output: Intake & Output 11/11/17 11/12/17 11/13/17 11/14/17 23:59 23:59 23:59 23:59 Intake Total 1800 1375 Output Total 600 Balance 1200 1375 - Objective General Appearance: positive: No acute distress, Alert. negative: Lethargic Eyes Bilateral: positive: Normal inspection, PERRL, No lid inflammation, Conjunctivae nml ENT: positive: ENT inspection nml, Pharynx nml, No signs of dehydration. negative: Purulent nasal drainage, Pharyngeal erythema, Oral lesions Neck: positive: Nml inspection, Thyroid nml, No JVD, Trachea midline. negative : Thyromegaly, Lymphadenopathy (R), Lymphadenopathy (L), Stiff neck, Carotid bruit, Swelling/bruising, Tracheal deviation Respiratory: positive: Chest non-tender, No respiratory distress, Breath sounds nml. negative: Wheezes, Rales, Rhonchi Cardiovascular: positive: Regular rate & rhythm, No murmur, No gallop. negative : Irregularly irregular, Extrasystoles, Tachycardia, Bradycardia, JVD present, Systolic murmur, Diastolic murmur Peripheral Pulses: 2+ Radial (R), 2+ Radial (L), 2+ Dorsalis pedis (R), 2+ Dorsalis pedis (L) Abdomen: positive: Non-tender, No organomegaly, Nml bowel sounds, No distention. negative: Tenderness, Guarding, Rebound Back: positive: Nml inspection. negative: CVA tenderness (R), CVA tenderness (L ) Skin: positive: Color nml, No rash, Warm, Dry. negative: Cyanosis, Diaphoresis , Pallor Extremities: positive: Non-tender, Full ROM, Nml appearance. negative: Calf tenderness, Joint swelling, Dolores's sign/cords Neurologic/Psychiatric: positive: Oriented x3, Motor nml, Sensation nml, Mood/ affect nml. negative: Weakness, Sensory loss, Facial droop, Slurred/abnml speech, Depressed mood/affect - Lab Results Fish Bones: 11/14/17 04:45 11/14/17 04:45 Other Labs: Lab Results x24hrs 11/14/17 11/14/17 Range/Units 04:45 04:45 WBC 13.0 H (4.8-10.8) x10^3/uL RBC 3.65 L (4.20-5.40) 10^6/uL Hgb 10.8 L (12.0-16.0) g/dL Hct 33.0 L (37.0-47.0) % MCV 90.6 (81.0-99.0) fL MCH 29.6 (27.0-31.0) pg MCHC 32.7 (32.0-36.0) g/dL RDW 14.9 (12.0-15.0) % Plt Count 221 (130-450) 10^3/uL MPV 7.0 L (7.9-10.8) fL Neut # (Auto) 10.2 H (1.5-6.6) 10^3/uL Lymph # (Auto) 1.8 (1.5-3.5) 10^3/uL [place] # (Auto) 0.8 (0.0-1.0) 10^3/uL Eos # (Auto) 0.1 (0.0-0.7) 10^3/uL Baso # (Auto) 0.0 (0.0-0.1) 10^3/uL Absolute Nucleated RBC 0.01 x10^3/uL Nucleated RBC % 0.0 /100WBC Sodium 139 (135-145) mmol/L Potassium 3.4 L (3.5-5.0) mmol/L Chloride 112 H (101-111) mmol/L Carbon Dioxide 23 (21-32) mmol/L Anion Gap 4.0 L (6-13) BUN 16 (6-20) mg/dL Creatinine 0.7 (0.4-1.0) mg/dL Estimated GFR (MDRD) 81 L (>89) Glucose 110 H (70-100) mg/dL Calcium 8.1 L (8.5-10.3) mg/dL Phosphorus 1.9 L (2.5-4.6) mg/dL Magnesium 2.0 (1.7-2.8) mg/dL Total Bilirubin 0.8 (0.2-1.0) mg/dL AST 11 (10-42) IU/L ALT 10 (10-60) IU/L Alkaline Phosphatase 53 (42-121) IU/L Total Protein 5.5 L (6.7-8.2) g/dL Albumin 2.6 L (3.2-5.5) g/dL Globulin 2.9 (2.1-4.2) g/dL Albumin/Globulin Ratio 0.9 L (1.0-2.2) ABX Reporting Has patient been on IV antibiotics over the past 48 hours?: Yes Assessment/Plan - Problem List (1) C. difficile diarrhea Impression: Conclusion/Plan: 11/14 pt's WBC go down to 13 from 21. Pt has no abdominal pain, N/V/D. continue PO vancomycin, plan d/c tomorrow and follow up ID Dr. Wall. 11/13 pt had hx of diarrhea with C.Diff, this is the third time she had diarrhea. WBC is continue to have high at 21.3, higher than WBC 20.3 on admission. The test come back it is positive for C.diff. I called Dr. Wall's office. Dr. London called me back. He recommend to continue to use PO vancomycin, and follow Dr. Wall's office on next week. PO vancomycin 125mg QID The patient has a history of recurrent C. difficile and her presentation today is very suspicious for early C. difficile infection. Although the patient has not started to have diarrhea she is having systemic symptoms which suggest that she has an infection. The patient has a leukocytosis of 20,000 with low-grade fever and lethargy. The patient is also tachypneic suggesting that she may be headed towards sepsis. The patient is having abdominal cramping and feels similar to when she did have her most recent C. difficile infection. The patient has now been off of vancomycin oral for 1 month. Plan: Monitor for diarrhea and send stool for C. difficile if patient has diarrhea Contact Dr. Wall if the patient does have positive C. difficile as he had told the patient that he did not want her to receive vancomycin in the future. Dr. Wall's phone number is [phone]. (2) Decreased level of consciousness Conclusion/Plan: stable, resolved 11/13 resolved. pt is alert and oriented, and ate her breakfast. The patient presented with decreased level of consciousness, generalized weakness, decreased energy, decreased appetite, nausea, abdominal cramping and fever. The patient's decreased level of consciousness appears to be secondary to sepsis. The patient's white blood cell count is elevated at 20,000 and she had low-grade fever on presentation. The patient had a negative chest x-ray and urine analysis. Given the patient's history of Clostridium difficile infection it is very likely that the patient has a brewing C. difficile infection but has not yet began having diarrhea. Her symptoms appear to be systemic therefore it is felt that the patient needs to be kept in observation for sepsis with unknown source. The patient's CT head was negative. Plan: Monitor closely in observation IV fluids If patient has diarrhea we will check stools for C. difficile Follow-up blood cultures (3) Hypokalemia Conclusion/Plan: resolved The patient is hypokalemic on presentation with a potassium of 3.3. This is likely secondary to her nausea and ongoing sepsis. The patient will be given potassium replacement and we will continue to monitor her potassium. (4) Hyponatremia Conclusion/Plan: resolved Patient presents with hyponatremia as her sodium is 132. The patient appears to have hypovolemic hyponatremia as she has dry mucous membranes. Patient likely has hyponatremia secondary to ongoing sepsis which is caused dehydration. Patient will be given IV fluids and will continue to monitor her sodium. (5) History of bilateral knee replacement Conclusion/Plan: 11/13. There is no erythema, swelling, warm or pain on her left knee or bilateral of her knee. It seems stable. The patient does have history of bilateral knee replacements with septic joint on the right knee. Although the patient has completed both IV and oral treatment for this septic joint along with I&D given her presentation with what appears to be early sepsis we will need to monitor closely for recurrence of septic joint. Patient has not been started on antibiotics as we will await blood cultures and hope to find source of this ongoing sepsis. (6) HTN (hypertension) Conclusion/Plan: stable. Patient is a history of hypertension and blood pressure is elevated on presentation. Although the patient appears to be borderline septic with tachycardia, tachypnea, leukocytosis and low-grade fever we will continue the patient's home dose of antihypertensive. We will monitor her blood pressure closely if the patient's blood pressure begins to drop we will need to hold antihypertensives and continue with IV fluids.
[2017-11-14] MEDS: NEUTRA-PHOS 250 MG TABLET PO SCH (21:14)
[2017-11-15] MEDS: SODIUM CHLORIDE FLUSH 0.9% 10 ML SYRINGE IVP SCH ×2 (00:34→09:32)
[2017-11-15 06:14] LABS: BASOPHILS % (AUTO) 0.5 %; EOSINOPHILS # (AUTO) 0.2 10^3/uL (0.0-0.7); EOSINOPHILS % (AUTO) 2.2 %; HGB - HEMOGLOBIN 10.6 g/dL (12.0-16.0); LYMPHOCYTES # (AUTO) 2.1 10^3/uL (1.5-3.5); LYMPHOCYTES % (AUTO) 27.8 %; MEAN CORPUSCULAR HEMOGLOBIN 29.8 pg (27.0-31.0); MEAN CORPUSCULAR VOLUME 90.3 fL (81.0-99.0); MONOCYTES # (AUTO) 0.6 10^3/uL (0.0-1.0); MONOCYTES % (AUTO) 8.5 %; NEUTROPHILS # (AUTO) 4.7 10^3/uL (1.5-6.6); PLT - PLATELET COUNT 228 10^3/uL (130-450); RED BLOOD COUNT 3.55 10^6/uL (4.20-5.40); RED CELL DISTRIBUTION WIDTH 14.8 % (12.0-15.0); WHITE BLOOD COUNT 7.6 x10^3/uL (4.8-10.8)
[2017-11-15 06:26] LABS: ALBUMIN 2.8 g/dL (3.2-5.5); BILIRUBIN,TOTAL 0.7 mg/dL (0.2-1.0); CALCIUM 8.2 mg/dL (8.5-10.3); CREATININE 0.7 mg/dL (0.4-1.0); MAGNESIUM 1.8 mg/dL (1.7-2.8); PHOSPHORUS 2.5 mg/dL (2.5-4.6); TOTAL PROTEIN 5.6 g/dL (6.7-8.2)
[2017-11-15 07:40] VITALS: BP 154/67
[2017-11-15] MEDS: NEUTRA-PHOS 250 MG TABLET PO SCH ×2 (09:30→12:13)
[2017-11-15] MEDS: FAMOTIDINE 20 MG TABLET PO SCH (09:31)
[2017-11-15] MEDS: VANCOMYCIN 125 MG CAPSULE PO SCH (09:31)
[2017-11-15] MEDS: POLYETHYLENE GLYCOL 3350 17 GM PACKET PO SCH (09:32)
[2017-11-15] MEDS: ENOXAPARIN 40 MG/0.4 ML SYRINGE SUBQ SCH (09:32)
[2017-11-15] MEDS: LOSARTAN 50 MG TABLET PO SCH (09:40)
--- NOTE | 2017-11-15 11:26 | Discharge Plan ---
Discharge Plan Disposition: Home, Self Care Condition: Poor Prescriptions: Vancomycin HCl [Firvanq] 125 mg PO QID 14 Days #280 soln.recon Vancomycin HCl [Firvanq] 125 mg PO DAILY #35 soln.recon Vancomycin HCl [Firvanq] 125 mg PO BID #70 soln.recon Diet: Regular Activity Restrictions: Activity as Tolerated Shower Restrictions: No (fall precaution) Instruction Topics: Clostridium Difficile Infec, Vancomycin oral solution Additional Instructions or Follow Up instructions: You may follow up your infection disease doctor in one week, and follow up your PCP in two weeks. Should your symptoms return or worsen, you may present ER or call 911 for help. No Smoking: If you smoke, Please STOP! Call for help. Follow-up with: Ronald Pena MD [Primary Care Provider] -
--- NOTE | 2017-11-15 11:31 | DISCHARGE SUMMARY ---
Discharge Summary Discharge Date: 11/15/17 Discharging Provider: DUDLEY Primary Care Provider: Dr. Pena Condition at Discharge: Poor Discharge Disposition: 01 Home, Self Care Discharge Facility Name: home - DIAGNOSES Admission Diagnoses: (1) Sepsis (2) Decreased level of consciousness (3) Hypokalemia (4) Hyponatremia (5) History of bilateral knee replacement (6) History of Clostridium difficile infection (7) HTN (hypertension) Discharge Diagnoses with Status of Each Condition: (1) C. difficile diarrhea no more diarrhea, no N/V or abdominal pain. WBC is normal. pt is prescribed four weeks PO vancomycin according to new protocol. I called pt's ID Dr. Wall's office,and recommended pt to have PO vancomycin, follow up ID doctor's office in one week (2) Decreased level of consciousness resolved (3) Hypokalemia resolved (4) Hyponatremia resolved (5) History of bilateral knee replacement no pain, no warm or swelling. stable (6) HTN (hypertension) stable - HPI History of Present Illness: refer from Dr. Waldrop's HPI for pt as the following: Patient is an 82-year-old female with a past medical history significant for hypertension, osteoarthritis with bilateral knee replacements and recurrent C. difficile infection who presented to the emergency department with a chief complaint of decreased level of consciousness. The patient was admitted to [facility] about 5 months ago at which time she was found to have an infected knee joint. She was sent to [facility] where she underwent an I&D and was placed on IV antibiotics. The patient received 7 weeks of IV antibiotics to complete treatment for her septic joint. The patient was then continued on p.o. Keflex. After completing treatment with IV antibiotics the patient developed diarrhea which was diffuse and she was tested for C. difficile and test was positive. Patient was then placed on Flagyl which she took for 10 days. After completing treatment with Flagyl the patient seems to be doing well but about a week later she began developing abdominal cramping and diffuse diarrhea. The patient was found to have C. difficile and admitted to [facility] on 08/18/2017. She was hospitalized for 2 days and discharged home on oral vancomycin. She was also continued on oral Keflex. The patient was followed by infectious disease at [facility] Dr. Wall. The patient's oral vancomycin and Keflex were stopped about 1 month ago. The patient states that over the last month she has been feeling well and has had no further episodes of diarrhea. She also states that her right knee has not had any swelling or pain. She has been working with physical therapy to improve her range of motion in bilateral lower extremities. According to the patient's the patient was doing well until yesterday. He states that last night the patient did not sleep well and was agitated throughout the night. He states that this morning she had to take him to an appointment in [place] and drove. When she returned home the patient prepared breakfast but then sat at the table and had no appetite. He states that she vomited and then had some incontinence of urine while at the table. He states that she was very lethargic. He states that she has been sleeping off and on for most of the day. The patient has had no energy, generalized weakness and lethargy throughout the day. He states this evening she she continued to be very drowsy and he became concerned therefore he decided to bring the patient to the emergency department. According to the patient she has been having abdominal cramping since later this afternoon. She also states that she is having body aches and had a fever prior to coming to the emergency department. The patient denies any chills, diarrhea, cough, urinary urgency, urinary frequency, dysuria , seizures, focal neurologic deficits or any neck stiffness. The patient also denies any new rashes or swelling in her joints. The patient states that she did have a fall 2 nights ago when she lost her balance getting up from a chair and fell and hit her head on a cabinet. The patient denies having had recurrent falls and states that she was not having any of the above symptoms at that time. Patient denies any headaches, blurred vision, runny nose, sore throat, nasal congestion, difficulty swallowing, chest pain, shortness of air, orthopnea, PND , increased lower extremity swelling, back pain, recent unintentional weight loss, hair loss, polyuria, polydipsia, night sweats. On arrival of EMS to the patient's home the patient was found to be febrile with a temperature of 100.4 Fahrenheit. On presentation to the emergency department the patient's temperature was 37.2, she was tachycardic with a heart rate of 98, she was hypertensive with a blood pressure of 172/68 and was significantly tachypneic with respiratory rate in the high 20s. The patient was saturating well on room air but appeared quite ill and was very lethargic. The patient underwent routine lab work which showed a leukocytosis of 20.2 with a left shift. Patient was hyponatremic with a sodium of 132 and hypokalemic with a potassium of 3.3. Patient's glucose was elevated at 158 and her bilirubin was slightly elevated at 1.2. The patient's UA was negative. Given her decreased mentation the patient also underwent a CT of her head which showed no acute intracranial process. There was a small left frontal scalp hematoma without calvarial fracture. The patient's chest x-ray showed no acute intrathoracic plain film abnormality. The patient did undergo an EKG which showed sinus rhythm without any ST elevations or ischemic changes. Given the patient's continued lethargy, low-grade fever, tachypnea, tachycardia, leukocytosis and just ill appearance it was felt that the patient has early sepsis and needs to be monitored closely overnight in observation. Blood cultures were obtained in the emergency department and will need to be followed up. - ALLERGIES Allergies/Adverse Reactions: Allergies Allergy/AdvReac Type Severity Reaction Status Date / Time naproxen AdvReac Unknown Verified 08/18/17 09:18 - MEDICATIONS Home Medications: Ambulatory Orders Medication Instructions Recorded Confirmed Losartan Potassium 100 mg PO DAILY 02/22/16 11/13/17 Vancomycin HCl [Firvanq] 125 mg PO BID #70 soln.recon 11/15/17 Vancomycin HCl [Firvanq] 125 mg PO DAILY #35 soln.recon 11/15/17 Vancomycin HCl [Firvanq] 125 mg PO QID 14 Days #280 11/15/17 soln.recon - PHYSICAL EXAM AT DISCHARGE General Appearance: positive: No acute distress, Alert. negative: Lethargic Eyes Bilateral: positive: Normal inspection, PERRL, No lid inflammation, Conjunctivae nml ENT: positive: ENT inspection nml, Pharynx nml, No signs of dehydration. negative: Purulent nasal drainage, Pharyngeal erythema, Oral lesions Neck: positive: Nml inspection, Thyroid nml, No JVD, Trachea midline. negative : Thyromegaly, Lymphadenopathy (R), Lymphadenopathy (L), Stiff neck, Swelling/ bruising, Tracheal deviation Respiratory: positive: Chest non-tender, No respiratory distress, Breath sounds nml. negative: Wheezes, Rales, Rhonchi Cardiovascular: positive: Regular rate & rhythm, No murmur, No gallop. negative : Irregularly irregular, Extrasystoles, Tachycardia, Bradycardia, JVD present, Systolic murmur, Diastolic murmur Peripheral Pulses: positive: 2+ Abdomen: positive: Non-tender, No organomegaly, Nml bowel sounds, No distention. negative: Tenderness, Guarding, Rebound Back: positive: Nml inspection. negative: CVA tenderness (R), CVA tenderness (L ) Skin: positive: Color nml, No rash, Warm, Dry. negative: Cyanosis, Diaphoresis , Pallor Extremities: positive: Non-tender, Full ROM, Nml appearance. negative: Calf tenderness, Joint swelling, Dolores's sign/cords Neurologic/Psychiatric: positive: Oriented x3, Motor nml, Sensation nml, Mood/ affect nml. negative: Weakness, Sensory loss, Facial droop, Slurred/abnml speech, Depressed mood/affect - LABS Result Diagrams: 11/15/17 05:51 11/15/17 05:51 - FOLLOW UP Follow Up: You may follow up your infection disease doctor in one week, and follow up your PCP in two weeks. Should your symptoms return or worsen, you may present ER or call 911 for help. - TIME SPENT Time Spent in Discharge (Minutes): 45
== END 2017-11-15 14:09 | disposition home or self-care (01) | DRG 372 ==
LOC: EDUNIT# → ED 20:49 → MS3 23:08 → OBSVTOIN 11-13 12:14
PROVIDERS: ADMIT Internal Medicine; ATTEND Nurse Practitioner Gerontology
DX: A41.9 Sepsis, unspecified organism (principal); A04.71 Enterocolitis due to Clostridium difficile, recurrent; R53.1 Weakness; E87.1 Hypo-osmolality and hyponatremia; R41.0 Disorientation, unspecified; E87.6 Hypokalemia; E86.0 Dehydration; E86.1 Hypovolemia; I10 Essential (primary) hypertension; K21.9 Gastro-esophageal reflux disease without esophagitis; Z87.891 Personal history of nicotine dependence; Z86.19 Personal history of other infectious and parasitic diseases; S00.03XA Contusion of scalp, initial encounter; W07.XXXA Fall from chair, initial encounter; Z96.653 Presence of artificial knee joint, bilateral
CPT/HCPCS: 36415; 51701; 70450; 71046; 76700; 80053; 81001; 81003; 82607; 82746; 83605; 83630; 83690; 83735; 84100; 84443; 84484; 85025; 87040; 87045; 87046; 87086; 87493; 93005; 96361; 96365; 96372; 99284; 99285

== ENCOUNTER 2018-02-24 09:12 | Outpatient (CLI) | payer MEDICARE, OTHER ==
[2018-02-24 17:27] LABS: BASOPHILS % (AUTO) 0.6 %; EOSINOPHILS # (AUTO) 0.1 10^3/uL (0.0-0.7); EOSINOPHILS % (AUTO) 2.1 %; LYMPHOCYTES # (AUTO) 1.7 10^3/uL (1.5-3.5); LYMPHOCYTES % (AUTO) 28.1 %; MEAN CORPUSCULAR HEMOGLOBIN 29.5 pg (27.0-31.0); MEAN CORPUSCULAR HGB CONC 33.2 g/dL (32.0-36.0); MEAN CORPUSCULAR VOLUME 88.9 fL (81.0-99.0); MEAN PLATELET VOLUME 7.4 fL (7.9-10.8); MONOCYTES # (AUTO) 0.5 10^3/uL (0.0-1.0); MONOCYTES % (AUTO) 8.9 %; NEUTROPHILS # (AUTO) 3.6 10^3/uL (1.5-6.6); NEUTROPHILS % (AUTO) 60.3 %; PLT - PLATELET COUNT 266 10^3/uL (130-450); RED BLOOD COUNT 4.42 10^6/uL (4.20-5.40); RED CELL DISTRIBUTION WIDTH 14.1 % (12.0-15.0); WHITE BLOOD COUNT 5.9 x10^3/uL (4.8-10.8)
[2018-02-24 17:52] LABS: BUN - BLOOD UREA NITROGEN 23 mg/dL (6-20); CALCIUM 9.3 mg/dL (8.5-10.3); CARBON DIOXIDE - CO2 30 mmol/L (21-32); CHLORIDE 104 mmol/L (101-111); CHOL/HDL RATIO 3.4 (<4.4); CHOLESTEROL 240 mg/dL; CREATININE 0.8 mg/dL (0.4-1.0); GFR - MDRD 69 (>89); GLUCOSE 105 mg/dL (70-100); HDL CHOLESTEROL 70 mg/dL; LDL CHOLESTEROL,CALCULATED 151 mg/dL; LDL/HDL RATIO 2.2 (<4.4); SODIUM 139 mmol/L (135-145); VLDL CHOLESTEROL 19 mg/dL
== END 2018-02-24 09:13 | disposition home or self-care (01) ==
LOC: LAB.F 09:12
PROVIDERS: ATTEND Internal Medicine
DX: J30.9 Allergic rhinitis, unspecified (principal); E78.5 Hyperlipidemia, unspecified; M79.661 Pain in right lower leg; L03.90 Cellulitis, unspecified; K21.9 Gastro-esophageal reflux disease without esophagitis; R73.01 Impaired fasting glucose; M25.561 Pain in right knee; L98.9 Disorder of the skin and subcutaneous tissue, unspecified; I10 Essential (primary) hypertension
CPT/HCPCS: 36415; 80048; 80061; 83721; 85025

== ENCOUNTER 2018-03-21 11:39 | Outpatient (CLI) | payer MEDICARE, OTHER ==
--- NOTE | 2018-03-22 08:51 | Mammography Report ---
Reason: SCREENING MAMMO Procedure Date: 03/21/2018 Accession Number: [id number] / [id number] Procedure: BEKAH - Screening Mammo w/Blu CPT Code: FULL RESULT: EXAM: Screening Mammo w/Blu DATE: 03/21/2018 12:11 PM CLINICAL HISTORY: Screening encounter. History of early menses and family history of breast cancer in the mother at age 72 and an aunt at age 74. TECHNIQUE: Bilateral CC and MLO views were obtained. COMPARISON: 03/17/2016 through 03/09/2011. FINDINGS: The breasts demonstrate diffuse fatty replacement bilaterally. Typically benign large rodlike calcifications are identified in both breasts. No suspicious masses, clustered microcalcifications, or regions of architectural distortion are identified. IMPRESSION: Benign findings RECOMMENDATION: Routine annual screening unless otherwise clinically indicated. BIRADS CATEGORY 2: Benign findings STANDARD QUALIFYING STATEMENTS: 1. This examination was not reviewed with the aid of Computer-Aided Detection (CAD). 2. A negative or benign imaging report should not preclude biopsy if clinically suspicious findings are present. 3. Dense breasts may obscure an underlying neoplasm. 4. This examination was reviewed with the aid of 3D breast imaging (tomosynthesis).
== END 2018-03-21 11:40 | disposition home or self-care (01) ==
LOC: DI 11:39
DX: Z12.31 Encounter for screening mammogram for malignant neoplasm of breast (principal); Z80.3 Family history of malignant neoplasm of breast
CPT/HCPCS: 77063; 77067

== ENCOUNTER 2018-06-23 08:00 | Outpatient (CLI) | payer MEDICARE, OTHER | END 2018-06-23 23:59 | disposition home or self-care (01) | LOC: LAB.R 08:00 | PROVIDERS: ATTEND Internal Medicine | DX: L03.90 Cellulitis, unspecified (principal) | CPT/HCPCS: 87070; 87077; 87181; 87205 ==

== ENCOUNTER 2019-02-24 10:53 | Outpatient (CLI) | payer MEDICARE, OTHER ==
[2019-02-24 18:22] LABS: BUN - BLOOD UREA NITROGEN 22 mg/dL (6-20); CALCIUM 9.5 mg/dL (8.5-10.3); CARBON DIOXIDE - CO2 30 mmol/L (21-32); CHLORIDE 105 mmol/L (101-111); CHOL/HDL RATIO 3.4 (<4.4); CHOLESTEROL 219 mg/dL; CREATININE 0.9 mg/dL (0.4-1.0); GFR - MDRD 60 (>89); GLUCOSE 121 mg/dL (70-100); HDL CHOLESTEROL 64 mg/dL; LDL CHOLESTEROL,CALCULATED 136 mg/dL; LDL/HDL RATIO 2.1 (<4.4); SODIUM 142 mmol/L (135-145); VLDL CHOLESTEROL 19 mg/dL
== END 2019-02-24 10:54 | disposition home or self-care (01) ==
LOC: LAB.S 10:53
PROVIDERS: ATTEND Internal Medicine
DX: J30.9 Allergic rhinitis, unspecified (principal); K21.9 Gastro-esophageal reflux disease without esophagitis; E78.5 Hyperlipidemia, unspecified; R73.01 Impaired fasting glucose; M25.512 Pain in left shoulder; M25.511 Pain in right shoulder; I87.2 Venous insufficiency (chronic) (peripheral); I10 Essential (primary) hypertension
CPT/HCPCS: 36415; 80048; 80061; 83721

== ENCOUNTER 2019-03-14 07:00 | Outpatient (CLI) | payer MEDICARE, OTHER ==
[2019-03-14 14:54] LABS: BILIRUBIN,URINE NEGATIVE (NEGATIVE); CLARITY,URINE CLEAR (CLEAR); GLUCOSE, URINE (UA) NEGATIVE (NEGATIVE); KETONES,URINE (UA) NEGATIVE (NEGATIVE); LEUKOCYTE ESTERASE, URINE SMALL (NEGATIVE); NITRITE,URINE NEGATIVE (NEGATIVE); OCCULT BLOOD,URINE NEGATIVE (NEGATIVE); PH,URINE 6.5 PH (5.0-7.5); PROTEIN,URINE NEGATIVE (NEGATIVE); UROBILINOGEN,URINE 0.2 (NORMAL) E.U./dL (NORMAL)
[2019-03-14 15:12] LABS: RBC,URINE None Seen /HPF (0-5)
[2019-03-14 15:13] LABS: BACTERIA,URINE Many /HPF (None Seen); SQUAMOUS EPITHELIAL CELL,UR NONE SEEN (<= Few)
== END 2019-03-14 23:59 | disposition home or self-care (01) ==
LOC: LAB.R 07:00
PROVIDERS: ATTEND Internal Medicine
DX: R30.0 Dysuria (principal)
CPT/HCPCS: 81001; 81003; 87086; 87181

== ENCOUNTER 2020-03-01 09:32 | Outpatient (CLI) | payer MEDICARE, OTHER ==
[2020-03-01 13:35] LABS: BILIRUBIN,URINE NEGATIVE (NEGATIVE); GLUCOSE, URINE (UA) NEGATIVE (NEGATIVE); KETONES,URINE (UA) NEGATIVE (NEGATIVE); LEUKOCYTE ESTERASE, URINE MODERATE (NEGATIVE); NITRITE,URINE POSITIVE (NEGATIVE); OCCULT BLOOD,URINE NEGATIVE (NEGATIVE); PH,URINE 6.5 PH (5.0-7.5); PROTEIN,URINE NEGATIVE (NEGATIVE); UROBILINOGEN,URINE 0.2 (NORMAL) E.U./dL (NORMAL)
[2020-03-01 13:42] LABS: CALCIUM 9.3 mg/dL (8.5-10.3); CREATININE 0.8 mg/dL (0.4-1.0)
[2020-03-01 13:48] LABS: BACTERIA,URINE Many /HPF (None Seen); CLARITY,URINE CLEAR (CLEAR); RBC,URINE None Seen /HPF (0-5); SQUAMOUS EPITHELIAL CELL,UR FEW Squamous (<= Few)
[2020-03-02 07:34] LABS: HEMOGLOBIN A1c% 6.4 % (4.27-6.07)
== END 2020-03-01 09:33 | disposition home or self-care (01) ==
LOC: LAB.S 09:32
PROVIDERS: ATTEND Internal Medicine
DX: I10 Essential (primary) hypertension (principal); R73.01 Impaired fasting glucose; R30.0 Dysuria
CPT/HCPCS: 36415; 80048; 81001; 83036; 87086; 87181

== ENCOUNTER 2020-03-28 12:19 | Outpatient (CLI) | payer MEDICARE, OTHER ==
[2020-03-28 14:41] LABS: HEMOGLOBIN A1c% 6.4 % (4.27-6.07)
== END 2020-03-28 12:20 | disposition home or self-care (01) ==
LOC: LAB.S 12:19
PROVIDERS: ATTEND Internal Medicine
DX: Z00.00 Encounter for general adult medical examination without abnormal findings (principal); J30.9 Allergic rhinitis, unspecified; L03.90 Cellulitis, unspecified; I87.2 Venous insufficiency (chronic) (peripheral); E11.9 Type 2 diabetes mellitus without complications; K21.9 Gastro-esophageal reflux disease without esophagitis; E78.5 Hyperlipidemia, unspecified; I10 Essential (primary) hypertension; N39.0 Urinary tract infection, site not specified
CPT/HCPCS: 36415; 83036

== ENCOUNTER 2020-07-09 15:41 | Outpatient (CLI) | payer MEDICARE, OTHER ==
[2020-07-09 20:07] LABS: BASOPHILS # (AUTO) 0.1 10^3/uL (0.0-0.1); BASOPHILS % (AUTO) 0.6 %; EOSINOPHILS # (AUTO) 0.8 10^3/uL (0.0-0.7); EOSINOPHILS % (AUTO) 8.1 %; HGB - HEMOGLOBIN 12.9 g/dL (12.0-16.0); LYMPHOCYTES # (AUTO) 2.2 10^3/uL (1.5-3.5); LYMPHOCYTES % (AUTO) 23.8 %; MEAN CORPUSCULAR HEMOGLOBIN 29.9 pg (27.0-31.0); MEAN CORPUSCULAR HGB CONC 31.5 g/dL (32.0-36.0); MEAN CORPUSCULAR VOLUME 95.1 fL (81.0-99.0); MEAN PLATELET VOLUME 9.6 fL (7.9-10.8); MONOCYTES # (AUTO) 0.7 10^3/uL (0.0-1.0); MONOCYTES % (AUTO) 7.2 %; NEUTROPHILS # (AUTO) 5.6 10^3/uL (1.5-6.6); NEUTROPHILS % (AUTO) 59.7 %; PLT - PLATELET COUNT 303 10^3/uL (130-450); RED BLOOD COUNT 4.31 10^6/uL (4.20-5.40); RED CELL DISTRIBUTION WIDTH 14.2 % (12.0-15.0); WHITE BLOOD COUNT 9.4 x10^3/uL (4.8-10.8)
[2020-07-09 20:10] LABS: BILIRUBIN,URINE NEGATIVE (NEGATIVE); CLARITY,URINE HAZY (CLEAR); GLUCOSE, URINE (UA) NEGATIVE (NEGATIVE); KETONES,URINE (UA) NEGATIVE (NEGATIVE); LEUKOCYTE ESTERASE, URINE TRACE (NEGATIVE); NITRITE,URINE NEGATIVE (NEGATIVE); OCCULT BLOOD,URINE NEGATIVE (NEGATIVE); PH,URINE 5.5 PH (5.0-7.5); PROTEIN,URINE NEGATIVE (NEGATIVE); UROBILINOGEN,URINE 0.2 (NORMAL) E.U./dL (NORMAL)
[2020-07-09 20:18] LABS: BACTERIA,URINE Rare /HPF (None Seen); RBC,URINE 0-5 /HPF (0-5); SQUAMOUS EPITHELIAL CELL,UR MOD Squamous (<= Few); WBC,URINE 0-3 /HPF (0-5)
[2020-07-09 20:19] LABS: CREATININE,URINE 165.8 mg/dL; MICROALBUMIN,URINE 0.5 mg/dL (0-300.0)
[2020-07-09 20:25] LABS: ESTIMATED AVERAGE GLUCOSE 137 mg/dL (70-100); HEMOGLOBIN A1c% 6.4 % (4.27-6.07)
[2020-07-09 20:35] LABS: BUN - BLOOD UREA NITROGEN 25 mg/dL (6-20); CALCIUM 9.7 mg/dL (8.5-10.3); CARBON DIOXIDE - CO2 26 mmol/L (21-32); CHLORIDE 105 mmol/L (101-111); CHOL/HDL RATIO 3.1 (<4.4); CHOLESTEROL 215 mg/dL; GFR - MDRD 53 (>89); GLUCOSE 102 mg/dL (70-100); HDL CHOLESTEROL 70 mg/dL; LDL CHOLESTEROL,CALCULATED 119 mg/dL; LDL/HDL RATIO 1.7 (<4.4); POTASSIUM 4.8 mmol/L (3.5-5.0); SODIUM 141 mmol/L (135-145); TRIGLYCERIDES 131 mg/dL; VLDL CHOLESTEROL 26 mg/dL
== END 2020-07-09 15:42 | disposition home or self-care (01) ==
LOC: LAB.S 15:41
PROVIDERS: ATTEND Internal Medicine
DX: E11.9 Type 2 diabetes mellitus without complications (principal); E78.5 Hyperlipidemia, unspecified; I10 Essential (primary) hypertension; R19.7 Diarrhea, unspecified; R35.1 Nocturia
CPT/HCPCS: 36415; 80048; 80061; 81001; 81003; 82043; 82570; 83036; 83721; 85025; 87086

== ENCOUNTER 2021-02-23 13:36 | Outpatient (CLI) | payer MEDICARE, OTHER | END 2021-02-23 13:37 | disposition EMS.NT | LOC: EMS 13:36 | DX: Z04.3 Encounter for examination and observation following other accident (principal) ==

== ENCOUNTER 2021-05-07 10:41 | Outpatient (CLI) | payer MEDICARE, OTHER ==
[2021-05-07 15:40] LABS: BUN - BLOOD UREA NITROGEN 31 mg/dL (6-20); CALCIUM 9.2 mg/dL (8.5-10.3); CARBON DIOXIDE - CO2 27 mmol/L (21-32); CHLORIDE 101 mmol/L (101-111); CHOL/HDL RATIO 3.6 (<4.4); CHOLESTEROL 215 mg/dL; CREATININE 1.1 mg/dL (0.4-1.0); GFR - MDRD 47 (>89); GLUCOSE 140 mg/dL (70-100); HDL CHOLESTEROL 59 mg/dL; LDL CHOLESTEROL,CALCULATED 134 mg/dL; LDL/HDL RATIO 2.3 (<4.4); SODIUM 136 mmol/L (135-145); TRIGLYCERIDES 109 mg/dL; VLDL CHOLESTEROL 22 mg/dL
[2021-05-08 17:14] LABS: ESTIMATED AVERAGE GLUCOSE 151 mg/dL (70-100); HEMOGLOBIN A1c% 6.9 % (4.27-6.07)
== END 2021-05-07 10:42 | disposition home or self-care (01) ==
LOC: LAB.S 10:41
PROVIDERS: ATTEND Internal Medicine
DX: E11.9 Type 2 diabetes mellitus without complications (principal); E78.5 Hyperlipidemia, unspecified; I10 Essential (primary) hypertension
CPT/HCPCS: 36415; 80048; 80061; 82043; 82570; 83036; 83721

== ENCOUNTER 2021-05-09 12:21 | Outpatient (CLI) | payer MEDICARE, OTHER ==
[2021-05-09 16:00] LABS: CREATININE,URINE 46.1 mg/dL; MICROALBUM/CREATININE RATIO,UR 4.3 ug/mg (<30.0); MICROALBUMIN,URINE 0.2 mg/dL (0-300.0)
== END 2021-05-09 12:22 | disposition home or self-care (01) ==
LOC: LAB.S 12:21
PROVIDERS: ATTEND Internal Medicine
DX: E11.9 Type 2 diabetes mellitus without complications (principal); E78.5 Hyperlipidemia, unspecified; I10 Essential (primary) hypertension
CPT/HCPCS: 82043; 82570

== ENCOUNTER 2021-08-12 12:50 | Outpatient (CLI) | payer MEDICARE, OTHER ==
--- NOTE | 2021-08-14 15:56 | Mammography Report ---
BILATERAL DIGITAL SCREENING MAMMOGRAM 3D/2D: 08/12/2021 CLINICAL: Routine screening. Family history of breast cancer. Comparison is made to exams dated: 03/21/2018 mammogram, 03/17/2016 mammogram, and 04/24/2014 mammogram - [facility]. The tissue of both breasts is predominantly fatty. There are benign diffuse calcifications in both breasts. No significant masses, calcifications, or other findings are seen in either breast. There has been no significant interval change. IMPRESSION: BENIGN There is no mammographic evidence of malignancy. A 1 year screening mammogram is recommended. This exam was interpreted at Station ID: [id number]. NOTE: For mammograms, a report in lay terms will be sent to the patient. Approximately 15% of breast malignancies will not be visualized mammographically. In the management of a palpable breast mass, a negative mammogram must not discourage biopsy of a clinically suspicious lesion. Electronically Signed By: Tripp Lees M.D. slc/penrad:08/12/2021 17:08:22 ACR BI-RADS Category 2: Benign Finding(s) 3342F PARENCHYMAL PATTERN: (F) - The breast(s) demonstrate(s) diffuse fatty replacement. BI-RADS CATEGORY: (2) - 2 RECOMMENDATION: (ANNUAL) - Recommend routine annual screening mammography. [id number] 1 year screening LATERALITY: (B)
== END 2021-08-12 12:51 | disposition home or self-care (01) ==
LOC: DI.S 12:50
PROVIDERS: ATTEND Internal Medicine
DX: Z12.31 Encounter for screening mammogram for malignant neoplasm of breast (principal); Z80.3 Family history of malignant neoplasm of breast

== ENCOUNTER 2021-08-25 11:08 | Emergency (ER) | payer MEDICARE, OTHER ==
[2021-08-25 11:47] LABS: BASOPHILS # (AUTO) 0.1 10^3/uL (0.0-0.1); BASOPHILS % (AUTO) 0.7 %; EOSINOPHILS # (AUTO) 0.1 10^3/uL (0.0-0.7); EOSINOPHILS % (AUTO) 1.9 %; HCT - HEMATOCRIT 39.6 % (37.0-47.0); HGB - HEMOGLOBIN 12.9 g/dL (12.0-16.0); LYMPHOCYTES # (AUTO) 1.7 10^3/uL (1.5-3.5); LYMPHOCYTES % (AUTO) 23.5 %; MEAN CORPUSCULAR HEMOGLOBIN 30.8 pg (27.0-31.0); MEAN CORPUSCULAR HGB CONC 32.6 g/dL (32.0-36.0); MEAN CORPUSCULAR VOLUME 94.5 fL (81.0-99.0); MEAN PLATELET VOLUME 9.1 fL (7.9-10.8); MONOCYTES # (AUTO) 0.6 10^3/uL (0.0-1.0); MONOCYTES % (AUTO) 8.6 %; NEUTROPHILS # (AUTO) 4.6 10^3/uL (1.5-6.6); PLT - PLATELET COUNT 264 10^3/uL (130-450); RED BLOOD COUNT 4.19 10^6/uL (4.20-5.40); RED CELL DISTRIBUTION WIDTH 12.9 % (12.0-15.0)
[2021-08-25] MEDS ORDERED: IOPAMIDOL-300 100 ML VIAL ONE (11:55)
[2021-08-25 11:58] LABS: ALBUMIN 4.1 g/dL (3.2-5.5); ALBUMIN/GLOBULIN RATIO 1.2 (1.0-2.2); BILIRUBIN,TOTAL 0.4 mg/dL (0.2-1.0); CALCIUM 9.4 mg/dL (8.5-10.3); CREATININE 1.1 mg/dL (0.4-1.0); POTASSIUM 3.9 mmol/L (3.5-5.0); TOTAL PROTEIN 7.5 g/dL (6.7-8.2)
--- NOTE | 2021-08-25 12:04 | ED Physician Documentation ---
PD HPI FOCAL NEURO - Stated complaint Stated Complaint: SLURRED SPEECH - Chief complaint Chief Complaint: Neuro - History obtained from History obtained from: Patient, Family - History of Present Illness Timing - onset: How many days ago (4) Timing - duration: Days (4) Timing - details: Abrupt onset Severity of deficit: Mild Weakness: No: Face, Arm, Hand, Leg, Foot, Right, Left Numbness: No: Face, Arm, Hand, Leg, Foot, Right, Left Associated symptoms: Headache (mild). No: Nausea / vomiting, Seizure, Syncope, Fall, Head injury, Chest pain, Neck pain, Back pain Contributing factors: negative: Anticoagulated, Vascular dz, Atrial fibrillation, Prosthetic heart valve Baseline status: positive: A&OX3, ambulatory, indep Similar symptoms before: Has not had sx before Recently seen: Not recently seen - Additional information Additional information: Patient is an 86-year-old female who presents to the emergency department complaining of slurred speech about 4 days ago. Lasted for about 40 minutes. Has not recurred since. She states she talked her doctor today who told her to come here. Review of Systems Ten Systems: 10 systems reviewed and negative Constitutional: denies: Fever, Chills Nose: denies: Rhinorrhea / runny nose, Congestion Throat: denies: Sore throat Cardiac: denies: Chest pain / pressure Respiratory: denies: Cough GI: denies: Abdominal Pain, Nausea, Vomiting, Diarrhea Skin: denies: Rash Musculoskeletal: denies: Neck pain, Back pain Neurologic: denies: Focal weakness, Numbness, Headache PD PAST MEDICAL HISTORY - Past Medical History Cardiovascular: Hypertension Respiratory: None Neuro: Other Endocrine/Autoimmune: None GI: GERD, Hiatal hernia, C.difficile : Incontinence HEENT: Other Psych: None Musculoskeletal: Osteoarthritis, Osteopenia Derm: None, Other - Past Surgical History Past Surgical History: Yes 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 HEENT: Tonsil/Adenoidectomy - Present Medications Home Medications: Ambulatory Orders Medication Instructions Recorded Confirmed Losartan Potassium 180 mg PO DAILY 02/22/16 11/20/20 Fexofenadine HCl 1 tab PO DAILY 07/18/18 11/20/20 Mupirocin 22 gm TP BID #1 applic 06/10/20 11/20/20 Amox/Clav 875/125 [Augmentin 1 each PO Q12H 7 Days #14 tablet 11/22/20 875/125 Tab] - Allergies Allergies/Adverse Reactions: Allergies Allergy/AdvReac Type Severity Reaction Status Date / Time naproxen AdvReac Unknown Verified 08/25/21 11:22 - Social History Does the pt smoke?: No Smoking Status: Former smoker Does the pt drink ETOH?: Yes Does the pt have substance abuse?: No - Immunizations Immunizations are current?: Yes - POLST Patient has POLST: No POLST Status: Full Code (with CPR but no incubation.) PD ED PE NORMAL - Vitals Vital signs reviewed: Yes - General General: Alert and oriented X 3, No acute distress - HEENT HEENT: Atraumatic, PERRL, Moist mucous membranes - Neck Neck: Supple, no meningeal sign - Cardiac Cardiac: RRR, Strong equal pulses - Respiratory Respiratory: No respiratory distress, Clear bilaterally - Abdomen Abdomen: Soft, Non tender, Non distended - Back Back: No spinal TTP - Derm Derm: Warm and dry - Extremities Extremities: No edema - Neuro Neuro: Alert and oriented X 3, 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 directory 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 2-12 intact, No motor deficit, No sensory deficit, Normal speech - Psych Psych: Normal mood, Normal affect NIHSS - Time Time: 11:35 - Level of Consciousness Level of consciousness: (0) Alert, Keenly responsive LOC Questions: (0) Answers both Q's correct LOC Commands: (0) Performs both correctly - Gaze Best Gaze: (0) Normal - Visual Visual: (0) No loss - Facial Palsy Facial Palsy: (0) Normal, symmetrical movement - Motor Arms (both separate) Motor Arm (right): (0) No drift Motor Arm (left): (0) No drift - Motor Legs (both separate) Motor Leg (right): (0) No drift Motor Leg (left): (0) No drift - Limb Ataxia Limb Ataxia: (0) Absent - Sensory Sensory: (0) Normal - Best Language Best Language: (0) No aphasia - Dysarthria Dysarthria: (0) Normal Results - Vitals Vitals: Vital Signs - 24 hr 08/25/21 08/25/21 08/25/21 11:17 11:28 12:00 Temperature 36.3 C L Heart Rate 69 60 56 L Respiratory 21 18 21 Rate Blood Pressure 188/75 H 185/61 H O2 Saturation 100 100 99 08/25/21 14:00 Temperature Heart Rate 69 Respiratory 18 Rate Blood Pressure 189/62 H O2 Saturation 100 Oxygen O2 Source Room air - EKG (time done) 1201 Rate: Rate (enter#) (54) Rhythm: NSR Harrod: Normal Intervals: Normal NM QRS: Normal Ischemia: Normal ST segments - Labs Labs: Laboratory Tests 08/25/21 08/25/21 11:26 11:26 WBC 7.0 RBC 4.19 L Hgb 12.9 Hct 39.6 MCV 94.5 MCH 30.8 MCHC 32.6 RDW 12.9 Plt Count 264 MPV 9.1 Neut # (Auto) 4.6 Lymph # (Auto) 1.7 Jennings # (Auto) 0.6 Eos # (Auto) 0.1 Baso # (Auto) 0.1 Absolute Nucleated RBC 0.00 Nucleated RBC % 0.0 Sodium 136 Potassium 3.9 Chloride 102 Carbon Dioxide 26 Anion Gap 8.0 BUN 29 H Creatinine 1.1 H Estimated GFR (MDRD) 47 L Glucose 118 H Calcium 9.4 Total Bilirubin 0.4 AST 15 ALT 13 Alkaline Phosphatase 62 Total Protein 7.5 Albumin 4.1 Globulin 3.4 Albumin/Globulin Ratio 1.2 Lipase 35 - Rads (name of study) Ct angio head Radiology: Final report received, EMP read contemporaneously, See rad report CT angio neck Radiology: Final report received, EMP read contemporaneously, See rad report PD MEDICAL DECISION MAKING - ED course Complexity details: reviewed results, re-evaluated patient, considered differential, d/w patient, d/w family ED course: No acute findings on head CT or angiogram of the head or neck. 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 Patient never had symptoms with this. We will have her start on an aspirin daily and follow-up with her doctor for echocardiogram and brain MRI As well as further risk stratification. Patient and family counseled regarding signs and symptoms for which I believe and urgent re-evaluation would be necessary. Patient with good understanding of and agreement to plan and is comfortable going home at this time This document was made in part using voice recognition software. While efforts are made to proofread this document, sound alike and grammatical errors may occur. Departure - Departure Disposition: 01 Home, Self Care Clinical Impression: TIA (transient ischemic attack) Condition: Good Instructions: ED Transient Ischemic Attack Follow-Up: Jean,Ronald S, MD [Physician No Access] - Tomorrow Comments: Please follow-up with your doctor for further care. It is recommended that you have an echocardiogram and a brain MRI scheduled this week. Please contact your doctor tomorrow to have these scheduled. Please start on a full dose aspirin daily. Return if you worsen. CT Neck Angiogram: IMPRESSION: Calcification and irregularity can be seen involving the carotid bifurcations, including approximately 50% narrowing seen involving the left proximal internal carotid artery. Areas of calcification narrowing can be seen involving the extracranial vertebral arteries, with approximately 50% narrowing seen involving each side proximally and 30-40% narrowing seen distally. Incidental note is made of: Tortuous internal carotid arteries Moderate cervical spine degenerative change The estimate of stenosis included in the report of the imaging study was calculated using the NASCET method CT head angio: IMPRESSION: No intracranial hemorrhage is seen. No significant intracranial arterial abnormalities are seen. No significant intracranial abnormality is seen. Remote left MCA territory infarction.
--- NOTE | 2021-08-25 13:51 | CT Report ---
PROCEDURE: ANGIO HEAD W/WO INDICATIONS: Slurred speech x30 minutes 4 days ago CONTRAST: IV CONTRAST: Isovue 300 ml: 80 PO CONTRAST: *NO PO CONTRAST TECHNIQUE: Precontrast 4.5 mm thick angled axial sections acquired from the foramen magnum to the vertex. Afte r the administration of intravenous contrast, 1 mm thick sections acquired through the [place] is. Postcontrast 4.5 mm thick sections then re-acquired from the foramen magnum to the vertex. 3-di mensional ziyyhzb-imgpjaghx-zxuviqnlbs (MIP) and/or volume rendering reformats were acquired of the c entral intracranial vasculature. For radiation dose reduction, the following was used: automated ex posure control, adjustment of mA and/or kV according to patient size. COMPARISON: Prior noncontrast head CT, 11/12/2017. Correlation is made with the accompanying neck CT angiogram, 08/25/2021. FINDINGS: Image quality: Excellent. Anterior circulation: Intracranial internal carotid arteries are normal in size and flow. The flow within the paired anterior cerebral arteries is normal and symmetric. The flow within the middle cer ebral arteries is normal and symmetric. The anterior communicating artery is seen. No aneurysms are seen. Posterior circulation: Visualized portions of the vertebral arteries demonstrate normal caliber, and join to form a normal appearing basilar artery. Flow within the posterior cerebral arteries is norm al and symmetric. No aneurysms are seen. CSF spaces: Ventricles are normal in size and shape. Basal cisterns are patent. No extra-axial flu id collections. Brain: There is a remote left MCA territory infarction seen. No midline shift. No intracranial bleeds or masses. [place]-white matter interface appears intact. Skull and face: Calvarium and facial bones appear intact, without suspicious lesions. Sinuses: There is a right maxillary sinus mucus retention cyst seen. Visualized sinuses and mastoids are otherwise clear. IMPRESSION: No intracranial hemorrhage is seen. No significant intracranial arterial abnormalities are seen. No significant intracranial abnormality is seen. Remote left MCA territory infarction. Reviewed by: Victoriano Davidson MD on 08/25/2021 12:50 PM AKDT Approved by: Victoriano Davidson MD on 08/25/2021 12:50 PM AKDT Station ID: [id number]
--- NOTE | 2021-08-25 13:56 | CT Report ---
PROCEDURE: ANGIO NECK W INDICATIONS: Slurred speech x30 minutes 4 days ago CONTRAST: IV CONTRAST: Isovue 300 ml: 80 PO CONTRAST: *NO PO CONTRAST TECHNIQUE: After the administration of intravenous contrast, 1.5 mm axial sections acquired from the aortic arch to the [place] of [place]. Coronal 3-D maximum intensity projection (MIP) and/or volume rendering ref ormats were then performed. For radiation dose reduction, the following was used: automated exposur e control, adjustment of mA and/or kV according to patient size. COMPARISON: Correlation is made with the accompanying head CT exam, 08/25/2021. FINDINGS: Image quality: Excellent. Carotid system: The great vessels demonstrate a conventional anatomy as they arise from the aortic a rch. The origins of the common carotid arteries appear patent. The common carotid arteries demonstr ate normal calibers and courses. The bifurcation regions demonstrate atherosclerotic calcification a nd irregularity, with 30-40% narrowing involving the right proximal internal carotid artery and appro ximately 50% narrowing involving the left proximal internal carotid artery. The more distal internal carotid arteries demonstrate no hemodynamically significant narrowing, although there is at least mod erate tortuosity seen. Posterior circulation: The origins of the vertebral arteries appear patent. The extracranial vertebr al arteries demonstrate areas of focal calcification, with at least 50% narrowing, as on the left on series 7 image 48 and on the right on series 7 image 35. Focal calcification can be seen involving th e distal V3 segments on both sides, with 30-40% narrowing on each side. Soft tissues: Visualized neck soft tissues demonstrate no suspicious abnormalities. The thyroid is normal in size and there are no incidental findings. Bones: No suspicious bony lesions. Visualized cervical spine appears normally aligned. Moderate c ervical spine degenerative change can be seen. IMPRESSION: Calcification and irregularity can be seen involving the carotid bifurcations, including approximatel y 50% narrowing seen involving the left proximal internal carotid artery. Areas of calcification narrowing can be seen involving the extracranial vertebral arteries, with appr oximately 50% narrowing seen involving each side proximally and 30-40% narrowing seen distally. Incidental note is made of: Tortuous internal carotid arteries Moderate cervical spine degenerative change The estimate of stenosis included in the report of the imaging study was calculated using the NASCET method Reviewed by: Victoriano Davidson MD on 08/25/2021 12:55 PM AKDT Approved by: Victoriano Davidson MD on 08/25/2021 12:55 PM MILLI Station ID: [id number]
[2021-08-25 14:11] VITALS: BP 189/62
[2021-08-25] MEDS ORDERED: IOPAMIDOL-300 100 ML VIAL IVP ONE (16:42)
== END 2021-08-25 15:39 | disposition home or self-care (01) ==
LOC: ED 11:08
DX: G45.9 Transient cerebral ischemic attack, unspecified (principal); Z87.891 Personal history of nicotine dependence
CPT/HCPCS: 36415; 70496; 70498; 80053; 83690; 85025; 93005; 99284; Q9967

== ENCOUNTER 2021-08-27 14:19 | Outpatient (CLI) | payer MEDICARE, OTHER | END 2021-08-27 14:20 | disposition critical access hospital (66) | LOC: EMS 14:19 | DX: G45.9 Transient cerebral ischemic attack, unspecified (principal) | CPT/HCPCS: A0425; A0429 ==

== ENCOUNTER 2021-08-27 14:47 | Emergency (ER) | payer MEDICARE, OTHER ==
--- NOTE | 2021-08-27 15:14 | ED Physician Documentation ---
PD HPI FOCAL NEURO - Stated complaint Stated Complaint: DIFFICULTY SPEAKING - Chief complaint Chief Complaint: Neuro - History obtained from History obtained from: Patient - History of Present Illness Timing - onset: Last night Timing - details: Gradual onset Severity of deficit: Mild Weakness: No: Face, Arm, Hand, Leg, Foot, Right, Left, Other Numbness: No: Face, Arm, Hand, Leg, Foot, Right, Left Associated symptoms: No: Headache, Nausea / vomiting, Seizure, Syncope, Fall, Head injury, Chest pain, Neck pain, Back pain, Fever Contributing factors: negative: Anticoagulated, Vascular dz, Atrial fibrillation, Prosthetic heart valve Baseline status: positive: A&OX3, ambulatory, indep Recently seen: Emergency Dept (2 days ago for same. no acute findings on angiogram head and neck.) - Additional information Additional information: Patient states that she had slurred speech approximately 6 days ago that lasted for about 20 to 30 minutes. No acute findings on CT angiogram of the head and neck 2 days ago. She states the symptoms recurred today, but each episode lasted less than 2 minutes. There were 2 episodes. She started on aspirin 2 days ago as instructed. No facial droop. No arm or leg weakness. Nothing makes it better or worse. Currently asymptomatic. Review of Systems Ten Systems: 10 systems reviewed and negative Constitutional: denies: Fever, Chills Nose: denies: Rhinorrhea / runny nose, Congestion GI: denies: Nausea, Vomiting : denies: Dysuria Skin: denies: Rash Musculoskeletal: denies: Neck pain, Back pain Neurologic: denies: Syncope, Headache PD PAST MEDICAL HISTORY - Past Medical History Cardiovascular: Hypertension Respiratory: None Neuro: Other Endocrine/Autoimmune: None GI: GERD, Hiatal hernia, C.difficile : Incontinence HEENT: Other Psych: None Musculoskeletal: Osteoarthritis, Osteopenia Derm: None, Other - Past Surgical History Past Surgical History: Yes 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 HEENT: Tonsil/Adenoidectomy - Present Medications Home Medications: Ambulatory Orders Medication Instructions Recorded Confirmed Losartan Potassium 180 mg PO DAILY 02/22/16 08/27/21 Fexofenadine HCl 1 tab PO DAILY 07/18/18 08/27/21 Aspirin EC [Ecotrin] 325 mg PO DAILY #30 tablet 08/27/21 Chlorthalidone 25 mg PO DAILY 08/27/21 08/27/21 - Allergies Allergies/Adverse Reactions: Allergies Allergy/AdvReac Type Severity Reaction Status Date / Time naproxen AdvReac Unknown Verified 08/27/21 15:06 - Social History Does the pt smoke?: No Smoking Status: Never smoker Does the pt drink ETOH?: Yes Does the pt have substance abuse?: No - Immunizations Immunizations are current?: Yes - POLST Patient has POLST: No POLST Status: Full Code (with CPR but no incubation.) PD ED PE NORMAL - Vitals Vital signs reviewed: Yes - General General: Alert and oriented X 3, No acute distress - HEENT HEENT: PERRL, Moist mucous membranes - Neck Neck: Supple, no meningeal sign - Cardiac Cardiac: RRR, Strong equal pulses - Respiratory Respiratory: No respiratory distress, Clear bilaterally - Abdomen Abdomen: Soft, Non tender, Non distended - Derm Derm: Warm and dry - Extremities Extremities: No edema, No calf tenderness / cord - Neuro Neuro: Alert and oriented X 3, public service representative 2-12 intact, No motor deficit, No sensory deficit, Normal speech Eye Opening: Spontaneous Motor: Obeys Commands Verbal: Oriented GCS Score: 15 - Psych Psych: Normal mood, Normal affect NIHSS - Time Time: 15:00 - Level of Consciousness Level of consciousness: (0) Alert, Keenly responsive LOC Questions: (0) Answers both Q's correct LOC Commands: (0) Performs both correctly - Gaze Best Gaze: (0) Normal - Visual Visual: (0) No loss - Facial Palsy Facial Palsy: (0) Normal, symmetrical movement - Motor Arms (both separate) Motor Arm (right): (0) No drift Motor Arm (left): (0) No drift - Motor Legs (both separate) Motor Leg (right): (0) No drift Motor Leg (left): (0) No drift - Limb Ataxia Limb Ataxia: (0) Absent - Sensory Sensory: (0) Normal - Best Language Best Language: (0) No aphasia - Dysarthria Dysarthria: (0) Normal - Extinction and Inattention (formally neg Extinction and inattention: (0) No abnormality - Total Score/Results Total Score/Result: 0 Results - Vitals Vitals: Vital Signs - 24 hr 08/27/21 08/27/21 14:54 18:13 Temperature 37 C Heart Rate 71 72 Respiratory 18 17 Rate Blood Pressure 155/59 H 191/61 H O2 Saturation 100 98 Oxygen O2 Source Room air - Labs Labs: Laboratory Tests 08/27/21 08/27/21 08/27/21 15:15 15:15 15:15 WBC 7.3 RBC 4.26 Hgb 13.1 Hct 40.1 MCV 94.1 MCH 30.8 MCHC 32.7 RDW 13.0 Plt Count 245 MPV 8.7 Neut # (Auto) 4.9 Lymph # (Auto) 1.6 [place] # (Auto) 0.7 Eos # (Auto) 0.2 Baso # (Auto) 0.0 Absolute Nucleated RBC 0.00 Nucleated RBC % 0.0 PT 11.1 INR 1.0 APTT 30.0 Sodium 136 Potassium 4.1 Chloride 100 L Carbon Dioxide 27 Anion Gap 9.0 BUN 31 H Creatinine 1.0 Estimated GFR (MDRD) 53 L Glucose 133 H Calcium 9.2 Total Bilirubin 0.6 AST 16 ALT 14 Alkaline Phosphatase 64 Total Protein 7.6 Albumin 4.1 Globulin 3.5 Albumin/Globulin Ratio 1.2 Lipase 32 - Rads (name of study) Brain MRI without Radiology: Final report received, EMP read contemporaneously, See rad report PD MEDICAL DECISION MAKING - ED course Complexity details: reviewed results, re-evaluated patient, considered differential, d/w patient ED course: Patient with neurological symptoms of unclear etiology. Her last 2 episodes were very short in nature, lasting 2 minutes. She only started on aspirin 2 days ago. Her ABCD 2 score based on her current symptoms would be 3. This would indicate the need for aspirin. Her doctor however may want to put her on dual agent antiplatelet therapy for [address] angiograms from 2 days ago did not reveal any significant abnormalities. Her brain MRI today does not reveal any significant abnormalities. Patient is fully asymptomatic here. Recommend that she discuss with her doctor starting a statin. We will have her follow-up with her doctor tomorrow. She will also likely need an echocardiogram. She is not in atrial fibrillation here and has no history of this. Patient counseled regarding signs and symptoms for which I believe and urgent re-evaluation would be necessary. Patient with good understanding of and agreement to plan and is comfortable going home at this time This document was made in part using voice recognition software. While efforts are made to proofread this document, sound alike and grammatical errors may occur. Departure - Departure Disposition: 01 Home, Self Care Clinical Impression: TIA (transient ischemic attack) Condition: Good Instructions: ED Transient Ischemic Attack Follow-Up: Ronald Pena MD [Primary Care Provider] - Within 1 week Prescriptions: Aspirin EC [Ecotrin] 325 mg PO DAILY #30 tablet Comments: Please follow-up with your doctor this week for further care. Your MRI does not show any acute abnormalities today. Make sure that you are taking a full dose aspirin daily. Your doctor may want to add a second antiplatelet agent to you, but as your symptoms have been less than 10 minutes, he will likely you just want to leave you on aspirin. He may want to add a statin as well. Your prescription was sent to [facility] in [place]. MRI Results: IMPRESSION: 1. No acute intracranial abnormalities. 2. Moderate cerebral volume loss and chronic microvascular ischemic changes. 3. A 1.1 x 1.9 cm polyp or mucous retention cyst in the right maxillary sinus.
[2021-08-27 15:19] LABS: BASOPHILS % (AUTO) 0.4 %; EOSINOPHILS # (AUTO) 0.2 10^3/uL (0.0-0.7); HCT - HEMATOCRIT 40.1 % (37.0-47.0); HGB - HEMOGLOBIN 13.1 g/dL (12.0-16.0); LYMPHOCYTES # (AUTO) 1.6 10^3/uL (1.5-3.5); LYMPHOCYTES % (AUTO) 21.8 %; MEAN CORPUSCULAR HEMOGLOBIN 30.8 pg (27.0-31.0); MEAN CORPUSCULAR HGB CONC 32.7 g/dL (32.0-36.0); MEAN CORPUSCULAR VOLUME 94.1 fL (81.0-99.0); MEAN PLATELET VOLUME 8.7 fL (7.9-10.8); MONOCYTES # (AUTO) 0.7 10^3/uL (0.0-1.0); MONOCYTES % (AUTO) 9.1 %; NEUTROPHILS # (AUTO) 4.9 10^3/uL (1.5-6.6); NEUTROPHILS % (AUTO) 66.3 %; PLT - PLATELET COUNT 245 10^3/uL (130-450); RED BLOOD COUNT 4.26 10^6/uL (4.20-5.40); WHITE BLOOD COUNT 7.3 x10^3/uL (4.8-10.8)
[2021-08-27 15:32] LABS: ALBUMIN 4.1 g/dL (3.2-5.5); ALBUMIN/GLOBULIN RATIO 1.2 (1.0-2.2); BILIRUBIN,TOTAL 0.6 mg/dL (0.2-1.0); CALCIUM 9.2 mg/dL (8.5-10.3); POTASSIUM 4.1 mmol/L (3.5-5.0); TOTAL PROTEIN 7.6 g/dL (6.7-8.2)
[2021-08-27 15:59] LABS: PT - PROTHROMBIN TIME 11.1 secs (9.9-12.6)
[2021-08-27 18:13] VITALS: BP 191/61
--- NOTE | 2021-08-27 18:27 | MRI Report ---
PROCEDURE: Brain W/O INDICATIONS: mutliple episodes of slurred speech in past week TECHNIQUE: Noncontrast axial T1 spin echo, axial T2 fast spin echo, sagittal and axial FLAIR, coronal T2 fast sp in echo, axial gradient echo, axial diffusion and ADC through the brain. COMPARISON: CT head without, 11/12/2017. CT head angiogram with and without, 08/25/2021. FINDINGS: Image quality: Excellent. CSF Spaces: Basal cisterns are patent. No extra-axial fluid collections. Ventricles are normal in size and shape. Brain: No intracranial masses or hemorrhage. Moderate cerebral volume loss. There are multiple foci of T2/FLAIR hyperintensity in periventricular white matter, as well as naeem compatible with chronic s mall vessel ischemic changes. Brainstem appears normal. Diffusion-weighted images demonstrate no acu te ischemic insult. No chronic ischemic insults. Normal intravascular flow voids are present. Skull and face: Calvarium has normal marrow signal. Orbits appear normal. Sinuses: There is a 1.1 x 1.9 cm polyp or mucous retention cyst in the anterior right maxillary sinus . Mastoids are clear. IMPRESSION: 1. No acute intracranial abnormalities. 2. Moderate cerebral volume loss and chronic microvascular ischemic changes. 3. A 1.1 x 1.9 cm polyp or mucous retention cyst in the right maxillary sinus. Reviewed by: Mariam Sanz MD on 08/27/2021 5:26 PM AKDT Approved by: Mariam Sanz MD on 08/27/2021 5:26 PM AKDT Station ID: [id number]
[2021-08-27 18:58] LABS: BILIRUBIN,URINE NEGATIVE (NEGATIVE); GLUCOSE, URINE (UA) NEGATIVE (NEGATIVE); KETONES,URINE (UA) NEGATIVE (NEGATIVE); LEUKOCYTE ESTERASE, URINE NEGATIVE (NEGATIVE); NITRITE,URINE NEGATIVE (NEGATIVE); OCCULT BLOOD,URINE NEGATIVE (NEGATIVE); PROTEIN,URINE NEGATIVE (NEGATIVE); UROBILINOGEN,URINE 0.2 (NORMAL) E.U./dL (NORMAL)
[2021-08-27 19:00] LABS: CLARITY,URINE CLEAR (CLEAR)
== END 2021-08-27 18:58 | disposition home or self-care (01) ==
LOC: EDUNIT# → ED 14:47
DX: G45.9 Transient cerebral ischemic attack, unspecified (principal); I10 Essential (primary) hypertension
CPT/HCPCS: 36415; 80053; 81001; 81003; 83690; 85025; 85610; 85730; 87086; 99282; 99284

== ENCOUNTER 2021-09-30 10:40 | Outpatient (CLI) | payer MEDICARE, OTHER ==
[2021-09-30 14:30] LABS: CALCIUM 9.5 mg/dL (8.5-10.3); CREATININE 1.1 mg/dL (0.4-1.0); POTASSIUM 4.6 mmol/L (3.5-5.0)
[2021-09-30 14:39] LABS: ESTIMATED AVERAGE GLUCOSE 143 mg/dL (70-100); HEMOGLOBIN A1c% 6.6 % (4.27-6.07)
== END 2021-09-30 10:41 | disposition home or self-care (01) ==
LOC: LAB.S 10:40
PROVIDERS: ATTEND Internal Medicine
DX: E11.9 Type 2 diabetes mellitus without complications (principal)
CPT/HCPCS: 36415; 80048; 83036

== ENCOUNTER 2022-05-01 11:56 | Day surgery (SDC) | payer MEDICARE, OTHER ==
[2022-05-01 12:07] VITALS: BP 161/42
--- NOTE | 2022-05-01 13:10 | ANESTHESIA ---
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 Abx for cellulitis - Procedure PICC line placement Vital Signs: Temp Pulse Resp BP Pulse Ox O2 Flow Rate 36.1 C L 80 16 161/42 H 100 05/01/22 12:05 05/01/22 12:05 05/01/22 12:05 05/01/22 12:05 05/01/22 12:05 Height: 5 ft 5 in - NPO Other (not NPO) - Is Patient ?: No Home Medications and Allergies RX: Losartan Potassium 180 mg PO DAILY 02/22/16 RX: Fexofenadine HCl 1 tab PO DAILY 07/18/18 RX: Chlorthalidone 25 mg PO DAILY 08/27/21 Ciprofloxacin HCl [Cipro] 500 mg PO BID 12/04/21 Allergies/Adverse Reactions: Allergies Allergy/AdvReac Type Severity Reaction Status Date / Time naproxen AdvReac Unknown Verified 11/27/21 11:28 Anes History & Medical History - Anesthetic History Anesthesia Complications: reports: No previous complications Family history of Anesthesia Complications: Denies Family history of Malignant Hyperthermia: Denies - Medical History Cardiovascular: reports: Hypertension Pulmonary: reports: None Gastrointestinal: reports: GERD, Hiatal hernia, C.difficile Urinary: reports: Incontinence Neuro: reports: Other Musculoskeletal: reports: Osteoarthritis, Osteopenia Endocrine/Autoimmune: reports: None Blood Disorders: reports: None Skin: reports: None, Other Smoking Status: Never smoker - Surgical History Eyes Ears Nose Throat (EENT): reports: Tonsil/Adenoidectomy Gynecologic: reports: Hysterectomy Orthopedic: reports: Knee replacement Exam General: Alert, Oriented x3, Cooperative Dental: WNL Mouth Openin Fingerbreadth Neck Mobility: Normal Mallampati classification: III Thyromental Distance: 4-6 cm Respiratory: Lungs clear Cardiovascular: Regular rate Plan Anesthesia Type: MAC Consent for Procedure(s) Verified and Reviewed: Yes Code Status: Attempt Resuscitation ASA classification: 3-Severe systemic disease Is this case an emergency?: No
--- NOTE | 2022-05-01 13:11 | ANESTHESIA PROCEDURE NOTE ---
Anesth Central Line Template - Central Line Central Line Preparation: Consent Obtained Central line location: Right Basilic Central line type: PICC Double Lumen Central line catheter tip site resides: Superior vena cava (SVC) Central line aftercare: Secured, Placement confirmed, No pneumothorax, No complications, Bundle checklist complete, Pt tolerated well
--- NOTE | 2022-05-01 13:13 | CONSULTATION NOTE ---
Consultation Report: consulted by MARIANO PARK in [place] for PICC line placement as OP. Informed consent obtained. US guided PICC placed in RUE, sterile technique maintained, easy placement. 5Fr double lumen PICC, both ports aspirate and flush easily. Pt tolerated well. Placement confirmed with port CXR. NAC Pt ok to be discharged home.
--- NOTE | 2022-05-01 13:32 | XRAY Report ---
PROCEDURE: Chest for Line Placement INDICATIONS: PICC line placement TECHNIQUE: One view of the chest was acquired. COMPARISON: None. FINDINGS: Surgical changes and devices: Right PICC line is present distal tip projecting over the proximal SVC . Lungs and pleura: No pleural effusions or pneumothorax. Lungs are clear. Mediastinum: Mediastinal contours appear normal. Heart size is normal. Bones and chest wall: No suspicious bony lesions. Overlying soft tissues appear unremarkable. IMPRESSION: Right PICC as above. Reviewed by: Susan Gibson MD on 05/01/2022 1:31 PM PST Approved by: Susan Gibson MD on 05/01/2022 1:31 PM PST Station ID: [id number]
== END 2022-05-01 11:57 | disposition home or self-care (01) ==
LOC: SDS 11:56
PROVIDERS: ATTEND Nurse Anesthetist, Certified Registered
DX: L97.321 Non-pressure chronic ulcer of left ankle limited to breakdown of skin (principal); I10 Essential (primary) hypertension
CPT/HCPCS: 36569; C1751

== ENCOUNTER 2023-05-09 20:34 | Outpatient (CLI) | payer MEDICARE, OTHER | END 2023-05-09 23:59 | disposition left against medical advice (07) | LOC: EMS 20:34 | DX: Z03.89 Encounter for observation for other suspected diseases and conditions ruled out (principal) ==

== ENCOUNTER 2023-07-13 13:24 | Emergency (ER) | payer MEDICARE, OTHER ==
[2023-07-13 13:55] VITALS: BP 215/66; O2SAT 98
--- NOTE | 2023-07-13 14:37 | XRAY Report ---
PROCEDURE: Ribs 2V LT INDICATIONS: left rib pain post GLF TECHNIQUE: 2 views of the ribs were acquired. COMPARISON: None. FINDINGS: Bones and chest wall: Subtle contour deformity involving right lateral eighth rib is seen concerning for nondisplaced rib fracture. No suspicious bony lesions. Overlying soft tissues appear unremarkab le. Lungs and pleura: Blunting of left costophrenic angle is seen suggestive of trace left pleural effus ion. No focal infiltrate or pneumothorax. IMPRESSION: No displaced fracture or pneumothorax. Possible nondisplaced right lateral eighth rib fracture with t race right pleural effusion. Reviewed by: Reggie Savage MD on 07/13/2023 2:36 PM PDT Approved by: Reggie Savage MD on 07/13/2023 2:36 PM PDT Station ID: [id number]
--- NOTE | 2023-07-13 14:38 | XRAY Report ---
PROCEDURE: Shoulder 2+V LT INDICATIONS: left shoulder pain post GLF TECHNIQUE: 3 views of the shoulder were acquired. COMPARISON: None. FINDINGS: Bones: No fractures or dislocations. No suspicious bony lesions. Visualized ribs appear intact. G lenohumeral arthritic change as well as acromioclavicular. Soft tissues: No suspicious soft tissue calcifications. The visualized lungs are within normal limi ts. IMPRESSION: No visualized acute fracture or dislocation. However, occult injury cannot be excluded. Recommend saud rt interval imaging follow-up in 7-10 days as clinically indicated for additional evaluation. Reviewed by: Susan Gibson MD on 07/13/2023 2:37 PM PDT Approved by: Susan Gibson MD on 07/13/2023 2:37 PM PDT Station ID: [id number]
--- NOTE | 2023-07-13 17:17 | ED Physician Documentation ---
History of Present Illness - Stated complaint Stated Complaint: LT RIB PX - Chief complaint Chief Complaint: Trauma Ch/Bk - Additonal information Additional information: 88-year-old female presents emergency department for left rib pain. Patient says that she slipped and fell onto her side she is unsure how exactly this happened but happened about 3 to 4 days ago she said that she is having increased pain with inhalation to the left breast rib region she is also having some pain to the left shoulder. She did not lose consciousness did not hit her head. She is not any blood thinners. 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 HEENT: Tonsil/Adenoidectomy - Present Medications Home Medications: Ambulatory Orders Medication Instructions Recorded Confirmed Losartan Potassium 180 mg PO DAILY 02/22/16 08/06/22 Fexofenadine HCl 1 tab PO DAILY 07/18/18 08/06/22 Chlorthalidone 25 mg PO DAILY 08/27/21 08/06/22 Ferrous Sulfate [Feosol] 325 mg PO DAILY 06/02/22 08/06/22 Omeprazole 160 mg PO DAILY 06/02/22 08/06/22 Rosuvastatin Calcium [Crestor] 20 mg PO DAILY 06/02/22 08/06/22 Gentamicin Sulfate See Rx Instructions .ROUTE 07/01/22 08/06/22 .COMPLEX #60 gm Acetaminophen/Cod 300/30 [Tylenol 1 tab PO Q4HR PRN #20 tablet 07/22/22 #3] Mupirocin Calcium [Mupirocin] See Rx Instructions .ROUTE 07/22/22 .COMPLEX #30 gm Mupirocin See Rx Instructions .ROUTE 07/29/22 .COMPLEX #22 gm - Allergies Allergies/Adverse Reactions: Allergies Allergy/AdvReac Type Severity Reaction Status Date / Time No Known Drug Allergies Allergy Verified 07/13/23 13:54 - Social History Does the pt smoke?: No Smoking Status: Never smoker Does the pt drink ETOH?: Yes Does the pt have substance abuse?: No - Immunizations Immunizations are current?: Yes - POLST Patient has POLST: No POLST Status: Full Code (with CPR but no incubation.) PD ED PE NORMAL - Vitals Vital signs reviewed: Yes - General General: Alert and oriented X 3, No acute distress, Well developed/nourished - HEENT HEENT: Atraumatic, PERRL, EOMI - Neck Neck: No bony TTP - Back Back: Other - Derm Derm: Normal color, Warm and dry, No rash - Free text exam Free text exam: Left anterior rib tenderness just below left breast. Neck and back are without deformity, external skin changes, or signs of trauma. Curvature of the cervical, thoracic, and lumbar spine are within normal limits. Bony features of the shoulders and hips are of equal height bilaterally. Posture is upright, gait is smooth, steady, and within normal limits. No tenderness noted on palpation of the spinous processes. Spinous processes are midline. Cervical, thoracic, and lumbar paraspinal muscles are not tender and are without spasm. No discomfort is noted with flexion, extension, and [id number] rotation of the cervical spine, full range of motion is noted. Full range of motion including flexion, extension, and [id number] rotation of the thoracic and lumbar spine are noted and without discomfort. Straight leg raise test is negative bilaterally. Sensation to the upper and lower extremities is normal bilaterally. No clonus is noted. Card Player strength is normal bilaterally. Dorsi/plantar flexion is normal bilaterally. Results - Vitals Vitals: Vital Signs - 24 hr 07/13/23 07/13/23 13:47 17:27 Temperature 36.6 C Heart Rate 83 Respiratory 17 17 Rate Blood Pressure 215/66 H O2 Saturation 98 Oxygen O2 Source Room air - Rads (name of study) Left rib x-ray Relevant Findings:: Final report received, EMP independent interpretation of test, Other (Possible nondisplaced right lateral eighth rib fracture) Left shoulder x-ray Relevant Findings:: Final report received, EMP independent interpretation of test, Other (No visualized acute fracture or dislocation of the left shoulder) PD Medical Decision Making - ED course ED course: 88-year-old female presents emergency department for left rib pain. X-rays are completely actually found in eighth rib fracture on the right side but no significant abnormal findings on the left side. This is most likely a hairline fracture that is not visualized to the left rib region she has no pneumothorax of the left side. She is safe for discharge at this point in time left shoulder x-rays are also normal no acute findings or dislocations or other abnormal findings. Patient was offered narcotics for the severe amount of pain that she is in but she declined and said that she has a lot of oxycodone at home but absolute refuses to take any sort of narcotics she is told to alternate between Tylenol ibuprofen for any pain discomfort and told to follow-up with primary care provider as needed as well as applying topical analgesics such as lidocaine patches or Voltaren gel. Return precautions given safe for discharge. Departure - Departure Disposition: Home, Self Care Clinical Impression: Fracture, rib Qualifiers: Encounter type: initial encounter Rib fracture type: single rib Fracture type: closed Laterality: left Qualified Code(s): S22.32XA - Fracture of one rib, left side, initial encounter for closed fracture Condition: Good Instructions: ED Fx Rib Comments: Thank you for trusting us with your care, we have evaluated you for left rib pain. There is found to be a small possible nondisplaced right lateral rib frac ture on the eighth rib with very trace pleural effusion. There is nothing to do about this except for to take Tylenol and ibuprofen for pain and discomfort we offered narcotics but you declined at this time. Full with your primary care provider as needed please come back to the emergency department sooner with any fevers or chills, shortness of breath, chest pain, or any other concerning symptoms. Forms: PCP List Discharge Date/Time: 07/13/23 17:26
== END 2023-07-13 17:26 | disposition home or self-care (01) ==
LOC: ED 13:24
DX: S22.32XA Fracture of one rib, left side, initial encounter for closed fracture (principal); W01.0XXA Fall on same level from slipping, tripping and stumbling without subsequent striking against object, initial encounter; I10 Essential (primary) hypertension; Z79.899 Other long term (current) drug therapy
CPT/HCPCS: 99283

== ENCOUNTER 2023-11-02 11:28 | Outpatient (CLI) | payer MEDICARE, OTHER ==
--- NOTE | 2023-11-02 16:17 | XRAY Report ---
PROCEDURE: Hip w/Pelvis 2-3V RT INDICATIONS: HIP PAIN,RIGHT TECHNIQUE: An AP view the pelvis and a frog-leg lateral view of the right hip were acquired. COMPARISON: None. FINDINGS: Bones: No fractures or dislocations. Expected appearance of orthopedic surgical hardware, status pos t remote ORIF of the right hip. No evidence of hardware failure or loosening. Mild to moderate bilate ral degenerative hip arthritis. No suspicious bony lesions. Soft tissues: No suspicious soft tissue calcifications or masses. Dense aortobiiliac atherosclerotic calcifications.. IMPRESSION: 1. No acute bony abnormality. 2. Mild to moderate bilateral degenerative arthritis. 3. Expected appearance of orthopedic surgical hardware. 4. Peripheral vascular disease. Reviewed by: Shahab Garg MD on 11/02/2023 4:16 PM PDT Approved by: Shahab Garg MD on 11/02/2023 4:16 PM PDT Station ID: [id number]
== END 2023-11-02 11:29 | disposition home or self-care (01) ==
LOC: DI.S 11:28
PROVIDERS: ATTEND Orthopaedic Surgery
DX: M16.0 Bilateral primary osteoarthritis of hip (principal); I73.9 Peripheral vascular disease, unspecified